=== PATIENT | female | born 1945 | race Caucasian/White ===

== ENCOUNTER 2017-10-21 08:09 | Day surgery (SDC) | payer MEDICARE ==
[2017-10-14 15:36] VITALS: BMI 31.8
[~2017-10-21 08:09] MED LIST: LACTATED RINGERS 1,000 ML IV SCH
[2017-10-21 09:32] VITALS: TEMP 97.6
[2017-10-21] MEDS ORDERED: LIDOCAINE 1% 20 ML VIAL (10MG/ML) FOR IV START INTRADERMA ONE (09:35)
--- NOTE | 2017-10-21 09:46 | P.GSHP ---
History of Present Illness H&P Date: 10/21/17 Chief Complaint: Gastritis This 9-year-old female who's had complaints of epigastric pain gastritis. She will stay for EGD. Past Medical History Past Medical History: CVA/TIA, GERD/Reflux, Hyperlipidemia, Skin Disorder, Thyroid Disorder Additional Past Medical History / Comment(s): TIA 2013, CHRONIC CONSTIPATION, PSORIASIS History of Any Multi-Drug Resistant Organisms: None Reported Past Surgical History: Appendectomy, Cholecystectomy, Hysterectomy, Joint Replacement, Orthopedic Surgery Additional Past Surgical History / Comment(s): RUPTURED OVARIAN CYST. RT SHOULDER SX. RT TKA. RT FOOT SX x 2-. COLONOSCOPY, EGD Past Anesthesia/Blood Transfusion Reactions: No Reported Reaction Past Psychological History: Depression Smoking Status: Never smoker Past Alcohol Use History: None Reported Past Drug Use History: None Reported - Past Family History Mother Family Medical History: Cancer Father Family Medical History: Cancer Sister(s) Family Medical History: Cancer Medications and Allergies Home Medications Medication Instructions Recorded Confirmed Type Apixaban [Eliquis] 2.5 mg PO HS 10/14/17 10/14/17 History DULoxetine HCL [Cymbalta] 120 mg PO HS 10/14/17 10/14/17 History Furosemide [Lasix] 20 mg PO DAILY 10/14/17 10/14/17 History Levothyroxine Sodium [Synthroid] 75 mcg PO DAILY 10/14/17 10/14/17 History Linaclotide [Linzess] 290 mcg PO HS 10/14/17 10/14/17 History Pantoprazole Sodium [Protonix] 40 mg PO HS 10/14/17 10/14/17 History Pravastatin Sodium [Pravachol] 80 mg PO HS 10/14/17 10/14/17 History Zolpidem Tartrate [Ambien] 10 mg PO HS 10/14/17 10/14/17 History Coregunknown Dose) 1 tab PO HS 10/21/17 10/21/17 History Allergies Allergy/AdvReac Type Severity Reaction Status Date / Time ciprofloxacin [From Cipro] Allergy Rash/Hives Verified 10/14/17 15:23 Sulfa (Sulfonamide Allergy Rash/Hives Verified 10/14/17 15:23 Antibiotics) Surgical - Exam Vital Signs Temp Pulse Resp BP Pulse Ox 97.6 F 100 18 175/75 97 10/21/17 09:30 10/21/17 09:30 10/21/17 09:30 10/21/17 09:30 10/21/17 09:30 - General well developed, no distress - Eyes PERRL - ENT normal pinna - Neck no masses - Respiratory normal expansion - Cardiovascular Rhythm: regular - Abdomen Abdomen: soft, non tender Assessment and Plan Assessment: Gastritis. We'll perform EGD.
[2017-10-21] MEDS ORDERED: PROPOFOL 10 MG/ML 20 ML VIAL IV ONE (09:48)
--- NOTE | 2017-10-21 10:00 | P.OP ---
Date of Procedure: 10/21/17 Preoperative Diagnosis: GERD Postoperative Diagnosis: GERD Procedure(s) Performed: EGD Anesthesia: MAC Surgeon: Kurt Valles Pathology: other (Antrum, esophagus) Condition: stable Disposition: PACU Description of Procedure: The patient's placed on the endoscopy table lateral position. She received IV sedation. The gastroscope placed oropharynx and passed in the esophagus into the stomach. Scope then placed through the pylorus. The first and second portion of the duodenum appeared normal. Scope was then brought back the antrum this appeared mildly inflamed a biopsies performed. The scope was retroflexed the patient was noted to have a sliding hiatal hernia. The GE junction was at 38 cm. The distal esophagus appeared mildly inflamed a biopsies performed. The proximal esophagus appeared normal. Scope was withdrawn for patient.
[2017-10-21 10:04] VITALS: RESP 16
[2017-10-21 10:15] VITALS: BP 156/84; PULSE 91
== END 2017-10-21 11:19 | disposition home or self-care (01) ==
LOC: ORWHC2ENDO 08:09
PROVIDERS: ATTEND Surgery
DX: K21.0 Gastro-esophageal reflux disease with esophagitis (principal); K29.50 Unspecified chronic gastritis without bleeding; K44.9 Diaphragmatic hernia without obstruction or gangrene; E78.5 Hyperlipidemia, unspecified; E07.9 Disorder of thyroid, unspecified; I48.91 Unspecified atrial fibrillation; I10 Essential (primary) hypertension; K59.09 Other constipation; L40.9 Psoriasis, unspecified; F32.9 Major depressive disorder, single episode, unspecified; Z88.2 Allergy status to sulfonamides; Z88.1 Allergy status to other antibiotic agents; Z79.01 Long term (current) use of anticoagulants; Z79.899 Other long term (current) drug therapy; Z86.73 Personal history of transient ischemic attack (TIA), and cerebral infarction without residual deficits; Z96.651 Presence of right artificial knee joint; Z90.49 Acquired absence of other specified parts of digestive tract; Z90.710 Acquired absence of both cervix and uterus; Z80.9 Family history of malignant neoplasm, unspecified
CPT/HCPCS: 43239; J2704; 88305; 88342

== ENCOUNTER → 2017-11-21 | Outpatient (CLI) | payer MEDICARE | END | disposition home or self-care (01) | LOC: LABPAT 14:47 | PROVIDERS: ATTEND Dermatology MOHS-Micrographic Surgery | DX: Z01.812 Encounter for preprocedural laboratory examination (principal); L40.0 Psoriasis vulgaris | CPT/HCPCS: 84132 ==

== ENCOUNTER 2017-12-01 11:46 | Day surgery (SDC) | payer MEDICARE ==
[2017-11-20 12:39] VITALS: BMI 32.9
[~2017-12-01 11:46] MED LIST changes: +DEXAMETHASONE SOD PHOSPHATE 10 MG/ML 1 ML VIAL IV ONE; +HEPARIN SODIUM,PORCINE 5,000 UNIT/ML 1 ML VIAL SQ ONE; +HYDROmorphone 0.5 MG/0.5 ML SYRINGE IVP PRN; -LACTATED RINGERS 1,000 ML IV SCH; +LIDOCAINE 1% 20 ML VIAL (10MG/ML) FOR IV START INTRADERMA PRN; +ONDANSETRON 4 MG/2 ML VIAL IVP ONE; +ceFAZolin IN SWFI 2 GM/20 ML SYRINGE IVP ONE
[2017-12-01] MEDS: LACTATED RINGERS 1,000 ML IV SCH (12:31)
[2017-12-01] MEDS ORDERED: MIDAZOLAM 2 MG/2 ML VIAL IV ONE ×2 (12:40)
--- NOTE | 2017-12-01 12:45 | P.GSHP ---
History of Present Illness H&P Date: 12/01/17 Chief Complaint: GERD Cyst 72-year-old female referred from Dr. Singh.The patient has had long- standing problems with reflux esophagitis. The patient underwent recent EGD is found have evidence of esophagitis. Patient has been well informed on the procedure of laparoscopic Mario fundoplication. The patient is aware the risk of the conversion to the open procedure, risk of injury to the stomach, liver and spleen. The patient is also a risk of recurrent GERD and dysphagia symptoms. The patient understands there is a postoperative diet of full liquids for 2 weeks after surgery. Past Medical History Past Medical History: CVA/TIA, GERD/Reflux, Hyperlipidemia, Osteoarthritis (OA) , Skin Disorder, Sleep Apnea/CPAP/BIPAP, Thyroid Disorder Additional Past Medical History / Comment(s): TIA 2013, CHRONIC CONSTIPATION, PSORIASIS, RAPID HEART RATE, USES A C PAP, PSORIATIC ARTHRITIS History of Any Multi-Drug Resistant Organisms: None Reported Past Surgical History: Appendectomy, Cholecystectomy, Hysterectomy, Joint Replacement, Orthopedic Surgery Additional Past Surgical History / Comment(s): RUPTURED OVARIAN CYST. RT SHOULDER SX. RT TKA. RT FOOT SX x 2-. COLONOSCOPY, EGD Past Anesthesia/Blood Transfusion Reactions: No Reported Reaction Smoking Status: Never smoker - Past Family History Mother Family Medical History: Cancer Father Family Medical History: Cancer Sister(s) Family Medical History: Cancer Additional Family Medical History / Comment(s): COLON CANCER, #2 SISTER PANCREATIC CANCER Medications and Allergies Home Medications Medication Instructions Recorded Confirmed Type DULoxetine HCL [Cymbalta] 120 mg PO HS 10/14/17 12/01/17 History Furosemide [Lasix] 20 mg PO DAILY PRN 10/14/17 12/01/17 History Levothyroxine Sodium [Synthroid] 75 mcg PO DAILY 10/14/17 12/01/17 History Linaclotide [Linzess] 290 mcg PO 1800 10/14/17 12/01/17 History Pantoprazole Sodium [Protonix] 40 mg PO HS 10/14/17 12/01/17 History Pravastatin Sodium [Pravachol] 80 mg PO HS 10/14/17 12/01/17 History Zolpidem Tartrate [Ambien] 10 mg PO HS 10/14/17 12/01/17 History Acetaminophen Tab [Tylenol Tab] 1,000 mg PO Q6HR PRN 11/20/17 12/01/17 History Carvedilol [Coreg] 12.5 mg PO BID 11/20/17 12/01/17 History Flecainide [Tambocor] 50 mg PO Q12HR 11/20/17 12/01/17 History busPIRone HCl [Buspar] 15 mg PO BID 11/20/17 12/01/17 History oxyCODONE-APAP 5-325MG [Percocet 1 tab PO Q6HR PRN 11/20/17 12/01/17 History 5-325 mg] Allergies Allergy/AdvReac Type Severity Reaction Status Date / Time ciprofloxacin [From Cipro] Allergy Rash/Hives Verified 12/01/17 12:19 estradiol Allergy Rash/Hives Verified 12/01/17 12:19 Sulfa (Sulfonamide Allergy Rash/Hives Verified 12/01/17 12:19 Antibiotics) Surgical - Exam Vital Signs Temp Pulse Resp BP Pulse Ox 97.6 F 79 16 156/77 96 12/01/17 12:15 12/01/17 12:15 12/01/17 12:15 12/01/17 12:15 12/01/17 12:15 - General well developed, no distress - Eyes PERRL - ENT normal pinna - Neck no masses - Respiratory normal expansion - Cardiovascular Rhythm: regular - Abdomen Abdomen: soft, non tender Results - Labs 11/21/17 14:57 Assessment and Plan Assessment: GERD. We will perform laparoscopic Mario fundal plication.
[2017-12-01] MEDS ORDERED: BUPIVACAINE-EPI 0.5%-1:200,000 10 ML VIAL SQ ONE (13:02)
[2017-12-01] MEDS ORDERED: ePHEDrine 50 MG/ML 1 ML AMP ONE (13:04)
[2017-12-01] MEDS ORDERED: SUCCINYLCHOLINE CHLORIDE 100 MG/5 ML SYR IV ONE (13:04)
[2017-12-01] MEDS ORDERED: MIDAZOLAM 2 MG/2 ML VIAL ONE (13:04)
[2017-12-01] MEDS ORDERED: fentaNYL (PF) 50 MCG/ML 2 ML AMP ONE (13:04)
[2017-12-01] MEDS ORDERED: ROCURONIUM BROMIDE 10 MG/ML 10 ML VIAL IV ONE (13:04)
[2017-12-01] MEDS ORDERED: GLYCOPYRROLATE 0.2 MG/ML 2 ML VIAL ONE (13:04)
[2017-12-01] MEDS ORDERED: NEOSTIGMINE 1 MG/ML 10 ML VIAL ONE (13:04)
[2017-12-01] MEDS ORDERED: LIDOCAINE 1% INJ 10MG/ML (20 ML MDV) ONE (13:04)
[2017-12-01] MEDS ORDERED: PROPOFOL 10 MG/ML 20 ML VIAL IV ONE (13:04)
[2017-12-01] MEDS ORDERED: HYDROmorphone (PF) 1 MG/ML ONE (13:04)
[2017-12-01] MEDS ORDERED: SODIUM CHLORIDE 0.9% 50 ML with ceFAZolin 2,000 MG IV ONE ×2 (13:11)
[2017-12-01] MEDS ORDERED: LACTATED RINGERS 1,000 ML IV ONE (13:48)
[2017-12-01] MEDS ORDERED: ONDANSETRON 4 MG/2 ML VIAL IVP PRN (13:52)
[2017-12-01] MEDS ORDERED: HYDROmorphone 2 MG/ML 1 ML SYRINGE IVP PRN (13:52)
--- NOTE | 2017-12-01 13:52 | P.OP ---
Date of Procedure: 12/01/17 Preoperative Diagnosis: GERD Postoperative Diagnosis: GERD Procedure(s) Performed: Laparoscopic Mario fundoplication Anesthesia: KUSH Surgeon: Kurt Valles Estimated Blood Loss (ml): 5 Pathology: none sent Condition: stable Disposition: PACU Description of Procedure: The patient was placed on the operating table in the supine position. The patient received general anesthesia. And was placed in dorsal lithotomy position. The patient was prepped and draped in the usual sterile fashion. The skin incision sites were anesthetized with 1% local Xylocaine. The skin was incised in the left periumbilical area and then using a blade less 5 mm trocar under direct visualization panel cavity was entered. After adequate insufflation the laparoscope was then placed into the peritoneal cavity. Next a 5 mm trochars placed in the right epigastric position. Another 5 millimeter trocar the right lateral position. Another 5 millimeter trocar in the left lateral position a 5 mm trocar is placed in the left epigastric position. And then the initial 5 mm trocar was exchanged for a 10 mm trocar. The left lateral lobe liver was retracted. The hernia was seen. The crural defect was then dissected using the Harmonic scissors device. A 360 crural dissection was performed the esophagus stomach was reduced back into the peritoneal Cavity. The crural defect was then closed using 2-0 Ethibond suture. Next the fundus of the stomach was mobilized using the Murphy scissors device. and then a 58-Azeri bougie dilator was placed oropharynx passed into the esophagus and stomach the fundal plication wrap was then performed by grasping the fundus posteriorly and bringing it around the esophagus and stomach fundoplication was then performed using 2-0 Ethibond suture. Care was taken that the fundal location rested over top of the intra-abdominal esophagus. There was no injury seen to the stomach or esophagus. The dilator was then withdrawn. The abdomen was irrigated there is no bleeding seen. The trochars were then withdrawn and then skin incision sites were closed using 3-0 Monocryl suture Steri-Strips are applied. Patient thought procedure well and sent to recovery room in stable condition.
[2017-12-01] MEDS ORDERED: ENALAPRILAT 1.25 MG/ML 1 ML VIAL IVP ONE (15:00)
[2017-12-01] MEDS ORDERED: FUROSEMIDE 20 MG TAB PO PRN (16:47)
[2017-12-01] MEDS ORDERED: ZOLPIDEM 5 MG TAB PO PRN (16:47)
[2017-12-01] MEDS ORDERED: oxyCODONE-APAP 5-325MG 1 EACH TAB PO PRN (16:47)
--- NOTE | 2017-12-01 17:26 | P.CONS ---
History of Present Illness - Reason for Consult Consult date: 12/01/17 Medical management - Chief Complaint Acid reflux - History of Present Illness 72-year-old female with history of severe intractable gastroesophageal reflux disease just underwent a Mario fundoplication procedure for treatment. She just came back from the OR and currently she is having pain in her upper abdomen but that is tolerable according to her. Her blood pressure was quite high when she was in the OR: 180-190 systolic. He was given some Vasotec IV. Her last blood pressure reading was 165/86. Patient denied having any symptoms of dizziness, headaches, blurry or double vision. No focal weakness or numbness. No chest pain or shortness of breath. Review of Systems 12 point review of system was performed, negative except for HPI Past Medical History Past Medical History: CVA/TIA, GERD/Reflux, Hyperlipidemia, Osteoarthritis (OA) , Skin Disorder, Sleep Apnea/CPAP/BIPAP, Thyroid Disorder Additional Past Medical History / Comment(s): TIA 2013, CHRONIC CONSTIPATION, PSORIASIS, paroxysmal atrial fibrillation, USES A C PAP, PSORIATIC ARTHRITIS History of Any Multi-Drug Resistant Organisms: None Reported Past Surgical History: Appendectomy, Cholecystectomy, Hysterectomy, Joint Replacement, Orthopedic Surgery Additional Past Surgical History / Comment(s): RUPTURED OVARIAN CYST. RT SHOULDER SX. RT TKA. RT FOOT SX x 2-. COLONOSCOPY, EGD Past Anesthesia/Blood Transfusion Reactions: No Reported Reaction Past Psychological History: Anxiety, Depression Smoking Status: Never smoker Past Alcohol Use History: Rare Past Drug Use History: None Reported - Past Family History Mother Family Medical History: Cancer Father Family Medical History: Cancer Sister(s) Family Medical History: Cancer Additional Family Medical History / Comment(s): COLON CANCER, #2 SISTER PANCREATIC CANCER Medications and Allergies Home Medications Medication Instructions Recorded Confirmed Type DULoxetine HCL [Cymbalta] 120 mg PO HS 10/14/17 12/01/17 History Furosemide [Lasix] 20 mg PO DAILY PRN 10/14/17 12/01/17 History Levothyroxine Sodium [Synthroid] 75 mcg PO DAILY 10/14/17 12/01/17 History Linaclotide [Linzess] 290 mcg PO 1800 10/14/17 12/01/17 History Pantoprazole Sodium [Protonix] 40 mg PO HS 10/14/17 12/01/17 History Pravastatin Sodium [Pravachol] 80 mg PO HS 10/14/17 12/01/17 History Zolpidem Tartrate [Ambien] 10 mg PO HS 10/14/17 12/01/17 History Acetaminophen Tab [Tylenol Tab] 1,000 mg PO Q6HR PRN 11/20/17 12/01/17 History Carvedilol [Coreg] 12.5 mg PO BID 11/20/17 12/01/17 History Flecainide [Tambocor] 50 mg PO Q12HR 11/20/17 12/01/17 History busPIRone HCl [Buspar] 15 mg PO BID 11/20/17 12/01/17 History oxyCODONE-APAP 5-325MG [Percocet 1 tab PO Q6HR PRN 11/20/17 12/01/17 History 5-325 mg] Apixaban [Eliquis] 5 mg PO BID 12/01/17 12/01/17 History Allergies Allergy/AdvReac Type Severity Reaction Status Date / Time ciprofloxacin [From Cipro] Allergy Rash/Hives Verified 12/01/17 12:19 estradiol Allergy Rash/Hives Verified 12/01/17 12:19 Sulfa (Sulfonamide Allergy Rash/Hives Verified 12/01/17 12:19 Antibiotics) Physical Exam Vitals: Vital Signs Temp Pulse Pulse Resp BP BP Pulse Ox 12/01/17 15:50 97.0 F L 76 20 164/78 94 L 12/01/17 15:30 72 18 168/81 100 12/01/17 15:16 68 18 199/86 100 12/01/17 14:46 73 16 185/81 100 12/01/17 14:30 71 18 185/80 100 12/01/17 14:15 70 18 178/79 100 12/01/17 14:04 96.8 F L 74 16 179/72 93 L 12/01/17 12:15 97.6 F 79 16 156/77 96 Intake and Output 12/01/17 12/01/17 12/01/17 06:59 14:59 22:59 Intake Total 1200 650 Output Total 5 Balance 1195 650 Intake: IV 1200 650 Output: Estimated Blood Loss 5 Other: Weight 84.368 kg Patient Weight 12/02/17 06:59 Weight 84.368 kg Constitutional: No acute distress, conversant, pleasant Eyes:Anicteric sclerae, moist conjunctiva, no lid-lag, PERRLA, ENMT: Oropharynx clear, no erythema, exudates Neck: Supple, FROM, no masses, or JVD, No carotid bruits, No thyromegaly Lungs: Clear to auscultation, Clear to percussion, Normal respiratory effort, no accessory muscle use Cardiovascular: Heart regular in rate and rhythm, No murmurs, gallops, or rubs, No peripheral edema Abdominal: Soft, surgical dressing over the upper abdomen, no guarding, rebound or rigidity, Normoactive bowel sounds, No hepatomegaly, No splenomegaly, No palpable mass Skin: Normal temperature, tone, texture, turgor, no induration, No subcutaneous nodules, No rash, lesions, No ulcers Extremities: No digital cyanosis, No clubbing, Pedal pulses intact and symmetrical, Radial pulses intact and symmetrical, No calf tenderness Psychiatric: Alert and oriented to person, place and time, appropriate affect, intact judgement Neuro: Muscles Strength 5/5 in all 4 extremities, Sensation to light touch grossly present throughout, Cranial nerves II-XII grossly intact, no focal sensory deficits Results CBC & Chem 7: 11/21/17 14:57 Assessment and Plan Plan: #1 POD #1 status post Mario fundoplication: Per surgery Pain control with opioids #2 Accelerated hypertension: Resume Coreg 12.5 mg by mouth twice a day Hold lasix as patient won't be eating much the next few days because of the surgery to avoid dehydration Vasotec I.V. when necessary #3 Diabetes type 2: Sliding scale insulin with blood sugar checks every before meals and at bedtime #4 History of paroxysmal atrial fibrillation/history of CVA: Resume flecainide and Coreg Resume anticoagulation once okay with surgery #5 History of hyperlipidemia/psoriasis/sleep apnea on CPAP/hypothyroidism: All stable Resume home medications #6 DVT prophylaxis: Start anticoagulation once okay with surgery
[2017-12-01] MEDS: CARVEDILOL 12.5 MG TAB PO SCH (17:55)
[2017-12-01] MEDS: D5-0.45% NACL WITH KCL 20MEQ/L 1,000 ML IV SCH ×2 (18:52→21:47)
[2017-12-01] MEDS ORDERED: DULoxetine HCL 60 MG CAPSULE.DR PO SCH (21:00)
[2017-12-01] MEDS ORDERED: PRAVASTATIN SODIUM 80 MG TAB PO SCH (21:00)
[2017-12-01] MEDS ORDERED: PANTOPRAZOLE 40 MG TABLET PO SCH (21:00)
[2017-12-01] MEDS: FLECAINIDE 50 MG TAB PO SCH (21:42)
[2017-12-01] MEDS: busPIRone HCl 10 MG TAB PO SCH (21:42)
[2017-12-01] MEDS: ACETAMINOPHEN TAB 500 MG TAB PO PRN (21:55)
[2017-12-01] MEDS: FAMOTIDINE 20 MG/2 ML VIAL IV SCH (22:28)
[2017-12-02] MEDS: D5-0.45% NACL WITH KCL 20MEQ/L 1,000 ML IV SCH (03:45)
[2017-12-02] MEDS: ACETAMINOPHEN TAB 500 MG TAB PO PRN (04:05)
[2017-12-02] MEDS: LACTATED RINGERS 1,000 ML IV SCH (05:31)
[2017-12-02] MEDS ORDERED: LEVOTHYROXINE 75 MCG TAB PO SCH (06:30)
[2017-12-02 07:43] VITALS: PULSE 87; RESP 16; TEMP 97.3
[2017-12-02] MEDS: CARVEDILOL 12.5 MG TAB PO SCH (08:10)
[2017-12-02] MEDS: FLECAINIDE 50 MG TAB PO SCH (08:10)
[2017-12-02] MEDS: busPIRone HCl 10 MG TAB PO SCH (08:10)
--- NOTE | 2017-12-02 08:36 | FL ---
EXAMINATION TYPE: FL esophagus cervic/pharynx DATE OF EXAM: 12/01/2017 HISTORY: Post Darius fundoplication COMPARISON: NONE TECHNIQUE: A double contrast esophagram is performed utilizing air and barium. FINDINGS: 15 seconds of fluoroscopy and 8 image submitted. There is tertiary contractions of esophagus with mild delay at the level the GE junction. There was s pillage of contrast into the stomach without complete obstruction. No extravasation. Small amount of free air noted likely postsurgical. IMPRESSION: 1. Mild to moderate delay at the level the GE junction.
[2017-12-02] MEDS: FAMOTIDINE 20 MG/2 ML VIAL IV SCH (08:41)
[2017-12-02] MEDS ORDERED: ENOXAPARIN 40 MG/0.4 ML SYRINGE SQ SCH (09:00)
--- NOTE | 2017-12-02 10:53 | P.DS ---
Providers Expected date of discharge: 12/02/17 Attending physician: Kurt Valles Consults: 12/01/17 13:52 Consult Physician Routine Consulting Provider: Issa Chilel Consult Reason/Comments: medical management Do you want consulting provider notified?: Yes Primary care physician: Luly Trevino MD Hospital Course: 72-year-old female with a long-standing history of reflux esophagitis. Underwent a recent EGD found evidence of esophagitis. Patient elected to undergo laparoscopic wilfrido fundoplication for symptomatic esophageal reflux disease. Postprocedure there were no complications. Patient understood that postoperative diet of full liquids would be for a 2 week duration after surgery. Patient was felt to be hemodynamically stable and appropriate to proceed with a discharge to home Impression discharge diagnosis Symptomatic esophageal reflux disease A recent EGD showing evidence of esophagitis Status post December 01 laparoscopic wilfrido Type 2 diabetes Paroxysmal atrial fibrillation History of a prior CVA Hyperlipidemia Sleep apnea on CPAP therapy The above impression and plan of care have been discussed and directed by signing physician. Catrachita Ortiz nurse practitioner acting as scribe for signing physician. Plan - Discharge Summary Discharge Rx Participant: No New Discharge Prescriptions: Continue Pravastatin Sodium [Pravachol] 80 mg PO HS Levothyroxine Sodium [Synthroid] 75 mcg PO DAILY DULoxetine HCL [Cymbalta] 120 mg PO HS Furosemide [Lasix] 20 mg PO DAILY PRN PRN Reason: FLUID RETENTION IN HANDS Zolpidem Tartrate [Ambien] 10 mg PO HS Pantoprazole Sodium [Protonix] 40 mg PO HS Linaclotide [Linzess] 290 mcg PO 1800 Flecainide [Tambocor] 50 mg PO Q12HR Carvedilol [Coreg] 12.5 mg PO BID oxyCODONE-APAP 5-325MG [Percocet 5-325 mg] 1 tab PO Q6HR PRN PRN Reason: Pain Acetaminophen Tab [Tylenol] 1,000 mg PO Q6HR PRN PRN Reason: Pain busPIRone HCl [Buspar] 15 mg PO BID Apixaban [Eliquis] 5 mg PO BID Discharge Medication List DULoxetine HCL [Cymbalta] 120 mg PO HS 10/14/17 [History] Furosemide [Lasix] 20 mg PO DAILY PRN 10/14/17 [History] Levothyroxine Sodium [Synthroid] 75 mcg PO DAILY 10/14/17 [History] Linaclotide [Linzess] 290 mcg PO 1800 10/14/17 [History] Pantoprazole Sodium [Protonix] 40 mg PO HS 10/14/17 [History] Pravastatin Sodium [Pravachol] 80 mg PO HS 10/14/17 [History] Zolpidem Tartrate [Ambien] 10 mg PO HS 10/14/17 [History] Acetaminophen Tab [Tylenol] 1,000 mg PO Q6HR PRN 11/20/17 [History] Carvedilol [Coreg] 12.5 mg PO BID 11/20/17 [History] Flecainide [Tambocor] 50 mg PO Q12HR 11/20/17 [History] busPIRone HCl [Buspar] 15 mg PO BID 11/20/17 [History] oxyCODONE-APAP 5-325MG [Percocet 5-325 mg] 1 tab PO Q6HR PRN 11/20/17 [History] Apixaban [Eliquis] 5 mg PO BID 12/01/17 [History] Follow up Appointment(s)/Referral(s): Luly Trevino MD [Primary Care Provider] - 1 Week Kurt Valles MD [STAFF PHYSICIAN] - 1 Week Patient Instructions/Handouts: *Surgery [facility] - ([facility]) Lap Wilfrido Fundiplication Post-Op Instructions Activity/Diet/Wound Care/Special Instructions: No tub bath for six weeks. Shower daily. No lifting over 4 pounds for the next 6 weeks. May use ice packs to surgical site. No driving while taking narcotic for pain. 2 week duration for liquid diet Discharge Disposition: HOME SELF-CARE
[2017-12-02 11:11] VITALS: BP 162/83
== END 2017-12-02 11:25 | disposition home or self-care (01) ==
LOC: OR 11:46 → 4MS4W 14:04 → OR 12-02 11:25
PROVIDERS: ATTEND Surgery
DX: K21.0 Gastro-esophageal reflux disease with esophagitis (principal); Z86.73 Personal history of transient ischemic attack (TIA), and cerebral infarction without residual deficits; E78.5 Hyperlipidemia, unspecified; E03.9 Hypothyroidism, unspecified; I10 Essential (primary) hypertension; I48.0 Paroxysmal atrial fibrillation; Z79.01 Long term (current) use of anticoagulants; M19.90 Unspecified osteoarthritis, unspecified site; G47.30 Sleep apnea, unspecified; Z99.89 Dependence on other enabling machines and devices; E11.9 Type 2 diabetes mellitus without complications; Z79.4 Long term (current) use of insulin; K59.09 Other constipation; L40.50 Arthropathic psoriasis, unspecified; Z79.899 Other long term (current) drug therapy; Z88.1 Allergy status to other antibiotic agents; Z88.2 Allergy status to sulfonamides; Z88.8 Allergy status to other drugs, medicaments and biological substances
CPT/HCPCS: 74210; 43280; J2250; J1170 ×2; J1644; J1100; J2710; Q9967; J2405; J2001; J1650; J3010; J0690; J0330; J2704; 84132

== ENCOUNTER 2018-01-16 09:23 | Inpatient (IN) | payer MEDICARE ==
[2018-01-16] MEDS ORDERED: IBUPROFEN 600 MG STARTER PACK 4 TAB BTL PO STA (10:44)
--- NOTE | 2018-01-16 10:44 | ED ---
General Adult HPI - General Chief complaint: Fever Stated complaint: COUGH, CHEST CONGESTION Time Seen by Provider: 01/16/18 10:17 Source: patient, RN notes reviewed Mode of arrival: ambulatory Limitations: no limitations - History of Present Illness Initial comments: Chief complaint and history of present illness this is a 72-year-old female who with flu-type symptoms. Mild headache dry sore throat dry cough muscle aches and pains. Frequent coughing causes anterior chest wall discomfort which is reproducible palpation. No nausea no vomiting no diarrhea no neuro deficits complained of. Patient presents with a fever of 100.4. - Related Data Home Medications Medication Instructions Recorded Confirmed DULoxetine HCL [Cymbalta] 120 mg PO HS 10/14/17 01/16/18 Furosemide [Lasix] 20 mg PO DAILY PRN 10/14/17 01/16/18 Linaclotide [Linzess] 290 mcg PO DAILY@1800 10/14/17 01/16/18 Pantoprazole Sodium [Protonix] 40 mg PO HS 10/14/17 01/16/18 Pravastatin Sodium [Pravachol] 80 mg PO HS 10/14/17 01/16/18 Acetaminophen Tab [Tylenol] 1,000 mg PO Q6HR PRN 11/20/17 01/16/18 Carvedilol [Coreg] 12.5 mg PO BID 11/20/17 01/16/18 Flecainide [Tambocor] 50 mg PO Q12HR 11/20/17 01/16/18 oxyCODONE-APAP 5-325MG [Percocet 1 tab PO Q6HR PRN 11/20/17 01/16/18 5-325 mg] Apixaban [Eliquis] 5 mg PO BID 12/01/17 01/16/18 Allergies Allergy/AdvReac Type Severity Reaction Status Date / Time ciprofloxacin [From Cipro] Allergy Rash/Hives Verified 01/16/18 10:09 estradiol Allergy Rash/Hives Verified 01/16/18 10:09 Sulfa (Sulfonamide Allergy Rash/Hives Verified 01/16/18 10:09 Antibiotics) Review of Systems ROS Statement: Those systems with pertinent positive or pertinent negative responses have been documented in the HPI. Review of systems. Patient has mild headache no visual acuity changes no stiff neck she does have a sore throat from coughing. Frequent coughing dry sounding. Muscle aches and pains to her chest wall from coughing. No nausea no vomiting no diarrhea. No new rashes. She does have history of psoriasis and psoriatic arthritis. All systems are reviewed Past medical problems significant for TIA, GERD, hyperlipidemia, psoriatic arthritis, psoriasis, sleep apnea, hypothyroidism. The patient's surgeries include appendectomy, cholecystectomy, hernia repair, total hysterectomy, right total knee replacement, history also ruptured ovarian cyst surgery on her right shoulder and 2 surgeries on her right foot. The patient's family history significant for mother had breast cancer father had melanoma. The sister had pancreatic cancer. The patient has ALLERGIES to Cipro, estradiol and sulfa drugs. Nonsmoker drink alcohol rarely socially. ROS Other: All systems not noted in ROS Statement are negative. Past Medical History Past Medical History: CVA/TIA, GERD/Reflux, Hyperlipidemia, Osteoarthritis (OA) , Skin Disorder, Sleep Apnea/CPAP/BIPAP, Thyroid Disorder Additional Past Medical History / Comment(s): TIA 2013, CHRONIC CONSTIPATION, PSORIASIS, paroxysmal atrial fibrillation, USES A C PAP, PSORIATIC ARTHRITIS History of Any Multi-Drug Resistant Organisms: None Reported Past Surgical History: Appendectomy, Cholecystectomy, Hernia Repair, Hysterectomy, Joint Replacement, Orthopedic Surgery Additional Past Surgical History / Comment(s): RUPTURED OVARIAN CYST. RT SHOULDER SX. RT TKA. RT FOOT SX x 2-. COLONOSCOPY, EGD Past Anesthesia/Blood Transfusion Reactions: No Reported Reaction Past Psychological History: Anxiety, Depression Smoking Status: Never smoker Past Alcohol Use History: Rare Past Drug Use History: None Reported - Past Family History Mother Family Medical History: Cancer Father Family Medical History: Cancer Sister(s) Family Medical History: Cancer Additional Family Medical History / Comment(s): COLON CANCER, #2 SISTER PANCREATIC CANCER General Exam - General Exam Comments Initial Comments: General: The patient is awake and alert, complaining of flu-type symptoms with a fever, muscle aches and pains mild headache sore throat dry cough. Vital signs temperature 100.4 pulse 100 respiratory rate 18 pulse ox 95% room air blood pressure 136/61 Eye: Pupils are equal, round and reactive to light, extra-ocular movements are intact ; there is normal conjunctiva bilaterally. No signs of icterus. History of cataract surgery. Ears, nose, mouth and throat: There are moist mucous membranes and no oral lesions. Neck: The neck is supple, no meningeal irritation, no meningismus. No exudate on tonsils her pharynx. Cardiovascular: There is a regular rate and rhythm. No murmur, rub or gallop is appreciated. Respiratory: Lungs are clear to auscultation, respirations are non-labored, breath sounds are equal. No wheezes, stridor, rales, or rhonchi. Gastrointestinal: Soft, non-distended, non-tender abdomen without masses or organomegaly noted. There is no rebound or guarding present. No CVA tenderness. Bowel sounds are unremarkable. Back: There is no tenderness to palpation in the midline. Musculoskeletal: Generalized muscle aches and pains. History of psoriatic arthritis. Neurological: No complaints of any neuro deficits. No dizziness , ambulating without difficulty. Skin: History of psoriasis. Limitations: no limitations Course Vital Signs 01/16/18 09:40 Temperature 100.4 F H Pulse Rate 109 H Respiratory 18 Rate Blood Pressure 136/61 O2 Sat by Pulse 95 Oximetry Medical Decision Making - Medical Decision Making Medical decision making; patient can emergency room with flu-type symptoms. Lab reports positive influenza A. The patient did get a flu shot this year. Chest x-ray was done and reviewed by radiologist his impression is patient is rotated and exam is expiratory. There are overlying cardiac leads. No evidence pneumothorax or pleural effusion. Cardiac mediastinal silhouette, pulmonary vascularity and coty within normal limits according to technique. Question some patchy retrocardiac density. Impression difficult to exclude left lower lobe pneumonia, correlate, follow-up suggested. As read by Dr. Banerjee No crepitus or rales appreciated on recheck. Patient received Tamiflu 75 mg by mouth while in emergency room. As well as ibuprofen for muscle aches and pains and fever. The patient will be given Rocephin 1 g, azithromycin 500. Blood cultures been drawn. I discussed the case with the patient at bedside as well as Dr. Mariee, on -call hospitalist for Dr. Singh. Patient be admitted to her service continued on Tamiflu and antibiotics. - Lab Data Lab Results 01/16/18 Range/Units 10:49 Influenza Type A RNA Detected H (Not Detectd) Influenza Type B (PCR) Not Detected (Not Detectd) Disposition Clinical Impression: Community acquired pneumonia, Influenza Disposition: ADMITTED IP TO THIS HOSP Condition: Fair Referrals: SouPapi bañuelos DO [Primary Care Provider] - 1-2 days
--- NOTE | 2018-01-16 11:06 | XR ---
EXAMINATION TYPE: XR chest 2V DATE OF EXAM: 01/16/2018 COMPARISON: NONE HISTORY: Fever and cough for 2 days TECHNIQUE: Frontal and lateral views of the chest are obtained. FINDINGS: There is no focal air space opacity, pleural effusion, or pneumothorax seen. The cardiac silhouette size is within normal limits. The osseous structures are intact. Mild to moderate multil evel degenerative changes of the thoracic spine are noted. IMPRESSION: No acute cardiopulmonary process.
[2018-01-16] MEDS ORDERED: OSELTAMIVIR 75 MG CAP PO STA (11:43)
[2018-01-16] MEDS ORDERED: SODIUM CHLORIDE 0.9% 500 ML IV ONE (11:56)
[2018-01-16] MEDS ORDERED: SODIUM CHLORIDE 0.9% 1,000 ML IV SCH (12:00)
[2018-01-16] MEDS ORDERED: AZITHROMYCIN 500 MG in SODIUM CHLORIDE 0.9% 250 ML IVPB STA (12:01)
[2018-01-16] MEDS ORDERED: NALOXONE 0.4 MG/ML 1 ML VIAL IV PRN (12:08)
[2018-01-16] MEDS ORDERED: ACETAMINOPHEN TAB 325 MG TAB PO PRN (12:08)
[2018-01-16] MEDS ORDERED: FUROSEMIDE 20 MG TAB PO PRN (12:12)
[2018-01-16] MEDS ORDERED: cefTRIAXone IN SWFI 1,000 MG/10 ML SYRINGE IVP ONE (12:15)
[2018-01-16 12:26] LABS: Basophils # (A) 0.1 k/uL (0-0.2); Basophils % (A) 1 %; Eosinophils # (A) 0.1 k/uL (0-0.7); Eosinophils % (A) 2 %; HCT 37.9 % (34.0-46.0); HGB 12.4 gm/dL (11.4-16.0); Lymphocytes # (A) 0.4 k/uL (1.0-4.8); Lymphocytes % (A) 7 %; MCH 27.9 pg (25.0-35.0); MCHC 32.6 g/dL (31.0-37.0); MCV 85.6 fL (80.0-100.0); Mean Platelet Volume 6.8; Monocytes # (A) 0.5 k/uL (0-1.0); Monocytes % (A) 9 %; Neutrophils # (A) 4.1 k/uL (1.3-7.7); Neutrophils % (A) 80 %; Platelet Count 225 k/uL (150-450); RBC 4.43 m/uL (3.80-5.40); RDW 14.9 % (11.5-15.5); WBC 5.2 k/uL (3.8-10.6)
[2018-01-16 12:39] LABS: ALT 26 U/L (9-52); AST 22 U/L (14-36); Albumin 3.9 g/dL (3.5-5.0); Alkaline Phosphatase 142 U/L (38-126); Anion Gap 12 mmol/L; Blood Urea Nitrogen 19 mg/dL (7-17); Calcium 9.5 mg/dL (8.4-10.2); Carbon Dioxide 21 mmol/L (22-30); Chloride 104 mmol/L (98-107); Glucose 88 mg/dL (74-99); Potassium 4.8 mmol/L (3.5-5.1); Sodium 137 mmol/L (137-145); Total Bilirubin 0.3 mg/dL (0.2-1.3); Total Protein 6.6 g/dL (6.3-8.2)
[2018-01-16 13:00] LABS: Appearance,Urine Clear (Clear); Bilirubin,Urine Negative (Negative); Blood,Urine Negative (Negative); Color,Urine Yellow; Glucose,Urine (UA) Negative (Negative); Ketones,Urine Negative (Negative); Leukocyte Esterase,Urine Trace (Negative); Mucus,Urine Rare /hpf; Nitrite,Urine Negative (Negative); PH, Urine 5.5 (5.0-8.0); Protein,Urine Negative (Negative); RBC,Urine 2 /hpf (0-5); Specific Gravity,Urine 1.014 (1.001-1.035); Squamous Epithelial Cell,Urine 2 /hpf (0-4); Urobilinogen,Urine <2.0 mg/dL (<2.0); WBC,Urine 5 /hpf (0-5)
[2018-01-16] MEDS: CARVEDILOL 12.5 MG TAB PO SCH (17:56)
[2018-01-16] MEDS: oxyCODONE-APAP 5-325MG 1 EACH TAB PO PRN (17:58)
--- NOTE | 2018-01-16 20:33 | HP ---
HISTORY AND PHYSICAL DATE OF SERVICE: 01/16/2018. CHIEF COMPLAINT: Fever and chest congestion. BRIEF HISTORY: Patient is 72-year-old female patient with a history of CVA/TIA, obstructive sleep apnea, hypothyroidism, presented to ED with a complaint of flu-like symptoms. The patient says started about a few days ago. Patient has some fever this morning was 100.4. She has had severe chest congestion with cough which was initially clear but has been getting greenish and yellowish. Patient was starting to have more lethargy and shortness of breath and diaphoresis. She chose to come to the ER. PAST MEDICAL HISTORY: CVA/TIA, gastroesophageal reflux disease. Hyperlipidemia, osteoarthritis, obstructive sleep apnea, hypothyroidism, history of paroxysmal atrial fibrillation. SURGICAL HISTORY: Appendectomy, cholecystectomy, hernia repair, hysterectomy, joint replacement, orthopedic surgery, history of colonoscopy, right shoulder surgery. She has no history of smoking or alcohol abuse. FAMILY HISTORY: Significant for history of colon cancer and a history of pancreatic cancer in family members. ALLERGIC: TO CIPRO, ESTRADIOL AND SULFA DRUGS. MEDICATIONS: Patient is on: 1. Cymbalta 120 mg p.o. q.h.s. 2. Lasix 20 mg p.o. daily. 3. Linzess 290 mcg daily. 4. Protonix 40 mg daily. 5. Pravachol 80 mg daily. 6. Tylenol 1000 mg q.6 hours p.r.n. 7. Coreg 12.5 mg p.o. b.i.d. 8. Tambocor 50 mg p.o. q.12 hours. 9. Oxycodone 1 p.o. q.4 hours p.r.n. 10.Eliquis 5 mg p.o. b.i.d. REVIEW OF SYSTEMS: The patient gives history of fever, chills, headaches as described above. HEENT no vision, hearing loss. Respiratory: Shortness of breath and wheezing. Cardiovascular: No chest pain or palpitations. GI/abdomen: No nausea, vomiting, diarrhea. Genitourinary: No hematuria or dysuria. Neurological examination: No gross motor or sensory deficits. No dizziness or lightheadedness. Skin without any rashes or pigmentation. The rest of 14 point review of system is unremarkable. PHYSICAL EXAMINATION: Vital signs: Temperature of 100, pulse 100, respiration 18, O2 saturation 95%, blood pressure 136/61. HEENT: Atraumatic, normocephalic. Pupils equal and reactive to light. Extraocular movements intact. Buccal mucosa is moist. NECK: Supple. No goiter or lymphadenopathy. JVD is negative. No carotid bruit heard. Diffuse bilateral wheezing and rhonchi. Heart is tachycardic regular rhythm. ABDOMEN: Soft, nontender, nondistended. Bowel sounds positive. EXTREMITIES: No edema, clubbing or cyanosis. Neurological examination: Cranial nerves 2-12 grossly intact. No gross motor or sensory deficit. LABS: Influenza A is positive. CBC white blood count 5.3, hemoglobin 12.4, hematocrit of 37.9. Chem profile sodium 137, potassium 4.8, chloride 103, bicarb 29, BUN 19, creatinine 1.05. The patient was positive for influenza A, chest x-ray shows difficult to exclude left lower lobe pneumonia. ASSESSMENT: 1. Left lower lobe pneumonia. 2. Influenza A. 3. Mild renal injury dehydration. 4. Tachycardia possibly secondary to flu and pneumonia. 5. History of hyperlipidemia. 6. Transient ischemic attack/cerebrovascular accident. 7. Deep vein thrombosis prophylaxis. PLAN: We will plan to admit the patient to telemetry. Start patient on IV Rocephin and Zithromax. The patient will be started on Tamiflu. Will resume home medications. Will monitor blood pressure and vital signs closely. Adjust medications if needed. Patient will be started back on all home medications. Will make adjustments if needed. MMODL / IJN: [id number] /
[2018-01-16] MEDS: DULoxetine HCL 60 MG CAPSULE.DR PO SCH (22:08)
[2018-01-16] MEDS: FAMOTIDINE 20 MG TAB PO SCH (22:08)
[2018-01-16] MEDS: PRAVASTATIN SODIUM 80 MG TAB PO SCH (22:08)
[2018-01-16] MEDS: PANTOPRAZOLE 40 MG TABLET PO SCH (22:08)
[2018-01-16] MEDS: FLECAINIDE 50 MG TAB PO SCH (22:08)
[2018-01-16] MEDS: APIXABAN 5 MG TAB PO SCH (22:08)
[2018-01-16] MEDS: SODIUM CHLORIDE 0.9% 1,000 ML IV SCH (22:10)
[2018-01-17] MEDS: SODIUM CHLORIDE 0.9% 1,000 ML IV SCH ×2 (06:53→15:02)
[2018-01-17] MEDS: ACETAMINOPHEN TAB 500 MG TAB PO PRN ×2 (06:55→17:32)
[2018-01-17] MEDS: CARVEDILOL 12.5 MG TAB PO SCH ×2 (07:36→17:32)
[2018-01-17] MEDS: APIXABAN 5 MG TAB PO SCH ×2 (07:36→21:02)
[2018-01-17] MEDS: FAMOTIDINE 20 MG TAB PO SCH (07:36)
[2018-01-17] MEDS: FLECAINIDE 50 MG TAB PO SCH ×2 (07:37→21:02)
[2018-01-17] MEDS ORDERED: cefTRIAXone IN SWFI 1,000 MG/10 ML SYRINGE IVP SCH (12:00)
[2018-01-17] MEDS ORDERED: ZOLPIDEM 5 MG TAB PO SCH (21:00)
[2018-01-17] MEDS: DULoxetine HCL 60 MG CAPSULE.DR PO SCH (21:02)
[2018-01-17] MEDS: PANTOPRAZOLE 40 MG TABLET PO SCH (21:02)
[2018-01-17] MEDS: PRAVASTATIN SODIUM 80 MG TAB PO SCH (21:02)
[2018-01-18] MEDS: oxyCODONE-APAP 5-325MG 1 EACH TAB PO PRN
[2018-01-18] MEDS: FLECAINIDE 50 MG TAB PO SCH (07:26)
[2018-01-18] MEDS: APIXABAN 5 MG TAB PO SCH (07:26)
[2018-01-18] MEDS: CARVEDILOL 12.5 MG TAB PO SCH (07:26)
[2018-01-18 07:57] VITALS: BP 155/82; PULSE 86; RESP 16; TEMP 97.1
[2018-01-18] MEDS ORDERED: CEFUROXIME 250 MG TAB PO SCH (08:00)
[2018-01-18] MEDS ORDERED: OSELTAMIVIR 75 MG CAP PO SCH (10:00)
--- NOTE | 2018-01-18 11:00 | PN ---
PROGRESS NOTE DATE OF SERVICE: January 17, 2018. PRESENTING COMPLAINT: Fever, congested. INTERVAL HISTORY: This is a patient admitted with with acute influenza A. The patient was seen by me yesterday on January 17, 2018. Breathing is better. Cough is better. Sputum production has gone down. Appetite is much improved. He has been up to the bathroom. REVIEW OF SYSTEMS: Done for constitutional, cardiovascular, GI, pulmonary, relevant findings as above. CURRENT MEDICATIONS: Reviewed that include IV ceftriaxone. PHYSICAL EXAMINATION: Temperature 98.7, pulse 97, respiratory 18, blood pressure 130/71, pulse ox 94% on room air. General appearance: Sitting up, more comfortable. Eyes pupils are equal, conjunctivae normal. HEENT external appearance of oral cavity normal. Neck JVD not raised. Mass not palpable. Respiratory effort normal. Lungs fair entry. Cardiovascular 1st and 2nd sounds normal. No edema. ABDOMEN: Soft, nontender. Liver and spleen not palpable. Psychiatry: Alert and oriented x3. Mood and affect normal. INVESTIGATIONS: The patient's labs from yesterday showed a white count of 5.2, potassium 4.8, BUN 19, creatinine 1.05. ASSESSMENT: 1. Left lower lobe pneumonia. Consider gram-negative organism, present on admission. 2. Acute influenza A possible pneumonitis with great significant improvement. 3. Obesity; BMI 30.1. 4. Hyperlipidemia. 5. Gastroesophageal reflux disease. 6. Primary osteoarthritis. 7. Psoriasis including psoriatic arthritis in the hands and feet. 8. Obstructive sleep apnea uses CPAP. PLAN: Continue current medication and treatment plan. We will switch over the patient to oral antibiotic in the morning. Clinically patient has greatly improved. We will just watch her overnight and complete the course of Tamiflu. Repeat BMP in the morning. Care was discussed in detail with the patient. Questions were answered. MMODL / IJN: [id number] /
[2018-01-18 11:03] LABS: Anion Gap 10 mmol/L; Blood Urea Nitrogen 10 mg/dL (7-17); Carbon Dioxide 22 mmol/L (22-30); Chloride 109 mmol/L (98-107); Glucose 106 mg/dL (74-99); Potassium 4.3 mmol/L (3.5-5.1); Sodium 141 mmol/L (137-145)
--- NOTE | 2018-01-18 22:30 | DS ---
DISCHARGE SUMMARY FINAL DIAGNOSES: 1. Left lower lobe pneumonia, consider gram-negative organism, present on admission. 2. Acute influenza A, possible pneumonitis, present on admission. 3. Obesity; BMI of 30.1. 4. Hyperlipidemia. 5. Gastroesophageal reflux disease. 6. Primary osteoarthritis. 7. Psoriasis including psoriatic arthritis in hands and feet. 8. Obstructive sleep apnea, uses CPAP. 9. Paroxysmal atrial fibrillation. The patient is chronically on Tamiflu. HOSPITAL COURSE: This patient presented with influenza A and a possible bacterial pneumonia. Given IV ceftriaxone and Tamiflu. Doing much better by the time of discharge. On exam, lungs are clear. Cardiovascular, 1st and 2nd sounds normal. Care was discussed with the patient. DISCHARGE MEDICATIONS: 1. Cymbalta chronic 120 mg at bedtime. 2. Lasix 20 mg p.o. daily p.r.n. 3. Linzess 290 mcg p.o. daily at 6 p.m. 4. Protonix 40 mg at bedtime. 5. Pravachol 80 mg at bedtime. 6. Tylenol 1000 mg p.o. every 6 hours p.r.n. 7. Coreg 12.5 p.o. b.i.d. 8. Flecainide 50 mg p.o. every 12. 9. Percocet 5 one tab every 6 hours p.r.n. 10.Eliquis 5 mg p.o. b.i.d. 11.Ceftin 500 mg p.o. b.i.d. 6 tablets. 12.Tamiflu 75 mg every 12, 10 capsules. FOLLOWUP: Follow up with Dr. Singh in 3 days. MMODL / RAULN: [id number] /
== END 2018-01-18 14:10 | disposition home or self-care (01) | DRG 179 ==
LOC: EC 09:23 → 5MS5E 12:08
PROVIDERS: ADMIT Hospitalist; ATTEND Hospitalist
DX: J15.6 Pneumonia due to other Gram-negative bacteria (principal); I48.0 Paroxysmal atrial fibrillation; E86.0 Dehydration; E03.9 Hypothyroidism, unspecified; E66.9 Obesity, unspecified; L40.50 Arthropathic psoriasis, unspecified; E78.5 Hyperlipidemia, unspecified; J10.08 Influenza due to other identified influenza virus with other specified pneumonia; J12.89 Other viral pneumonia; G47.33 Obstructive sleep apnea (adult) (pediatric); K21.9 Gastro-esophageal reflux disease without esophagitis; M19.91 Primary osteoarthritis, unspecified site; Z80.0 Family history of malignant neoplasm of digestive organs; Z86.73 Personal history of transient ischemic attack (TIA), and cerebral infarction without residual deficits; Z90.710 Acquired absence of both cervix and uterus; Z88.1 Allergy status to other antibiotic agents; Z88.2 Allergy status to sulfonamides; Z88.8 Allergy status to other drugs, medicaments and biological substances; Z79.891 Long term (current) use of opiate analgesic; Z79.899 Other long term (current) drug therapy
CPT/HCPCS: 36415; 71046; 80048; 80053; 81001; 85025; 87040; 87502; 96361; 96374; 99284

== ENCOUNTER 2018-07-30 06:49 | Day surgery (SDC) | payer MEDICARE ==
[2018-07-28 11:55] VITALS: BMI 30.1
[~2018-07-30 06:49] MED LIST changes: -DEXAMETHASONE SOD PHOSPHATE 10 MG/ML 1 ML VIAL IV ONE; -HEPARIN SODIUM,PORCINE 5,000 UNIT/ML 1 ML VIAL SQ ONE; -HYDROmorphone 0.5 MG/0.5 ML SYRINGE IVP PRN; +LACTATED RINGERS 1,000 ML IV SCH; -LIDOCAINE 1% 20 ML VIAL (10MG/ML) FOR IV START INTRADERMA PRN; -ONDANSETRON 4 MG/2 ML VIAL IVP ONE; -ceFAZolin IN SWFI 2 GM/20 ML SYRINGE IVP ONE
[2018-07-30 07:10] VITALS: TEMP 98.1
[2018-07-30] MEDS ORDERED: LACTATED RINGERS 1,000 ML IV ONE (07:16)
[2018-07-30] MEDS ORDERED: LIDOCAINE 1% INJ 10MG/ML (20 ML MDV) ONE (07:59)
[2018-07-30] MEDS ORDERED: PROPOFOL 10 MG/ML 20 ML VIAL IV ONE (07:59)
--- NOTE | 2018-07-30 08:41 | P.PCN ---
Date of Procedure: 07/30/18 Procedure(s) Performed: Procedure: Total colonoscopy. Preoperative diagnosis: Change in bowel habits and family history of colon cancer and history of polyps. Postoperative diagnosis: Less than ideal preparation, otherwise, exam to the cecum within normal limits. Preparation: HalfLytely prep. Sedation: Was provided by anesthesia. Brief clinical history: The patient is a 73-year-old female with history of chronic constipation, has been having issues with diarrhea, loose stools and incontinence since April of this year. This started after treatment with Augmentin for urinary tract infection. Her last colonoscopy was around 5 years ago when she was living in [place]. She has history of polyps and family history of colon cancer in her sister. I scheduled this evaluation to assess for inflammatory or infectious conditions and to survey because of her history and family history of neoplasia. Procedure: With the patient on her left lateral decubitus position and after informed consent and adequate sedation, the perianal area was inspected and it did not show any fissures or fistulas. There were no masses felt on digital rectal examination. The Olympus CFQ 160L video colonoscope was then inserted in the rectum in the usual fashion and advanced to the cecum. Unfortunately, the preparation was less than ideal with thick fecal secretions and fecal debris covering various areas. The underlying mucosa appeared healthy with no edema, erythema, friability, ulceration, exudation or spontaneous bleeding. I did not see any obvious diverticular disease or any obvious polyps or tumors. The patient tolerated the procedure well. Plan: The patient was reassured. Will continue symptomatic treatment and dietary management. It is unlikely, based on this evaluation today, that we are dealing with infections, inflammation or neoplasia. I will keep you updated on her progress. With her history I am recommending repeat exam in 5 years.
[2018-07-30 08:58] VITALS: BP 107/66; PULSE 71; RESP 18
== END 2018-07-30 09:45 | disposition home or self-care (01) ==
LOC: ORWHC2ENDO 06:49
DX: K59.00 Constipation, unspecified (principal); K52.89 Other specified noninfective gastroenteritis and colitis; Z86.010 Personal history of colon polyps; K21.9 Gastro-esophageal reflux disease without esophagitis; Z80.0 Family history of malignant neoplasm of digestive organs; I48.91 Unspecified atrial fibrillation; G47.33 Obstructive sleep apnea (adult) (pediatric); Z86.73 Personal history of transient ischemic attack (TIA), and cerebral infarction without residual deficits; E78.5 Hyperlipidemia, unspecified; E07.9 Disorder of thyroid, unspecified; Z79.01 Long term (current) use of anticoagulants; Z79.890 Hormone replacement therapy; Z79.899 Other long term (current) drug therapy; Z88.1 Allergy status to other antibiotic agents; Z88.2 Allergy status to sulfonamides; Z88.8 Allergy status to other drugs, medicaments and biological substances
CPT/HCPCS: 45378; J2001; J2704

== ENCOUNTER → 2018-11-03 | Outpatient (CLI) | payer MEDICARE ==
--- NOTE | 2018-11-06 07:35 | MM ---
Reason for exam: screening (asymptomatic). Last mammogram was performed 1 year ago. History: Patient is postmenopausal. Family history of breast cancer in mother at age 68, breast cancer in maternal aunt at age 60, and breast cancer in paternal grandmother at age 80. Excisional biopsy of the right breast, 1982. Physical Findings: A clinical breast exam by your physician is recommended on an annual basis and results should be correlated with mammographic findings. MG 3D Screening Mammo W/Cad Bilateral CC and MLO view(s) were taken. Prior study comparison: October 24, 2017, bilateral MG 3d screening mammo w/cad. July 16, 2016, mammogram, performed at [place]. Focal asymmetries. No significant changes when compared with prior studies. ASSESSMENT: Benign, BI-RAD 2 RECOMMENDATION: Routine screening mammogram of both breasts in 1 year.
== END | disposition home or self-care (01) ==
LOC: RADMAMWWP 13:23
PROVIDERS: ATTEND Family Medicine
DX: Z12.31 Encounter for screening mammogram for malignant neoplasm of breast (principal)
CPT/HCPCS: 77063; 77067

== ENCOUNTER → 2019-11-23 | Outpatient (CLI) | payer MEDICARE ==
--- NOTE | 2019-11-25 14:19 | MM ---
Reason for exam: screening (asymptomatic). Last mammogram was performed 1 year and 1 month ago. History: Patient is postmenopausal. Family history of breast cancer in mother at age 68, breast cancer in maternal aunt at age 60, and breast cancer in paternal grandmother at age 80. Excisional biopsy of the right breast, 1982. Physical Findings: A clinical breast exam by your physician is recommended on an annual basis and results should be correlated with mammographic findings. MG 3D Screening Mammo W/Cad Bilateral CC and MLO view(s) were taken. Prior study comparison: November 03, 2018, bilateral MG 3d screening mammo w/cad. October 24, 2017, bilateral MG 3d screening mammo w/cad. There are scattered fibroglandular densities. No significant changes when compared with prior studies. ASSESSMENT: Negative, BI-RAD 1 RECOMMENDATION: Routine screening mammogram of both breasts in 1 year. Manage on a clinical basis with regard to left breast pain.
== END | disposition home or self-care (01) ==
LOC: RADMAMWWP 10:07
PROVIDERS: ATTEND Family Medicine
DX: Z12.31 Encounter for screening mammogram for malignant neoplasm of breast (principal)
CPT/HCPCS: 77063; 77067

== ENCOUNTER 2019-11-24 10:02 | Emergency (ER) | payer MEDICARE ==
--- NOTE | 2019-11-24 10:21 | ED ---
Abdominal Pain HPI - General Chief Complaint: Abdominal Pain Stated Complaint: right flank pain Time Seen by Provider: 11/24/19 10:20 Source: patient, RN notes reviewed, old records reviewed Mode of arrival: ambulatory Limitations: no limitations - History of Present Illness Initial Comments: This is a 74-year-old female here for evaluation patient is safe for evaluation of abdominal pain. History of multiple abdominal surgeries with a ventricular with pain for about a month weight loss episodic appetite changes. Maybe some occasional decreased appetite with nausea. No diarrhea no fevers. MD Complaint: abdominal pain -: days(s) Location: RUQ, epigastric, R flank Radiation: RUQ Migration to: epigastric Severity: moderate Severity scale (1-10): 6 Quality: stabbing, aching Consistency: intermittent Improves With: nothing Worsens With: nothing Associated Symptoms: nausea - Related Data Home Medications Medication Instructions Recorded Confirmed DULoxetine HCL [Cymbalta] 120 mg PO DAILY 10/14/17 07/30/18 Carvedilol [Coreg] 12.5 mg PO BID 11/20/17 07/30/18 Apixaban [Eliquis] 5 mg PO BID 12/01/17 07/28/18 Cholecalciferol [Vitamin D3] 5,000 unit PO DAILY 07/28/18 07/30/18 Cyanocobalamin (Vitamin B-12) 500 mcg PO DAILY 07/28/18 07/30/18 [Vitamin B-12] Flecainide Acetate [Tambocor] 100 mg PO Q12HR 07/28/18 07/30/18 Levothyroxine Sodium [Synthroid] 100 mcg PO DAILY 07/28/18 07/30/18 Magnesium 120 mg PO DAILY 07/28/18 07/30/18 QUEtiapine [SEROquel] 100 mg PO HS 07/28/18 07/30/18 Secukinumab [Cosentyx Pen] 300 mg SQ Q30D 07/28/18 07/28/18 Vitamin B Complex 1 each PO DAILY 07/28/18 07/30/18 Allergies Allergy/AdvReac Type Severity Reaction Status Date / Time ciprofloxacin [From Cipro] Allergy Rash/Hives Verified 11/24/19 10:16 estradiol Allergy Rash/Hives Verified 11/24/19 10:16 Sulfa (Sulfonamide Allergy Rash/Hives Verified 11/24/19 10:16 Antibiotics) Review of Systems ROS Statement: Those systems with pertinent positive or pertinent negative responses have been documented in the HPI. ROS Other: All systems not noted in ROS Statement are negative. Past Medical History Past Medical History: Atrial Fibrillation, CVA/TIA, GERD/Reflux, Hyperlipidemia, Osteoarthritis (OA), Skin Disorder, Sleep Apnea/CPAP/BIPAP, Thyroid Disorder Additional Past Medical History / Comment(s): TIA (2014), Psoriatic Arthritis., hypothyroid, hx of GERD & hiatal hernia with surgery., chronic constipation, current diarrhea. History of Any Multi-Drug Resistant Organisms: None Reported Past Surgical History: Appendectomy, Cholecystectomy, Hysterectomy, Joint Replacement, Orthopedic Surgery Additional Past Surgical History / Comment(s): Lap Mario Fundoplication (02/2018), EGDs/colonoscopy, total R knee arthroplasty, R shoulder rotator cuff repair, R foot fractured and had 2 surgeries to repair, surgery for ruptured ovarian cyst. Past Anesthesia/Blood Transfusion Reactions: No Reported Reaction Past Psychological History: Anxiety, Depression Smoking Status: Never smoker Past Alcohol Use History: Occasional Past Drug Use History: None Reported - Past Family History Mother Family Medical History: Cancer Additional Family Medical History / Comment(s): MOTHER HAD BREAST CANCER. Father Family Medical History: Cancer Additional Family Medical History / Comment(s): FATHER HAD MELANOMA Sister(s) Family Medical History: Cancer Additional Family Medical History / Comment(s): PANCREATIC CANCER General Exam Limitations: no limitations General appearance: alert, in no apparent distress Head exam: Present: atraumatic, normocephalic, normal inspection Eye exam: Present: normal appearance, PERRL, EOMI. Absent: scleral icterus, conjunctival injection, periorbital swelling ENT exam: Present: normal exam, mucous membranes moist Neck exam: Present: normal inspection. Absent: tenderness, meningismus, lymphadenopathy Respiratory exam: Present: normal lung sounds bilaterally. Absent: respiratory distress, wheezes, rales, rhonchi, stridor Cardiovascular Exam: Present: regular rate, normal rhythm, normal heart sounds. Absent: systolic murmur, diastolic murmur, rubs, gallop, clicks GI/Abdominal exam: Present: soft, normal bowel sounds. Absent: distended, tenderness, guarding, rebound, rigid Extremities exam: Present: normal inspection, full ROM, normal capillary refill. Absent: tenderness, pedal edema, joint swelling, calf tenderness Back exam: Present: normal inspection Neurological exam: Present: alert, oriented X3, CN II-XII intact Psychiatric exam: Present: normal affect, normal mood Skin exam: Present: warm, dry, intact, normal color. Absent: rash Course Vital Signs 11/24/19 10:14 Temperature 97.9 F Pulse Rate 80 Respiratory 18 Rate Blood Pressure 112/72 O2 Sat by Pulse 95 Oximetry Medical Decision Making - Lab Data Result diagrams: 11/24/19 10:30 11/24/19 10:30 Lab Results 11/24/19 11/24/19 11/24/19 Range/Units 10:30 10:30 10:30 WBC 8.1 (3.8-10.6) k/uL RBC 4.48 (3.80-5.40) m/uL Hgb 13.4 (11.4-16.0) gm/dL Hct 40.2 (34.0-46.0) % MCV 89.8 (80.0-100.0) fL MCH 30.0 (25.0-35.0) pg MCHC 33.4 (31.0-37.0) g/dL RDW 14.6 (11.5-15.5) % Plt Count 275 (150-450) k/uL Neutrophils % 75 % Lymphocytes % 16 % Monocytes % 5 % Eosinophils % 2 % Basophils % 1 % Neutrophils # 6.1 (1.3-7.7) k/uL Lymphocytes # 1.3 (1.0-4.8) k/uL Monocytes # 0.4 (0-1.0) k/uL Eosinophils # 0.2 (0-0.7) k/uL Basophils # 0.1 (0-0.2) k/uL PT 9.7 (9.0-12.0) sec INR 0.9 (<1.2) APTT 24.2 (22.0-30.0) sec Sodium 139 (137-145) mmol/L Potassium 4.7 (3.5-5.1) mmol/L Chloride 106 (98-107) mmol/L Carbon Dioxide 22 (22-30) mmol/L Anion Gap 11 mmol/L BUN 15 (7-17) mg/dL Creatinine 0.90 (0.52-1.04) mg/dL Est GFR (CKD-EPI)AfAm 74 (>60 ml/min/1.73 sqM) Est GFR (CKD-EPI)NonAf 64 (>60 ml/min/1.73 sqM) Glucose 100 H (74-99) mg/dL Plasma Lactic Acid Rodrigo (0.7-2.0) mmol/L Calcium 9.6 (8.4-10.2) mg/dL Total Bilirubin 0.8 (0.2-1.3) mg/dL AST 26 (14-36) U/L ALT 16 (4-34) U/L Alkaline Phosphatase 140 H (38-126) U/L Creatine Kinase 32 (30-135) U/L Total Protein 7.0 (6.3-8.2) g/dL Albumin 4.0 (3.5-5.0) g/dL Amylase 61 (30-110) U/L Lipase 113 (23-300) U/L Urine Color Urine Appearance (Clear) Urine pH (5.0-8.0) Ur Specific [place] (1.001-1.035) Urine Protein (Negative) Urine Glucose (UA) (Negative) Urine Ketones (Negative) Urine Blood (Negative) Urine Nitrite (Negative) Urine Bilirubin (Negative) Urine Urobilinogen (<2.0) mg/dL Ur Leukocyte Esterase (Negative) Urine RBC (0-5) /hpf Urine WBC (0-5) /hpf Ur Squamous Epith Cells (0-4) /hpf Urine Bacteria (None) /hpf Hyaline Casts (0-2) /lpf Urine Mucus (None) /hpf 11/24/19 11/24/19 Range/Units 10:40 11:25 WBC (3.8-10.6) k/uL RBC (3.80-5.40) m/uL Hgb (11.4-16.0) gm/dL Hct (34.0-46.0) % MCV (80.0-100.0) fL MCH (25.0-35.0) pg MCHC (31.0-37.0) g/dL RDW (11.5-15.5) % Plt Count (150-450) k/uL Neutrophils % % Lymphocytes % % Monocytes % % Eosinophils % % Basophils % % Neutrophils # (1.3-7.7) k/uL Lymphocytes # (1.0-4.8) k/uL Monocytes # (0-1.0) k/uL Eosinophils # (0-0.7) k/uL Basophils # (0-0.2) k/uL PT (9.0-12.0) sec INR (<1.2) APTT (22.0-30.0) sec Sodium (137-145) mmol/L Potassium (3.5-5.1) mmol/L Chloride (98-107) mmol/L Carbon Dioxide (22-30) mmol/L Anion Gap mmol/L BUN (7-17) mg/dL Creatinine (0.52-1.04) mg/dL Est GFR (CKD-EPI)AfAm (>60 ml/min/1.73 sqM) Est GFR (CKD-EPI)NonAf (>60 ml/min/1.73 sqM) Glucose (74-99) mg/dL Plasma Lactic Acid Rodrigo 1.2 (0.7-2.0) mmol/L Calcium (8.4-10.2) mg/dL Total Bilirubin (0.2-1.3) mg/dL AST (14-36) U/L ALT (4-34) U/L Alkaline Phosphatase (38-126) U/L Creatine Kinase (30-135) U/L Total Protein (6.3-8.2) g/dL Albumin (3.5-5.0) g/dL Amylase (30-110) U/L Lipase (23-300) U/L Urine Color Yellow Urine Appearance Cloudy H (Clear) Urine pH 6.0 (5.0-8.0) Ur Specific [place] 1.014 (1.001-1.035) Urine Protein 1+ H (Negative) Urine Glucose (UA) Negative (Negative) Urine Ketones Negative (Negative) Urine Blood Negative (Negative) Urine Nitrite Negative (Negative) Urine Bilirubin Negative (Negative) Urine Urobilinogen <2.0 (<2.0) mg/dL Ur Leukocyte Esterase Large H (Negative) Urine RBC 4 (0-5) /hpf Urine WBC >182 H (0-5) /hpf Ur Squamous Epith Cells 4 (0-4) /hpf Urine Bacteria Occasional H (None) /hpf Hyaline Casts 3 H (0-2) /lpf Urine Mucus Rare H (None) /hpf Disposition Clinical Impression: Abdominal colic, Abdominal pain Disposition: HOME SELF-CARE Condition: Good Instructions (If sedation given, give patient instructions): Abdominal Pain (ED) Is patient prescribed a controlled substance at d/c from ED?: No Referrals: Choco Cruz MD [STAFF PHYSICIAN] - 1-2 days
[2019-11-24] MEDS ORDERED: MORPHINE SULFATE 4 MG/ML SYRINGE IV STA (10:22)
[2019-11-24] MEDS ORDERED: PANTOPRAZOLE 40 MG/10 ML VIAL IVP STA (10:22)
[2019-11-24] MEDS ORDERED: ONDANSETRON 4 MG/2 ML VIAL IVP STA (10:22)
[2019-11-24] MEDS ORDERED: SODIUM CHLORIDE 0.9% 1,000 ML IV STA (10:22)
[2019-11-24 11:25] LABS: Basophils # (A) 0.1 k/uL (0-0.2); Basophils % (A) 1 %; Calcium 9.6 mg/dL (8.4-10.2); Eosinophils # (A) 0.2 k/uL (0-0.7); Eosinophils % (A) 2 %; HCT 40.2 % (34.0-46.0); HGB 13.4 gm/dL (11.4-16.0); Lymphocytes # (A) 1.3 k/uL (1.0-4.8); Lymphocytes % (A) 16 %; MCHC 33.4 g/dL (31.0-37.0); MCV 89.8 fL (80.0-100.0); Mean Platelet Volume 7.1; Monocytes # (A) 0.4 k/uL (0-1.0); Monocytes % (A) 5 %; Neutrophils # (A) 6.1 k/uL (1.3-7.7); Neutrophils % (A) 75 %; Platelet Count 275 k/uL (150-450); RBC 4.48 m/uL (3.80-5.40); RDW 14.6 % (11.5-15.5); Total Bilirubin 0.8 mg/dL (0.2-1.3); WBC 8.1 k/uL (3.8-10.6)
[2019-11-24 11:31] LABS: INR 0.9 (<1.2); Partial Thromboplastin Time 24.2 sec (22.0-30.0); Prothrombin Time 9.7 sec (9.0-12.0)
[2019-11-24 11:34] LABS: Potassium 4.7 mmol/L (3.5-5.1)
[2019-11-24 11:38] LABS: Appearance,Urine Cloudy (Clear); Bacteria,Urine Occasional /hpf; Bilirubin,Urine Negative (Negative); Blood,Urine Negative (Negative); Color,Urine Yellow; Glucose,Urine (UA) Negative (Negative); Hyaline Casts,Urine 3 /lpf (0-2); Ketones,Urine Negative (Negative); Leukocyte Esterase,Urine Large (Negative); Mucus,Urine Rare /hpf; Nitrite,Urine Negative (Negative); Protein,Urine 1+ (Negative); RBC,Urine 4 /hpf (0-5); Specific Gravity,Urine 1.014 (1.001-1.035); Squamous Epithelial Cell,Urine 4 /hpf (0-4); Urobilinogen,Urine <2.0 mg/dL (<2.0); WBC,Urine >182 /hpf (0-5)
--- NOTE | 2019-11-24 13:25 | CT ---
EXAMINATION TYPE: CT abdomen pelvis w con DATE OF EXAM: 11/24/2019 HISTORY: RUQ pain to 3 weeks. History of appendectomy, hysterectomy, Mario fundoplication, and melvin cystectomy. CT DLP: 1503.8mGycm Automated Exposure Control for Dose Reduction was Utilized. CONTRAST: CT scan of the abdomen and pelvis is performed with IV Contrast, patient injected with 100 mL of Isov ue 300. COMPARISON: None. FINDINGS: LUNG BASES: No significant abnormality is appreciated. LIVER/GB: Hepatic parenchyma is diffusely hypoattenuated in comparison to that of the spleen, most co mmonly seen in hepatic steatosis. This finding limits evaluation for hepatic masses. Nonspecific 9 mm hepatic lesion is seen near the dome of diaphragm on image 15. This has average Hounsfield unit of 3 9.Additional more ill-defined hepatic lesion is seen in the subcapsular right hepatic lobe on image 2 8 measuring 7 mm. This is too small to accurately characterize. Gallbladder is surgically absent. PANCREAS: There is pancreatic parenchymal atrophy. SPLEEN: No significant abnormality is seen. ADRENALS: No significant abnormality is seen. KIDNEYS: Kidneys enhance and excrete symmetrically other than very punctate right cortical hypoattenu ated lesions, possible cysts. Haziness around the urinary bladder wall. This could relate to incomple te distention or cystitis. BOWEL: Postsurgical changes of a prior Mario fundoplication. Stomach is decompressed and therefore s uboptimally evaluated. There is mild narrowing of the ascending colon and cecum junction on axial luda ge 64 and coronal image 47. This could relate to colonic spasm or neoplasm and direct visualization w ith colonoscopy is recommended. No dilated large or small bowel. Mild degree colonic fecal stasis. UTERUS/ADNEXA: Uterus is surgically absent LYMPH NODES: No greater than 1cm abdominal or pelvic lymph nodes are appreciated. OSSEOUS STRUCTURES: Grade 1 anterolisthesis of L4 on L5. Mild degenerative changes of the spine. IMPRESSION: 1. Correlation with urinalysis is recommended to exclude cystitis as there is haziness surrounding th e urinary bladder wall diffusely. 2. Mild narrowing of the ascending colon/cecal junction. This could relate to colonic spasm or neopla sm. Direct visualization with colonoscopy is recommended. 3. There are 2 hepatic lesions that are subcentimeter and too small to accurately characterize on a b ackground of mild degree hepatic steatosis.
[2019-11-24 14:26] VITALS: BP 124/67; PULSE 76; RESP 16; TEMP 98.6
== END 2019-11-24 14:30 | disposition home or self-care (01) ==
LOC: EC 10:02
DX: R10.84 Generalized abdominal pain (principal); R11.0 Nausea; I48.91 Unspecified atrial fibrillation; E07.9 Disorder of thyroid, unspecified; E03.9 Hypothyroidism, unspecified; G47.30 Sleep apnea, unspecified; M19.90 Unspecified osteoarthritis, unspecified site; F41.9 Anxiety disorder, unspecified; F32.9 Major depressive disorder, single episode, unspecified; Z79.01 Long term (current) use of anticoagulants; Z79.02 Long term (current) use of antithrombotics/antiplatelets; Z79.890 Hormone replacement therapy; Z79.899 Other long term (current) drug therapy; Z88.1 Allergy status to other antibiotic agents; Z88.2 Allergy status to sulfonamides; Z88.8 Allergy status to other drugs, medicaments and biological substances; Z90.49 Acquired absence of other specified parts of digestive tract; Z90.710 Acquired absence of both cervix and uterus; Z99.89 Dependence on other enabling machines and devices; Z86.73 Personal history of transient ischemic attack (TIA), and cerebral infarction without residual deficits; Z96.651 Presence of right artificial knee joint
CPT/HCPCS: 36415; 80053; 82150; 82550; 83605; 83690; 85025; 85610; 85730; 81001; 87086; 74177; 99284; 96374; 96375 ×2; 96361; J2270; J2405; C9113; Q9967

== ENCOUNTER → 2019-11-26 | Outpatient (CLI) | payer MEDICARE ==
--- NOTE | 2019-11-26 12:12 | US ---
EXAMINATION TYPE: US abdomen complete DATE OF EXAM: 11/26/2019 COMPARISON: CT 11/24/2019 CLINICAL HISTORY: 74-year-old female R10.11 RT UPPER QUADRANT PAIN. TECHNIQUE: Multiple sonographic images of the abdomen are obtained. FINDINGS: EXAM MEASUREMENTS: Liver Length: 14.7 cm Gallbladder: Surgically absent CBD: 0.7 cm Spleen: 10.9 cm Right Kidney: 8.4 x 3.8 x 4.8 cm Left Kidney: 9.8 x 5.1 x 5.1 cm Levers Lace Machine Operator notes: Technically difficult due to midline bowel gas. Pancreas: Obscured by bowel gas Liver: small cyst near dome measures 0.8 x 1.0 x 1.0 cm. Slight increased echogenicity of the liver may be on a technical basis. Gallbladder: Surgically absent CBD: wnl, given postcholecystectomy status. Spleen: wnl Right Kidney: No hydronephrosis. Left Kidney: No hydronephrosis. Bilateral renal cortical thinning suggests underlying chronic medical renal disease. Upper IVC: wnl Abd Aorta: visualized portions wnl IMPRESSION: 1. Exam limitations due to midline bowel gas. 2. Slight increase echogenicity of the liver may be on a technical basis or could reflect mild fatty infiltration. 3. Mildly dilated bile duct at 7 mm, within acceptable limits given postcholecystectomy status. 4. Suspect chronic medical renal disease.
== END | disposition home or self-care (01) ==
LOC: RADUSWWP 10:05
PROVIDERS: ATTEND Family Medicine
DX: K83.8 Other specified diseases of biliary tract (principal)
CPT/HCPCS: 76700

== ENCOUNTER 2020-03-31 10:52 | Emergency (ER) | payer MEDICARE ==
[2020-03-31 10:59] VITALS: BP 107/68; PULSE 84; RESP 18; TEMP 97.8
[2020-03-31] MEDS ORDERED: KETOROLAC 60 MG/2 ML VIAL IM STA (12:00)
[2020-03-31] MEDS ORDERED: methylPREDNISolone SOD SUCCI 125 MG/2 ML VIAL IM ONE (12:00)
--- NOTE | 2020-03-31 12:11 | ED ---
General Adult HPI - General Chief complaint: Back Pain/Injury Stated complaint: L hip pain Time Seen by Provider: 03/31/20 10:55 Source: patient, RN notes reviewed, old records reviewed Mode of arrival: ambulatory Limitations: no limitations - History of Present Illness Initial comments: This is a 75-year-old female who presents emergency Department stating that she has chronic left hip and buttock pain. Patient states the last 5 days that pain is gotten considerably worse and it radiates down her leg. Patient states she's been diagnosed with psoriatic arthritis. Patient states she's on a immunologic and occasionally she'll need a burst of steroids. Patient states the pain is never been quite this bad. Patient denies any numbness or weakness. Patient states it just hurts to bend her leg. Patient denies any recent injury or trauma. - Related Data Home Medications Medication Instructions Recorded Confirmed DULoxetine HCL [Cymbalta] 120 mg PO DAILY 10/14/17 07/30/18 Carvedilol [Coreg] 12.5 mg PO BID 11/20/17 07/30/18 Apixaban [Eliquis] 5 mg PO BID 12/01/17 07/28/18 Cholecalciferol [Vitamin D3] 5,000 unit PO DAILY 07/28/18 07/30/18 Cyanocobalamin (Vitamin B-12) 500 mcg PO DAILY 07/28/18 07/30/18 [Vitamin B-12] Flecainide Acetate [Tambocor] 100 mg PO Q12HR 07/28/18 07/30/18 Levothyroxine Sodium [Synthroid] 100 mcg PO DAILY 07/28/18 07/30/18 Magnesium 120 mg PO DAILY 07/28/18 07/30/18 QUEtiapine [SEROquel] 100 mg PO HS 07/28/18 07/30/18 Secukinumab [Cosentyx Pen] 300 mg SQ Q30D 07/28/18 07/28/18 Vitamin B Complex 1 each PO DAILY 07/28/18 07/30/18 Allergies Allergy/AdvReac Type Severity Reaction Status Date / Time ciprofloxacin [From Cipro] Allergy Rash/Hives Verified 11/24/19 10:16 estradiol Allergy Rash/Hives Verified 11/24/19 10:16 Sulfa (Sulfonamide Allergy Rash/Hives Verified 11/24/19 10:16 Antibiotics) Review of Systems ROS Statement: Those systems with pertinent positive or pertinent negative responses have been documented in the HPI. ROS Other: All systems not noted in ROS Statement are negative. Past Medical History Past Medical History: Atrial Fibrillation, CVA/TIA, GERD/Reflux, Hyperlipidemia, Osteoarthritis (OA), Skin Disorder, Sleep Apnea/CPAP/BIPAP, Thyroid Disorder Additional Past Medical History / Comment(s): TIA (2014), Psoriatic Arthritis., hypothyroid, hx of GERD & hiatal hernia with surgery., chronic constipation, current diarrhea. History of Any Multi-Drug Resistant Organisms: None Reported Past Surgical History: Appendectomy, Cholecystectomy, Hysterectomy, Joint Replacement, Orthopedic Surgery Additional Past Surgical History / Comment(s): Lap Mario Fundoplication (2017), EGDs/colonoscopy, total R knee arthroplasty, R shoulder rotator cuff repair, R foot fractured and had 2 surgeries to repair, surgery for ruptured ovarian cyst. Past Anesthesia/Blood Transfusion Reactions: No Reported Reaction Past Psychological History: Anxiety, Depression Smoking Status: Never smoker Past Alcohol Use History: Occasional Past Drug Use History: None Reported - Past Family History Mother Family Medical History: Cancer Additional Family Medical History / Comment(s): MOTHER HAD BREAST CANCER. Father Family Medical History: Cancer Additional Family Medical History / Comment(s): FATHER HAD MELANOMA Sister(s) Family Medical History: Cancer Additional Family Medical History / Comment(s): PANCREATIC CANCER General Exam - General Exam Comments Initial Comments: GENERAL Patient is well-developed and well-nourished. Patient is in mild distress. EYES Patient's pupils are equal and round. Extraocular motion is intact SKIN Unremarkable NEURO The patient is alert and oriented 3. Patient full range of motion though it did hurt to flex at the hip. Patient had no numbness. PYSCH Patient has normal interpersonal interactions. MUSCULOSKELETAL Patient's straight leg test is negative bilaterally. Palpating the sacroiliac joint was very tender to the patient. Limitations: no limitations Course Vital Signs 03/31/20 10:54 Temperature 97.8 F Pulse Rate 84 Respiratory 18 Rate Blood Pressure 107/68 O2 Sat by Pulse 96 Oximetry Medical Decision Making - Medical Decision Making I ordered the patient medication and an x-ray and after that the patient next door to her was loud and obnoxious and she decided that she could not stand sitting eliciting too many longer she got up and walked out and walked out quite steadily. Disposition Clinical Impression: Buttock pain Disposition: Left Against Medical Advice Referrals: Papi Singh DO [Primary Care Provider] - 1-2 days Time of Disposition: 12:11
== END 2020-03-31 12:05 | disposition left against medical advice (07) ==
LOC: EC 10:52
DX: M79.18 Myalgia, other site (principal); I48.91 Unspecified atrial fibrillation; E03.9 Hypothyroidism, unspecified; G47.30 Sleep apnea, unspecified; M19.90 Unspecified osteoarthritis, unspecified site; F41.9 Anxiety disorder, unspecified; F32.9 Major depressive disorder, single episode, unspecified; Z79.01 Long term (current) use of anticoagulants; Z79.02 Long term (current) use of antithrombotics/antiplatelets; Z79.890 Hormone replacement therapy; Z79.899 Other long term (current) drug therapy; Z88.1 Allergy status to other antibiotic agents; Z88.2 Allergy status to sulfonamides; Z88.8 Allergy status to other drugs, medicaments and biological substances; Z86.73 Personal history of transient ischemic attack (TIA), and cerebral infarction without residual deficits; Z96.651 Presence of right artificial knee joint; Z99.89 Dependence on other enabling machines and devices; Z53.29 Procedure and treatment not carried out because of patient's decision for other reasons
CPT/HCPCS: 99283

== ENCOUNTER → 2020-07-19 | Outpatient (CLI) | payer MEDICARE ==
--- NOTE | 2020-07-19 20:34 | US ---
EXAMINATION TYPE: US venous doppler duplex LE LT DATE OF EXAM: 07/19/2020 9:47 AM COMPARISON: NONE CLINICAL HISTORY: I80.9 Phlebitis and thrombophlebitis of unspecifie. Lt calf pain x 1 week. Hx of Ba kers cyst. Pt on eliquis. SIDE PERFORMED: Left TECHNIQUE: The lower extremity deep venous system is examined utilizing real time linear array sonog linda with graded compression, doppler sonography and color-flow sonography. VESSELS IMAGED: External Iliac Vein (EIV) Common Femoral Vein Deep Femoral Vein Greater Saphenous Vein * Femoral Vein Popliteal Vein Small Saphenous Vein * Proximal Calf Veins (* superficial vessels) Left Leg: Negative for DVT IMPRESSION: 1. Left lower extremity ultrasound negative for deep venous thrombosis.
== END | disposition home or self-care (01) ==
LOC: RADUSWWP 09:04
PROVIDERS: ATTEND Orthopaedic Surgery Sports Medicine
DX: I82.402 Acute embolism and thrombosis of unspecified deep veins of left lower extremity (principal); M79.662 Pain in left lower leg

== ENCOUNTER → 2020-08-10 | Outpatient (CLI) | payer MEDICARE ==
[2020-08-10 11:49] LABS: Appearance,Urine Cloudy (Clear); Bacteria,Urine Many /hpf; Bilirubin,Urine Negative (Negative); Blood,Urine Negative (Negative); Color,Urine Yellow; Glucose,Urine (UA) Negative (Negative); Hyaline Casts,Urine 1 /lpf (0-2); Ketones,Urine Negative (Negative); Leukocyte Esterase,Urine Large (Negative); Mucus,Urine Rare /hpf; Nitrite,Urine Positive (Negative); PH, Urine 5.5 (5.0-8.0); Protein,Urine Negative (Negative); RBC,Urine 3 /hpf (0-5); Specific Gravity,Urine 1.015 (1.001-1.035); Squamous Epithelial Cell,Urine 1 /hpf (0-4); Urobilinogen,Urine <2.0 mg/dL (<2.0); WBC,Urine 120 /hpf (0-5)
[2020-08-10 12:29] LABS: Albumin 3.8 g/dL (3.5-5.0); Calcium 9.1 mg/dL (8.4-10.2); Potassium 4.3 mmol/L (3.5-5.1); Total Bilirubin 0.4 mg/dL (0.2-1.3); Total Protein 6.4 g/dL (6.3-8.2)
[2020-08-10 12:35] LABS: HCT 38.4 % (34.0-46.0); HGB 12.1 gm/dL (11.4-16.0); MCH 28.4 pg (25.0-35.0); MCHC 31.5 g/dL (31.0-37.0); Mean Platelet Volume 6.7; Platelet Count 299 k/uL (150-450); RBC 4.26 m/uL (3.80-5.40); RDW 15.4 % (11.5-15.5); WBC 11.7 k/uL (3.8-10.6)
[2020-08-10 12:40] LABS: INR 0.9 (<1.2); Partial Thromboplastin Time 22.4 sec (22.0-30.0); Prothrombin Time 9.4 sec (9.0-12.0)
== END | disposition home or self-care (01) ==
LOC: LABPAT 10:36
PROVIDERS: ATTEND Orthopaedic Surgery Sports Medicine
DX: Z01.818 Encounter for other preprocedural examination (principal); Z01.812 Encounter for preprocedural laboratory examination; Z51.81 Encounter for therapeutic drug level monitoring; Z79.01 Long term (current) use of anticoagulants
CPT/HCPCS: 80053; 81001; 85027; 85610; 85730; 87070; 93005

== ENCOUNTER 2020-08-24 09:41 | Inpatient (IN) | payer MEDICARE ==
[2020-08-22 16:10] VITALS: BMI 30.1
[~2020-08-24 09:41] MED LIST changes: +ACETAMINOPHEN TAB 325 MG TAB PO PRN; +ACETAMINOPHEN TAB 500 MG TAB PO ONE; +DEXAMETHASONE SOD PHOSPHATE 10 MG/ML 1 ML VIAL IV ONE; +GABAPENTIN 300 MG CAP PO ONE; +HYDROcodone/APAP 5-325MG 1 EACH TAB PO PRN; +HYDROmorphone 0.5 MG/0.5 ML SYRINGE IVP PRN; -LACTATED RINGERS 1,000 ML IV SCH; +MAGNESIUM HYDROXIDE 2,400 MG/10 ML CUP PO PRN; +MELOXICAM 7.5 MG TAB PO ONE; +MIDAZOLAM 2 MG/2 ML VIAL IV PRN; +NA PHOS,M-B/NA PHOS,DI-BA 133 ML ENEMA RECTAL PRN; +NALOXONE 0.4 MG/ML 1 ML VIAL IV PRN; +ONDANSETRON 4 MG/2 ML VIAL IVP ONE; +ONDANSETRON 4 MG/2 ML VIAL IVP PRN; +TEMAZEPAM 15 MG CAP PO PRN; +TRANEXAMIC ACID 1,000 MG in SODIUM CHLORIDE 0.9% 100 ML IVPB ONE; +bisacodyL 10 MG SUPP RECTAL PRN; +diazePAM 5 MG TAB PO PRN; +hydrOXYzine pamoate 25 MG CAP PO PRN; +traMADol 50 MG TAB PO PRN
[2020-08-24] MEDS: LACTATED RINGERS 1,000 ML IV SCH ×3 (10:43→21:28)
[2020-08-24] MEDS ORDERED: LIDOCAINE 1% (10MG/ML) FOR IV START INTRADERMA ONE (10:43)
[2020-08-24] MEDS ORDERED: SODIUM CHLORIDE 0.9% 100 ML BAG ONE (11:28)
[2020-08-24] MEDS ORDERED: MIDAZOLAM 2 MG/2 ML VIAL ONE (11:28)
[2020-08-24] MEDS ORDERED: fentaNYL (PF) 50 MCG/ML 2 ML AMP ONE (11:28)
[2020-08-24] MEDS ORDERED: PROPOFOL 10 MG/ML 20 ML VIAL IV ONE (11:28)
[2020-08-24] MEDS ORDERED: TRANEXAMIC ACID 1,000 MG/10 ML VIAL ONE (11:28)
[2020-08-24] MEDS: ROPIVACAINE 246.25 MG, EPINEPHrine 0.5 MG, KETOROLAC 30 MG, cloNIDine HCL/PF 80 MCG, WA... MISCELLANE ONE ×10 (12:00→12:35)
[2020-08-24] MEDS ORDERED: ceFAZolin 3,000 MG in SODIUM CHLORIDE 0.9% IRRIGATIO 3,000 ML IRRIGATION ONE (12:01)
[2020-08-24] MEDS ORDERED: ROPIVACAINE 0.2%-NS ON-Q PUMP 1,090 MG, EMPTY PAIN BALL 1 EACH MISCELLANE PRN (12:01)
--- NOTE | 2020-08-24 12:03 | P.ANPRN ---
Procedure Note - Anesthesia - Nerve Block Performed Left Adductor Canal Infusion Time Out Performed: Yes Date of Procedure: 08/24/20 Procedure Start Time: 10:59 Procedure Stop Time: 11:14 Location of Patient: PreOp Indication: Acute Post-Operative Pain, Requested by Surgeon Sedation Type: Sedate with meaningful contact maintained Preparation: Sterile Prep, Sterile Dressing Position: Supine Catheter: Indwelling Needle Types: Matchup Needle Gauge: 18 Ultrasound used to visualize needle placement: Yes Ultrasound used to observe medication spread: Yes Injectate: 0.5% Ropivacaine (see comment for volume) (20 ml + decadron 4 mg) Blood Aspirated: No Pain Paresthesia on Injection Noted: No Resistance on Injection: Normal Image Stored and Saved: Yes Events: Uneventful and Well Tolerated
--- NOTE | 2020-08-24 13:37 | XR ---
EXAMINATION TYPE: XR knee limited LT DATE OF EXAM: 08/24/2020 COMPARISON: None HISTORY: Postop left knee replacement TECHNIQUE: 2 view left knee FINDINGS: Tibial and femoral components of in place. No acute fractures or dislocations are evident. Soft tissue postsurgical changes are noted. IMPRESSION: 1. No acute fracture post left knee replacement.
[2020-08-24] MEDS ORDERED: NON FORMULARY DRUG (Linaclotide [Linzess] 145 MCG Capsule) PO PRN (19:54)
[2020-08-24] MEDS: SENNOSIDES-DOCUSATE SODIUM 1 EACH TAB PO SCH (21:29)
[2020-08-24] MEDS: HYDROcodone/APAP 10-325MG 1 EACH TAB PO PRN (21:30)
[2020-08-24] MEDS: FLECAINIDE 50 MG TAB PO SCH (21:30)
--- NOTE | 2020-08-24 22:11 | P.CONS ---
History of Present Illness - Reason for Consult Consult date: 08/24/20 Medical management Requesting physician: Malachi Jennings - Chief Complaint Left knee surgery - History of Present Illness Consultation: Very pleasant 75-year-old patient of Dr. Singh. 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 Because of severe arthritis now patient been using a wheelchair. Patient today underwent surgery on the left knee. Postprocedure pain is controlled. No nausea vomiting. Did tolerate his supper. Laying in bed. Review of systems: GEN.: None EYES: None HEENT: None NECK: None RESPIRATORY: None CARDIOVASCULAR: None GASTROINTESTINAL: None GENITOURINARY: None MUSCULOSKELETAL: Joint pains LYMPHATICS: None HEMATOLOGICAL: None PSYCHIATRY: None NEUROLOGICAL: Unable to walk because of arthritis Past medical history to include: Atrial fibrillation, GERD, hyperlipidemia, osteoarthritis, psoriatic assess, obstructive sleep apnea, hypothyroid, GERD, hiatal hernia with surgery, chronic constipation, varicose veins, 2 x 2's contracture in the right middle finger, Shields's cyst on the left knee lap Mario fundoplication in 2018, anxiety depression Social history: No history of smoking. Alcohol rarely. . Physical examination: VITAL SIGNS: 98.4, 86, 16, 136 with 73, 96% on room air GENERAL: BMI 30.1, propped up in bed, awake comfortable. EYES: Pupils equal. Conjunctiva normal. HEENT: External appearance of nose and ears normal, oral cavity grossly normal. NECK: JVD not raised; masses not palpable. HEART: First and second heart sounds are normal; no edema. LUNGS: Respiratory rate normal; clear to auscultation. ABDOMEN: Soft, nontender, liver spleen not palpable, no masses palpable. PSYCH: Alert and oriented x3; mood and affect normal. MUSKO schedule: Evidence of OA, dressing over the left knee NEUROLOGICAL: Cranial nerves grossly intact; no facial asymmetry, power and sensation grossly intact. LYMPHATICS: No lymph nodes palpable in the axilla and neck INVESTIGATIONS, reviewed in the clinical context: White count 11.7 hemoglobin 12.1 potassium 4.3 creatinine 0.95-from August 10 EKG tracing personally reviewed by me-normal sinus rhythm Assessment: -Left total knee arthroplasty -Paroxysmal atrial fibrillation currently in sinus rhythm -GERD -Hyperlipidemia -Primary osteoarthritis -Hypothyroid -Psoriatic arthritis -Chronic constipation -Varicose veins -2 x 2's contracture right middle finger -Obesity BMI 30.1 Plan: Home medications to be continued. Patient's eliquis to be resumed when okay with Dr. Jennings. My recommendation is resume this tomorrow morning. Care was discussed with the patient question also. Thank you Dr. Jennings Past Medical History Past Medical History: Atrial Fibrillation, CVA/TIA, GERD/Reflux, Hyperlipidemia, Osteoarthritis (OA), Skin Disorder, Sleep Apnea/CPAP/BIPAP, Thyroid Disorder Additional Past Medical History / Comment(s): TIA (2014), Psoriatic Arthritis., hypothyroid, hx of GERD & hiatal hernia with surgery. chronic constipation. Psoriasis. No tx for sleep apnea. Varicose veins. Duprytren's contracture Rt middle finger. Recent UTI, on po AB Rx for 10 days. 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 History of Any Multi-Drug Resistant Organisms: None Reported Past Surgical History: Appendectomy, Cholecystectomy, Hysterectomy, Joint Replacement, Orthopedic Surgery Additional Past Surgical History / Comment(s): Lap Mario Fundoplication (02/2018), EGDs/colonoscopy, Total R knee arthroplasty, R shoulder rotator cuff repair, ORIF R foot fx x2 surgeries, surgery for ruptured ovarian cyst. Past Anesthesia/Blood Transfusion Reactions: No Reported Reaction Additional Past Anesthesia/Blood Transfusion Reaction / Comm: Prefers not to have spinal, "doesn't want to hear the noises" during surgery. Past Psychological History: Anxiety, Depression Additional Psychological History / Comment(s): No current prob or tx. Smoking Status: Never smoker Past Alcohol Use History: Rare Past Drug Use History: None Reported - Past Family History Mother Family Medical History: Cancer Additional Family Medical History / Comment(s): MOTHER HAD BREAST CANCER. Father Family Medical History: Cancer Additional Family Medical History / Comment(s): FATHER HAD MELANOMA Sister(s) Family Medical History: Cancer Additional Family Medical History / Comment(s): PANCREATIC CANCER. Another sister had bowel cancer. Medications and Allergies Home Medications Medication Instructions Recorded Confirmed Type DULoxetine HCL [Cymbalta] 120 mg PO DAILY 10/14/17 08/24/20 History Carvedilol [Coreg] 12.5 mg PO BID 11/20/17 08/24/20 History Apixaban [Eliquis] 5 mg PO BID 12/01/17 08/24/20 History Flecainide Acetate [Tambocor] 100 mg PO Q12HR 07/28/18 08/24/20 History Levothyroxine Sodium [Synthroid] 100 mcg PO DAILY 07/28/18 08/24/20 History Magnesium 120 mg PO DAILY 07/28/18 08/24/20 History Amoxicillin 500 mg PO Q8H 08/22/20 08/22/20 History HYDROcodone/APAP 5-325MG [Claxton 1 tab PO Q6HR PRN 08/22/20 08/24/20 History 5-325] Linaclotide [Linzess] 145 mcg PO DAILY PRN 08/22/20 08/22/20 History Risankizumab-Rzaa [Skyrizi (2 300 mg SQ Q120D 08/22/20 08/24/20 History Syringes) Kit] Zolpidem [Ambien] 10 mg PO HS 08/24/20 08/24/20 History Allergies Allergy/AdvReac Type Severity Reaction Status Date / Time ciprofloxacin [From Cipro] Allergy Rash/Hives Verified 08/24/20 10:38 estradiol Allergy Rash/Hives Verified 08/24/20 10:38 Sulfa (Sulfonamide Allergy Rash/Hives Verified 08/24/20 10:38 Antibiotics) Physical Exam Vitals: Vital Signs Temp Pulse Pulse Pulse Pulse Resp BP 08/24/20 19:02 97.9 F 94 16 157/80 08/24/20 17:13 98.4 F 86 136/73 08/24/20 16:00 90 16 164/75 08/24/20 15:30 95 16 178/82 08/24/20 15:00 90 16 154/75 08/24/20 14:30 87 16 165/78 08/24/20 14:15 88 16 161/77 08/24/20 14:00 85 16 149/77 08/24/20 13:45 84 16 148/73 08/24/20 13:30 86 16 159/72 08/24/20 13:16 98.8 F 85 16 153/71 08/24/20 10:09 98.4 F 87 16 141/63 Pulse Ox 08/24/20 19:02 97 08/24/20 17:13 96 08/24/20 16:00 97 08/24/20 15:30 96 08/24/20 15:00 99 08/24/20 14:30 98 08/24/20 14:15 99 08/24/20 14:00 99 08/24/20 13:45 93 L 08/24/20 13:30 98 08/24/20 13:16 94 L 08/24/20 10:09 96 Intake and Output 08/24/20 08/24/20 08/24/20 06:59 14:59 22:59 Intake Total 901 100 Output Total 100 500 Balance 801 -400 Intake: IV 901 100 Output: Urine 500 Estimated Blood Loss 100 Other: Weight 77.11 kg 77.11 kg
[2020-08-24] MEDS: carvediloL 12.5 MG TAB PO SCH (22:24)
[2020-08-24] MEDS: ZOLPIDEM 10 MG TAB PO SCH (22:24)
[2020-08-25] MEDS: HYDROmorphone 0.5 MG/0.5 ML SYRINGE IVP PRN ×2 (01:39→23:07)
--- NOTE | 2020-08-25 05:22 | OP ---
OPERATIVE REPORT DATE OF PROCEDURE: 08/24/2020 SURGEON: Malachi Jennings M.D. ICE CREAM FREEZER: MALIK Dean. PREOPERATIVE DIAGNOSIS: Left knee osteoarthrosis. POSTOPERATIVE DIAGNOSIS: Left knee osteoarthrosis. OPERATION: Left total knee arthroplasty. ANESTHESIA: Spinal with sedation. ESTIMATED BLOOD LOSS: 100 mL. TOURNIQUET: Tourniquet time is 41 minute at 250 mmHg. COMPLICATIONS: None apparent. DRAINS: None. DISPOSITION: Postanesthesia care unit. INDICATIONS: [place] is a very pleasant 75-year-old female with longstanding history of left knee pain. Her symptoms and examination are consist with advanced left knee osteoarthrosis. She has been through significant nonoperative management up to this point. Further treatment options were discussed and she has decided to go for the left total knee arthroplasty. The risks of procedure were discussed with her in detail. These risks include, but are not limited to risk of infection, nerve damage, bleeding, pain, and a small risk of deep vein thrombosis which could lead to fatal pulmonary embolism. There is also risk of loosening of the implant which could require revision operation. The patient understands these risks. All of her questions were answered to her satisfaction. An appropriate informed consent was obtained. DESCRIPTION OF PROCEDURE: Patient identified in the preoperative holding area. Surgical site was marked by both the patient and myself. She was given 2 g of Ancef IV for prophylactic purposes. She was then transferred to the operative suite. She was placed supine on the operative table. Spinal anesthetic was then administered and dosed per the Anesthesia Department without apparent complication. Examination under anesthesia was then performed. The patient was 2-3 degrees shy of full extension. She had 100 degrees of flexion. The medial collateral ligament, lateral collateral ligament, posterior cruciate ligaments were stable. Tourniquet was then placed high on the left upper thigh well-padded in preparation for surgery. The patient's left lower extremity was then prepped and draped in usual sterile fashion. Standard surgical pause undertaken to ensure that we were operating on the correct site and that appropriate preop antibiotics were given. All staff in the room were in agreement and we proceeded. The outlines of patella were marked surgical pen. A planned 12 cm vertical incision centered over the patella was marked with a surgical pen. Leg was then exsanguinated with Esmarch dressing. The knee was then flexed and tourniquet inflated to 250 mmHg. The total tourniquet time for the procedure was 41 minute. Incision was then made with a 10 blade scalpel. Dissection was carried down sharply overlying fascia. Great care was taken to minimize the skin flaps. Knee was then exposed using a standard medial parapatellar approach. A small cuff of quadriceps tendon was then left for suturing. She was in quite a bit of varus preoperatively. A standard medial release was then made. Superficial medial collateral ligament dissected off the bone around to the posterior aspect of the proximal tibia. The medial meniscus was then excised as well. The lateral meniscus was also released anteriorly. The leg was then externally rotated. The patella was everted. The knee was flexed. The retractors were then placed to protect the collateral ligaments. I then proceeded to remove the infrapatellar fat pad. This was excised sharply tangentially with fibers of the patellar tendon. I then proceeded to remove peripheral osteophytes. This is done with a rongeur. I then proceed with the distal femoral resection. She did have near full extension. A planned 9 mm resection was then done. The femoral canal was then entered in midline of the femur approximately 10 mm anterior to the origin of the posterior cruciate ligament. The john was then advanced down the center of the femur and placed intramedullary. Based on the preoperative radiographs, the angle between the anatomic and mechanical axis of the femur was approximately 4-5 degrees. The valgus angle of this femoral cutting guide was then set at 4 degrees for the left knee. The distal femoral cutting guide was advanced over the intramedullary john. This was seated firmly against the femur. As mentioned, planned to take 9 mm off the distal femur. The cutting block was then secured onto the femur with pins. The jig was removed. The distal femoral cut was made through the slot of the block. The pins were then removed. The distal femoral cutting block was removed. The accuracy of the distal femoral cuts was checked with 2 flat bars. I then proceeded with femoral sizing. Posterior referencing sizing guide was held firmly against the resected distal surface of the femur. The posterior condyles were resting on the posterior plane of the guide. The sizing guide was then placed onto the anterior femur. The size was measured as a size 8. I then assessed for femoral rotation. Plan was 3 degrees of external rotation. Three degrees external rotation was placed onto the jig. These holes were then marked. I then confirmed the rotation by 3 separate methods but this was done using epicondylar axis as well as Whitesides line and posterior referencing. It was deemed that the external rotation was proper. I then went forward and placed the femoral cutting block. This was placed over the previously placed pin holes. The Balaji wing was then placed onto the anterior slots to ensure that we would not notch the anterior femur with the anterior femoral cut. I then proceed with the anterior femoral cut. This was flush with the anterior cortex of the femur. The posterior cuts were then made followed by the anterior chamfer cut, then the posterior chamfer cut. The cutting block was then removed. Throughout the resection, the collateral ligaments were protected with retractors. I then placed a trial size 8 femur. It was slightly wide mediolateral but the narrow fit very nicely and fit flush with the distal end of the femur. The drill holes were then made. I then proceeded with the tibial cut. I planned for cruciate retaining knee. The guide was placed in separate varus valgus and for slope. The height was set for approximate 2 mm resection from the medial tibial plateau which was the lower side. I was happy with the alignment and the amount of resection. The cutting block was then pinned to the proximal tibia. The alignment john was removed. The proximal tibia was resected with a reciprocating saw. Again this was done with retractors protecting the collateral ligaments as well as the posterior cruciate ligament. I then proceeded to evaluate the flexion and extension gaps. A 10 mm block was then placed. The flexion-extension gaps were equal. I then proceed with resection of the posterior osteophytes. She had very minimal posterior osteophytes. This is done using a curved osteotome. This resected the posterior osteophytes and posterior capsule stripping was done off the posterior aspect of the femur at this time. The osteophytes were then removed. I then proceed with resection of the patella. The thickness of the patella was measured using the caliper. The thickness was 22 mm. The thickness of the anticipated patellar dome was taken into account. Resection was then performed and confirmed to be equal in 4 quadrants using a caliper. Approximately 14 mm of bone remained after resection. A 29 x 8 standard patellar trial was then placed. The holes drilled. The trial was then placed. I then proceeded with sizing tibial plate. A size C tibial plate fit very nicely. I then placed the trial femur, the tibial tray and patellar button. A 10 mm trial tibial insert was also placed. The components fit very nicely. She had full extension and flexion. The extension and flexion gaps were equal and stable to both varus and valgus stress. The patella tracked appropriately. Tibial tray rotation was then marked with a Bovie. This was externally rotated properly. I then proceeded with the tibial preparation. First drilled the femoral holes, removed femoral component. The tibial tray was then set for proper external rotation as well as mediolateral placement onto the tibia. It was then pinned into place. I then proceed with punching the keel. I then decided to proceed with cementing of all of our components. The knee was thoroughly irrigated with sterile saline solution via pulse lavage. The lateral geniculate artery was identified and cauterized. All blood was removed from the bone of the tibia, femur and patella with pulse lavage. I then proceeded with cementing. Two packs of antibiotic bone cement was prepared on the back table by the surgical instruments inspector. I then proceed with cementing of the tibia first. The cement was impacted in the keel as well as deeply seated into the bone. A second coat of cement was then placed. The tibia was then impacted into place. Excess cement was removed with [place]'s and jokers. I then proceed with cementing of the femoral component. The femoral component was also cemented using standard technique. Excess cement was removed. A 10 mm trial insert was then placed into the knee. It was brought into full extension with a constant axial load placed until the cement had hardened. The patellar component was then cemented. This was held firmly with a compressive device until the cement had dried. When the cement had dried, the knee was taken out of extension. All excess cement was removed from around the prosthesis. I then trialed the knee with a 10 mm insert. Flexion and extension gaps were appropriate. The knee was stable. Came in full extension. I decided to go for the 10 mm medial congruent cruciate-retaining tibial insert. Polyethylene was then placed onto the tray and locked into place. The knee was then reduced. The knee again was further irrigated with sterile saline solution with antibiotic added. The tourniquet was then deflated. The total tourniquet time for the procedure was 41 minute at 250 mmHg. Final components were Annie Persona size 8 narrow cruciate-retaining femoral component, size C tibial tray, a 10 mm medial congruent cruciate-retaining polyethylene insert and a 29 x 8 mm patella. I then proceeded with closure. Again, the knee was thoroughly irrigated. The quadriceps tendon and the medial retinaculum were reapproximated with #2 Ethibond suture. The extensor mechanism was then closed with a running #2 Quill suture. Subcutaneous tissues were closed with 2-0 Vicryl interrupted suture. The skin was closed with a running 3-0 Quill suture. Dermabond was applied to the incision. Sterile compressive dressing was then applied. All sponge and needle counts were deemed correct prior to closure. The patient tolerated the procedure without apparent complication. She was transferred to the recovery room in stable condition. MMODL / IJN: [id number] /
[2020-08-25] MEDS: LACTATED RINGERS 1,000 ML IV SCH ×3 (05:48→17:33)
[2020-08-25] MEDS: HYDROcodone/APAP 10-325MG 1 EACH TAB PO PRN ×3 (06:22→17:32)
[2020-08-25] MEDS: LEVOTHYROXINE 100 MCG TAB PO SCH (06:22)
[2020-08-25 06:50] LABS: Basophils % (A) 0 %; Eosinophils % (A) 0 %; HCT 31.4 % (34.0-46.0); HGB 10.1 gm/dL (11.4-16.0); Lymphocytes # (A) 0.7 k/uL (1.0-4.8); Lymphocytes % (A) 7 %; MCH 28.8 pg (25.0-35.0); MCHC 32.3 g/dL (31.0-37.0); MCV 89.4 fL (80.0-100.0); Mean Platelet Volume 6.9; Monocytes # (A) 0.6 k/uL (0-1.0); Monocytes % (A) 6 %; Neutrophils # (A) 8.4 k/uL (1.3-7.7); Neutrophils % (A) 86 %; Platelet Count 222 k/uL (150-450); RBC 3.51 m/uL (3.80-5.40); WBC 9.8 k/uL (3.8-10.6)
--- NOTE | 2020-08-25 07:41 | P.PN ---
Progress Note - Text Progress Note Date: 08/25/20 Patient with significant pain. States pain 09/02. Receiving multimodal analgesia. Increasing rate of OnQ. Pt is ambulating to the bathroom. POD#1 s/p L TKA. - continue multimodal analgesia
[2020-08-25] MEDS: FLECAINIDE 50 MG TAB PO SCH ×2 (09:15→21:03)
[2020-08-25] MEDS: carvediloL 12.5 MG TAB PO SCH ×2 (09:15→17:32)
[2020-08-25] MEDS: DULoxetine HCL 60 MG CAPSULE.DR PO SCH (09:16)
[2020-08-25] MEDS: MAGNESIUM OXIDE 400 MG TAB PO SCH (09:16)
[2020-08-25] MEDS: MULTIVITAMINS, THERA 1 EACH TAB PO SCH (09:16)
--- NOTE | 2020-08-25 10:01 | P.PN ---
Subjective Progress Note Date: 08/25/20 Principal diagnosis: Left TKA Patient is seen at bedside this morning. She is postop day #1 from left total knee arthroplasty. She has pain at the surgical site as expected but denies any new complaints. He denies numbness, tingling or calf pain. Review of systems is negative for fever, chills, chest pain, shortness of breath or other Objective - Vital Signs Vital signs: Vital Signs Temp 99.3 F 08/25/20 07:00 Pulse 84 08/25/20 07:00 Resp 16 08/25/20 00:40 BP 170/78 08/25/20 07:00 Pulse Ox 95 08/25/20 07:00 Intake & Output 08/24/20 08/25/20 08/25/20 18:59 06:59 18:59 Intake Total 1001 1200 Output Total 100 500 Balance 901 700 Weight 77.11 kg Intake: IV 1001 Intake, IV Titration 900 Amount Lactated Ringers 1,000 ml 800 @ 100 mls/hr IV .Q10H ALEX Rx#:[id number] ceFAZolin 2 gm In Sodium 100 Chloride 0.9% 50 ml @ 100 mls/hr IVPB Q8H ALEX Rx#: [id number] Oral 300 Output: Urine 500 Estimated Blood Loss 100 Other: # Voids 1 - Exam Inspection reveals a benign surgical wound. There is no active bleeding or drainage. Neurovascular status is intact throughout the lower extremity with motor and sensation fully intact. Calf is soft and nontender. 2+ dorsalis pedis pulse and less than 2 second cap refill is present. - Constitutional General appearance: Present: no acute distress - Labs CBC & Chem 7: 08/25/20 06:06 Labs: Abnormal Lab Results - Last 24 Hours (Table) 08/25/20 Range/Units 06:06 RBC 3.51 L (3.80-5.40) m/uL Hgb 10.1 L (11.4-16.0) gm/dL Hct 31.4 L (34.0-46.0) % Neutrophils # 8.4 H (1.3-7.7) k/uL Lymphocytes # 0.7 L (1.0-4.8) k/uL Assessment and Plan (1) History of arthroplasty of left knee Narrative/Plan: She will continue with routine postop orthopedic protocol including pain management, wound care, PT, DVT prophylaxis and medical management. Expect that he will transfer to home tomorrow Current Visit: Yes Status: Acute Code(s): Z96.652 - PRESENCE OF LEFT ARTIFICIAL KNEE JOINT SNOMED Code(s): 684169096 Time with Patient: Less than 30
[2020-08-25] MEDS: SENNOSIDES-DOCUSATE SODIUM 1 EACH TAB PO SCH (21:03)
[2020-08-25] MEDS: ZOLPIDEM 10 MG TAB PO SCH (21:03)
--- NOTE | 2020-08-25 21:20 | P.PN ---
Progress Note - Text Progress Note Date: 08/25/20 - Chief Complaint Left knee surgery - History of Present Illness Consultation: Very pleasant 75-year-old patient of Dr. Singh. 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 Because of severe arthritis now patient been using a wheelchair. Patient today underwent left total knee arthroplasty. Today-laying in bed. Feeling better. Some pain present. Did tolerate her breakfast. Did work with therapy. Breathing is stable. Review of systems: Was done for constitutional, cardiovascular, GI, pulmonary. relevant finding as above Active Medications Acetaminophen (Acetaminophen Tab 325 Mg Tab) 650 mg PO Q4HR PRN PRN Reason: Pain Scale 1 to 5 Hydrocodone Bitart/Acetaminophen (Hydrocodone/Apap 5-325mg 1 Each Tab) 1 each PO Q6HR PRN PRN Reason: Pain Scale 1 to 5 Hydrocodone Bitart/Acetaminophen (Hydrocodone/Apap 10-325mg 1 Each Tab) 1 each PO Q6H PRN PRN Reason: Pain Scale 6 to 10 Last Admin: 08/25/20 17:32 Dose: 1 each Documented by: Bisacodyl (Bisacodyl 10 Mg Supp) 10 mg RECTAL DAILY PRN PRN Reason: Constipation Carvedilol (Carvedilol 12.5 Mg Tab) 12.5 mg PO AC-BID [facility] Last Admin: 08/25/20 17:32 Dose: 12.5 mg Documented by: Ropivacaine 1,090 mg/ Bandage/ (Support Products 1 each) 0 mg MISCELLANE Q2H PRN PRN Reason: Breakthrough Pain Last Admin: 08/24/20 13:46 Dose: 1,090 mg Documented by: Diazepam (Diazepam 5 Mg Tab) 2.5 mg PO Q8HR PRN PRN Reason: Mild Spasms Duloxetine HCl (Duloxetine Hcl 60 Mg Capsule.) 120 mg PO DAILY [facility] Last Admin: 08/25/20 09:16 Dose: 120 mg Documented by: Flecainide Acetate (Flecainide 50 Mg Tab) 100 mg PO Q12HR [facility] Last Admin: 08/25/20 21:03 Dose: 100 mg Documented by: Hydromorphone HCl (Hydromorphone 0.5 Mg/0.5 Ml Syringe) 0.125 mg IVP Q3HR PRN PRN Reason: Pain Scale 1 to 3 Hydromorphone HCl (Hydromorphone 0.5 Mg/0.5 Ml Syringe) 0.25 mg IVP Q3HR PRN PRN Reason: Pain Scale 4 to 6 Hydromorphone HCl (Hydromorphone 0.5 Mg/0.5 Ml Syringe) 0.5 mg IVP Q3HR PRN PRN Reason: Pain Scale 7 to 10 Last Admin: 08/25/20 01:39 Dose: 0.5 mg Documented by: Hydroxyzine Pamoate (Hydroxyzine Pamoate 25 Mg Cap) 25 mg PO Q4HR PRN PRN Reason: Nausea, Anxiety, Pain Control Lactated Ringer's (Lactated Ringers) 1,000 mls @ 20 mls/hr IV .Q24H [facility] Last Admin: 08/25/20 05:49 Dose: Not Given Documented by: Lactated Ringer's (Lactated Ringers) 1,000 mls @ 100 mls/hr IV .Q10H [facility] Last Admin: 08/25/20 17:33 Dose: Not Given Documented by: Levothyroxine Sodium (Levothyroxine 100 Mcg Tab) 100 mcg PO 0630 [facility] Last Admin: 08/25/20 06:22 Dose: 100 mcg Documented by: Magnesium Hydroxide (Magnesium Hydroxide 2,400 Mg/10 Ml Cup) 2,400 mg PO DAILY PRN PRN Reason: Constipation Magnesium Oxide (Magnesium Oxide 400 Mg Tab) 200 mg PO DAILY [facility] Last Admin: 08/25/20 09:16 Dose: 200 mg Documented by: Multivitamins (Multivitamins, Thera 1 Each Tab) 1 each PO DAILY@1200 [facility] Last Admin: 08/25/20 09:16 Dose: 1 each Documented by: Naloxone HCl (Naloxone 0.4 Mg/Ml 1 Ml Vial) 0.2 mg IV Q2M PRN PRN Reason: Opioid Reversal Non-Formulary Medication (Linaclotide [Linzess]) 145 mcg PO DAILY PRN PRN Reason: Constipation Ondansetron HCl (Ondansetron 4 Mg/2 Ml Vial) 4 mg IVP Q8HR PRN PRN Reason: Nausea And Vomiting Senna/Docusate Sodium (Sennosides-Docusate Sodium 1 Each Tab) 2 each PO [facility] Last Admin: 08/25/20 21:03 Dose: 2 each Documented by: Sodium Biphosphate/Sodium Phosphate (Na Phos,M-B/Na Phos,Di-Ba 133 Ml Enema) 133 ml RECTAL DAILY PRN PRN Reason: Constipation Tramadol HCl (Tramadol 50 Mg Tab) 50 mg PO Q6HR PRN PRN Reason: Pain Scale 1 to 5 Zolpidem Tartrate (Zolpidem 10 Mg Tab) 10 mg PO [facility] Last Admin: 08/25/20 21:03 Dose: 10 mg Documented by: Physical examination: VITAL SIGNS: 99.3, 84, 16, 170/78, 95% on room air GENERAL: Laying in bed, awake comfortable. EYES: Pupils equal. Conjunctiva normal. NECK: JVD not raised; masses not palpable. HEART: First and second heart sounds are normal; no edema. LUNGS: Respiratory rate normal; clear to auscultation. ABDOMEN: Soft, nontender, liver spleen not palpable, no masses palpable. PSYCH: Alert and oriented x3; mood and affect normal. MUSKO schedule: Evidence of OA, dressing over the left knee INVESTIGATIONS, reviewed in the clinical context: Hemoglobin 10.1 Previous testing White count 11.7 hemoglobin 12.1 potassium 4.3 creatinine 0.95-from August 10 EKG tracing personally reviewed by me-normal sinus rhythm Assessment: -Left total knee arthroplasty -Paroxysmal atrial fibrillation currently in sinus rhythm -GERD -Hyperlipidemia -Primary osteoarthritis -Hypothyroid -Psoriatic arthritis -Chronic constipation -Varicose veins -Dupuytrens contracture right middle finger -Obesity BMI 30.1 -Acute postprocedure blood doesn't do be a as expected from surgery Plan: Care was discussed with the patient. Questions answered. Continue current medication treatment plan. Progressing satisfactorily. Thank you Dr. Jennings
[2020-08-26] MEDS: HYDROcodone/APAP 10-325MG 1 EACH TAB PO PRN (00:44)
[2020-08-26] MEDS: HYDROmorphone 0.5 MG/0.5 ML SYRINGE IVP PRN ×3 (02:07→13:09)
[2020-08-26] MEDS: LACTATED RINGERS 1,000 ML IV SCH ×4 (04:23→21:02)
[2020-08-26] MEDS: LEVOTHYROXINE 100 MCG TAB PO SCH (05:58)
[2020-08-26] MEDS ORDERED: HYDROmorphone 1 MG/ML 1 ML SYRINGE IVP PRN (06:23)
[2020-08-26] MEDS: FLECAINIDE 50 MG TAB PO SCH ×2 (07:20→21:01)
[2020-08-26] MEDS: MAGNESIUM OXIDE 400 MG TAB PO SCH (07:20)
[2020-08-26] MEDS: DULoxetine HCL 60 MG CAPSULE.DR PO SCH (07:20)
[2020-08-26] MEDS: carvediloL 12.5 MG TAB PO SCH ×2 (07:20→17:15)
[2020-08-26] MEDS: oxyCODONE-APAP 5-325MG 1 EACH TAB PO PRN ×3 (10:20→21:05)
[2020-08-26] MEDS: APIXABAN 5 MG TAB PO SCH ×2 (10:20→21:01)
--- NOTE | 2020-08-26 11:05 | P.PN ---
Subjective Progress Note Date: 08/26/20 This patient is a 75-year-old female who is status-post left total knee arthroplasty on 08/24/[address] Jennings. Today is postoperative day #2. The patient is examined bedside this morning. She has been up with physical therapy this morning, and is ambulating with a walker with minimal assistance. Patient states her pain was very [id number] overnight. She states she is receiving Dilaudid q3, which is controlling her pain at the moment. She states she is feeling well otherwise. She denies chest pain, shortness breath, nausea, vomiting, fevers, chills. She denies numbness or tingling of the left lower extremity. Vital signs stable. Objective - Vital Signs Vital signs: Vital Signs Temp 98.7 F 08/26/20 07:13 Pulse 100 08/26/20 07:13 Resp 16 08/26/20 07:13 BP 182/84 08/26/20 07:13 Pulse Ox 94 L 08/26/20 07:13 Intake & Output 08/25/20 08/26/20 08/26/20 18:59 06:59 18:59 Intake Total 300 Balance 300 Intake: Oral 300 Other: Voiding Method Bedside Commode # Voids 3 4 - Exam on examination, the patient is sitting on the edge of the bed in no apparent distress. She is alert and oriented 3. On inspection of the left knee, there is a clean, dry, intact dressing in place of the anterior knee. There is no bleeding or drainage through the dressing. The left lower extremity is warm and well-perfused with brisk capillary refill distally. Dorsalis pedis pulse +2. Motor and sensory function are intact of the left lower extremity. Calves are soft and nontender to palpation bilaterally. - Labs CBC & Chem 7: 08/25/20 06:06 Assessment and Plan Assessment: Status-post left total knee arthroplasty on 08/24/2020. Postoperative day #2. Plan: - Weight-bearing as tolerated on the operative leg. Walker for ambulation. - Continue physical therapy for gait and balance training. - Resume eliquis for DVT prophylaxis. - Increase pain medication to Percocet 5/325 mg every 6 hours PRN. Decrease use of IV Dilaudid as tolerated. - Medical management per internal medicine team. - Anticipate discharge home tomorrow, pending medical clearance.
[2020-08-26] MEDS: MULTIVITAMINS, THERA 1 EACH TAB PO SCH (13:09)
--- NOTE | 2020-08-26 19:19 | P.PN ---
Progress Note - Text Progress Note Date: 08/26/20 - Chief Complaint Left knee surgery - History of Present Illness Consultation: Very pleasant 75-year-old patient of Dr. Singh. 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 Because of severe arthritis now patient been using a wheelchair. Patient today underwent left total knee arthroplasty. Today-eating okay. Some pain in the left knee still present. No nausea vomiting. Tired Review of systems: Was done for constitutional, cardiovascular, GI, pulmonary. relevant finding as above Active Medications Acetaminophen (Acetaminophen Tab 325 Mg Tab) 650 mg PO Q4HR PRN PRN Reason: Pain Scale 1 to 5 Apixaban (Apixaban 5 Mg Tab) 5 mg PO BID [facility] Last Admin: 08/26/20 10:20 Dose: 5 mg Documented by: Bisacodyl (Bisacodyl 10 Mg Supp) 10 mg RECTAL DAILY PRN PRN Reason: Constipation Carvedilol (Carvedilol 12.5 Mg Tab) 12.5 mg PO AC-BID [facility] Last Admin: 08/26/20 17:15 Dose: 12.5 mg Documented by: Ropivacaine 1,090 mg/ Bandage/ (Support Products 1 each) 0 mg MISCELLANE Q2H PRN PRN Reason: Breakthrough Pain Last Admin: 08/24/20 13:46 Dose: 1,090 mg Documented by: Diazepam (Diazepam 5 Mg Tab) 2.5 mg PO Q8HR PRN PRN Reason: Mild Spasms Duloxetine HCl (Duloxetine Hcl 60 Mg Capsule.) 120 mg PO DAILY [facility] Last Admin: 08/26/20 07:20 Dose: 120 mg Documented by: Flecainide Acetate (Flecainide 50 Mg Tab) 100 mg PO Q12HR [facility] Last Admin: 08/26/20 07:20 Dose: 100 mg Documented by: Hydromorphone HCl (Hydromorphone 0.5 Mg/0.5 Ml Syringe) 0.125 mg IVP Q3HR PRN PRN Reason: Pain Scale 1 to 3 Hydromorphone HCl (Hydromorphone 0.5 Mg/0.5 Ml Syringe) 0.25 mg IVP Q3HR PRN PRN Reason: Pain Scale 4 to 6 Hydromorphone HCl (Hydromorphone 0.5 Mg/0.5 Ml Syringe) 0.5 mg IVP Q3HR PRN PRN Reason: Pain Scale 7 to 10 Last Admin: 08/26/20 13:09 Dose: 0.5 mg Documented by: Hydromorphone HCl (Hydromorphone 1 Mg/Ml 1 Ml Syringe) 1 mg IVP Q3HR PRN PRN Reason: Pain Last Admin: 08/26/20 07:19 Dose: 1 mg Documented by: Hydroxyzine Pamoate (Hydroxyzine Pamoate 25 Mg Cap) 25 mg PO Q4HR PRN PRN Reason: Nausea, Anxiety, Pain Control Lactated Ringer's (Lactated Ringers) 1,000 mls @ 20 mls/hr IV .Q24H [facility] Last Admin: 08/26/20 05:52 Dose: Not Given Documented by: Lactated Ringer's (Lactated Ringers) 1,000 mls @ 100 mls/hr IV .Q10H [facility] Last Admin: 08/26/20 12:13 Dose: Not Given Documented by: Levothyroxine Sodium (Levothyroxine 100 Mcg Tab) 100 mcg PO 0630 [facility] Last Admin: 08/26/20 05:58 Dose: 100 mcg Documented by: Magnesium Hydroxide (Magnesium Hydroxide 2,400 Mg/10 Ml Cup) 2,400 mg PO DAILY PRN PRN Reason: Constipation Magnesium Oxide (Magnesium Oxide 400 Mg Tab) 200 mg PO DAILY [facility] Last Admin: 08/26/20 07:20 Dose: 200 mg Documented by: Multivitamins (Multivitamins, Thera 1 Each Tab) 1 each PO DAILY@1200 [facility] Last Admin: 08/26/20 13:09 Dose: 1 each Documented by: Naloxone HCl (Naloxone 0.4 Mg/Ml 1 Ml Vial) 0.2 mg IV Q2M PRN PRN Reason: Opioid Reversal Non-Formulary Medication (Linaclotide [Linzess]) 145 mcg PO DAILY PRN PRN Reason: Constipation Ondansetron HCl (Ondansetron 4 Mg/2 Ml Vial) 4 mg IVP Q8HR PRN PRN Reason: Nausea And Vomiting Oxycodone/Acetaminophen (Oxycodone-Apap 5-325mg 1 Each Tab) 1 each PO Q6HR PRN PRN Reason: Pain Last Admin: 08/26/20 15:41 Dose: 1 each Documented by: Senna/Docusate Sodium (Sennosides-Docusate Sodium 1 Each Tab) 2 each PO HS [facility] Last Admin: 08/25/20 21:03 Dose: 2 each Documented by: Sodium Biphosphate/Sodium Phosphate (Na Phos,M-B/Na Phos,Di-Ba 133 Ml Enema) 133 ml RECTAL DAILY PRN PRN Reason: Constipation Tramadol HCl (Tramadol 50 Mg Tab) 50 mg PO Q6HR PRN PRN Reason: Pain Scale 1 to 5 Zolpidem Tartrate (Zolpidem 10 Mg Tab) 10 mg PO HS [facility] Last Admin: 08/25/20 21:03 Dose: 10 mg Documented by: Physical examination: VITAL SIGNS: 98.3, 92, 18, 131/75, 94% on room air GENERAL: Laying in bed, awake EYES: Pupils equal. Conjunctiva normal. NECK: JVD not raised; masses not palpable. HEART: First and second heart sounds are normal; no edema. LUNGS: Respiratory rate normal; clear to auscultation. ABDOMEN: Soft, nontender, liver spleen not palpable, no masses palpable. PSYCH: Alert and oriented x3; mood and affect normal. MUSKO schedule: Evidence of OA, dressing over the left knee INVESTIGATIONS, reviewed in the clinical context: Hemoglobin 10.1 Previous testing White count 11.7 hemoglobin 12.1 potassium 4.3 creatinine 0.95-from August 10 EKG tracing personally reviewed by me-normal sinus rhythm Assessment: -Left total knee arthroplasty -Paroxysmal atrial fibrillation currently in sinus rhythm -GERD -Hyperlipidemia -Primary osteoarthritis -Hypothyroid -Psoriatic arthritis -Chronic constipation -Varicose veins -Dupuytrens contracture right middle finger -Obesity BMI 30.1 -Acute postprocedure blood doesn't do be a as expected from surgery Plan: Discussed with the patient. Continue current medication treatment plan. Thank you Dr. Jennings
[2020-08-26] MEDS: ZOLPIDEM 10 MG TAB PO SCH (21:01)
[2020-08-26] MEDS: SENNOSIDES-DOCUSATE SODIUM 1 EACH TAB PO SCH (21:01)
[2020-08-27] MEDS: HYDROmorphone 0.5 MG/0.5 ML SYRINGE IVP PRN ×2 (01:09→07:22)
[2020-08-27] MEDS: oxyCODONE-APAP 5-325MG 1 EACH TAB PO PRN ×2 (04:10→11:00)
[2020-08-27] MEDS: LACTATED RINGERS 1,000 ML IV SCH ×2 (04:59→06:52)
[2020-08-27] MEDS: LEVOTHYROXINE 100 MCG TAB PO SCH (05:57)
[2020-08-27 06:40] LABS: Basophils % (A) 0 %; Eosinophils # (A) 0.1 k/uL (0-0.7); Eosinophils % (A) 1 %; HCT 30.8 % (34.0-46.0); Lymphocytes % (A) 12 %; MCH 29.1 pg (25.0-35.0); MCHC 32.6 g/dL (31.0-37.0); MCV 89.3 fL (80.0-100.0); Monocytes # (A) 0.5 k/uL (0-1.0); Monocytes % (A) 7 %; Neutrophils # (A) 6.1 k/uL (1.3-7.7); Neutrophils % (A) 77 %; Platelet Count 230 k/uL (150-450); RBC 3.45 m/uL (3.80-5.40); RDW 14.9 % (11.5-15.5); WBC 7.8 k/uL (3.8-10.6)
[2020-08-27 07:19] VITALS: BP 153/83; PULSE 102; RESP 16; TEMP 98.6
[2020-08-27] MEDS: MAGNESIUM OXIDE 400 MG TAB PO SCH (07:22)
[2020-08-27] MEDS: FLECAINIDE 50 MG TAB PO SCH (07:22)
[2020-08-27] MEDS: DULoxetine HCL 60 MG CAPSULE.DR PO SCH (07:22)
[2020-08-27] MEDS: carvediloL 12.5 MG TAB PO SCH (07:22)
[2020-08-27] MEDS: APIXABAN 5 MG TAB PO SCH (07:22)
--- NOTE | 2020-08-27 10:47 | P.DS ---
Providers Date of admission: 08/26/20 10:12 Expected date of discharge: 08/27/20 Attending physician: Malachi Jennings Consults: 08/24/20 09:12 Consult Physician Routine Consulting Provider: Emil Perez Consult Reason/Comments: post op medical management Do you want consulting provider notified?: Yes Primary care physician: P[facility] Course: This is a 75-year-old female who was last seen with complaint of continued left knee pain. The patient has a known history of degenerative arthritis of the left knee and presents to discuss surgical options. After discussion and consideration the patient elects to proceed with total left knee arthroplasty. The patient is seen preoperatively by Dr. Singh and Dr. Dubois and cleared for surgery. The patient is admitted to [facility] for total left knee arthroplasty. The procedures performed without complication or sequelae. She is doing well postoperatively. Vital signs are stable at discharge. Labs are stable at discharge. The patient is seen and examined bedside this morning. She states her pain is much better controlled on the Percocet 5/325 mg. She states she's doing well this morning and has no complaints. She states she is experiencing low back pain, although this is chronic. She denies numbness or tingling of the bilateral lower extremities. She is voiding freely. She denies bowel or bladder incontinence. She has had a bowel movement postoperatively. She is tolerating her diet well. She denies chest pain, shortness breath, nausea, vomiting, fevers, chills. She would like to return home today. She is ambulating with a walker with minimal assistance. Vital signs stable. On examination, the patient is lying in bed in no apparent distress. She is alert and oriented 3. On inspection of the left lower extremity, there is a clean, dry, intact dressing in place of the anterior knee. There is mild swelling and ecchymosis of the knee. The left lower extremity is warm and well- perfused with brisk capillary refill distally. Dorsalis pedis pulse +2. Patient has good strength and range of motion of the left ankle. Motor and sensory function are intact of the left lower extremity. Calves are soft and nontender to palpation bilaterally. The patient is discharged to home on postop day #3, pending medical clearance. Please see orders and refer to the med rec for accurate list of medications. Patient Condition at Discharge: Fair Plan - Discharge Summary Discharge Rx Participant: No New Discharge Prescriptions: New oxyCODONE HCL/ACETAMINOPHEN [Percocet 5-325 mg] 1 tab PO Q6HR PRN 7 Days #28 tab PRN Reason: Pain No Action DULoxetine HCL [Cymbalta] 120 mg PO DAILY Carvedilol [Coreg] 12.5 mg PO BID Apixaban [Eliquis] 5 mg PO BID Levothyroxine Sodium [Synthroid] 100 mcg PO DAILY Flecainide Acetate [Tambocor] 100 mg PO Q12HR Magnesium 120 mg PO DAILY Amoxicillin 500 mg PO Q8H HYDROcodone/APAP 5-325MG [[place] 5-325] 1 tab PO Q6HR PRN PRN Reason: Pain Linaclotide [Linzess] 145 mcg PO DAILY PRN PRN Reason: Constipation Risankizumab-Rzaa [Skyrizi (2 Syringes) Kit] 300 mg SQ Q120D Zolpidem [Ambien] 10 mg PO HS Discharge Medication List DULoxetine HCL [Cymbalta] 120 mg PO DAILY 10/14/17 [History] Carvedilol [Coreg] 12.5 mg PO BID 11/20/17 [History] Apixaban [Eliquis] 5 mg PO BID 12/01/17 [History] Flecainide Acetate [Tambocor] 100 mg PO Q12HR 07/28/18 [History] Levothyroxine Sodium [Synthroid] 100 mcg PO DAILY 07/28/18 [History] Magnesium 120 mg PO DAILY 07/28/18 [History] Amoxicillin 500 mg PO Q8H 08/22/20 [History] HYDROcodone/APAP 5-325MG [[place] 5-325] 1 tab PO Q6HR PRN 08/22/20 [History] Linaclotide [Linzess] 145 mcg PO DAILY PRN 08/22/20 [History] Risankizumab-Rzaa [Skyrizi (2 Syringes) Kit] 300 mg SQ Q120D 08/22/20 [History] Zolpidem [Ambien] 10 mg PO HS 08/24/20 [History] oxyCODONE HCL/ACETAMINOPHEN [Percocet 5-325 mg] 1 tab PO Q6HR PRN 7 Days #28 tab 08/27/20 [Rx] Follow up Appointment(s)/Referral(s): Papi Singh DO [Primary Care Provider] - 1 Week (Office will call you with your appointment date and time.) [facility] [NON-STAFF] - As Needed (walker) [facility], [NON-STAFF] - As Needed Malachi Jennings MD [STAFF PHYSICIAN] - 09/04/20 10:20 am Ambulatory/Diagnostic Orders: [facility] [DME.AMB1] Location: None Selected Activity/Diet/Wound Care/Special Instructions: Keep wound clean and dry Take meds as directed, resume Eliquis for DVT prophylaxis Follow-up with Dr. Jennings in office Weight bear as tolerated May shower in 3 days if no bleeding Discharge Disposition: HOME WITH HOME HEALTH SERVICES
--- NOTE | 2020-08-27 17:40 | P.PN ---
Progress Note - Text Progress Note Date: 08/27/20 - Chief Complaint Left knee surgery Consultation: Very pleasant 75-year-old patient of Dr. Singh. 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 Because of severe arthritis now patient been using a wheelchair. underwent left total knee arthroplasty. Today-feeling well. Walked in the hallway with a walker. Pain much better control. No nausea vomiting. Eating well. Review of systems: Was done for constitutional, cardiovascular, GI, pulmonary. relevant finding as above Current medications reviewed in today's electronic records Physical examination: VITAL SIGNS: 98.6, 100, 16, 1 53 x 83, 96% room air GENERAL: Sitting at the age of the bed, comfortable EYES: Pupils equal. Conjunctiva normal. NECK: JVD not raised; masses not palpable. HEART: First and second heart sounds are normal; no edema. LUNGS: Respiratory rate normal; clear to auscultation. ABDOMEN: Soft, nontender, liver spleen not palpable, no masses palpable. PSYCH: Alert and oriented x3; mood and affect normal. MUSKO schedule: Evidence of OA, dressing over the left knee INVESTIGATIONS, reviewed in the clinical context: Hemoglobin 10 Previous testing White count 11.7 hemoglobin 12.1 potassium 4.3 creatinine 0.95-from August 10 EKG tracing personally reviewed by me-normal sinus rhythm Assessment: -Left total knee arthroplasty -Paroxysmal atrial fibrillation currently in sinus rhythm -GERD -Hyperlipidemia -Primary osteoarthritis -Hypothyroid -Psoriatic arthritis -Chronic constipation -Varicose veins -Dupuytrens contracture right middle finger -Obesity BMI 30.1 -Acute postprocedure blood doesn't do be a as expected from surgery Plan: Doing well. Follow-up with family doctor upon discharge. Discussed with patient Thank you Dr. Jennings
== END 2020-08-27 11:51 | disposition home health service (06) | DRG 470 ==
LOC: OR 09:41 → 4SSUR 16:10 → OR 08-26 10:12 → OBSVTOIN 08-27 08:30
PROVIDERS: ADMIT Orthopaedic Surgery Sports Medicine; ATTEND Orthopaedic Surgery Sports Medicine
PROC: 0SRD0J9 Replacement of Left Knee Joint with Synthetic Substitute, Cemented, Open Approach (ICD-10-PCS; principal; 2020-08-24 11:40)
DX: M17.12 Unilateral primary osteoarthritis, left knee (principal); L40.50 Arthropathic psoriasis, unspecified; M41.56 Other secondary scoliosis, lumbar region; I48.0 Paroxysmal atrial fibrillation; M71.22 Synovial cyst of popliteal space [Baker], left knee; I08.0 Rheumatic disorders of both mitral and aortic valves; K21.9 Gastro-esophageal reflux disease without esophagitis; E78.5 Hyperlipidemia, unspecified; G47.33 Obstructive sleep apnea (adult) (pediatric); E03.9 Hypothyroidism, unspecified; I12.9 Hypertensive chronic kidney disease with stage 1 through stage 4 chronic kidney disease, or unspecified chronic kidney disease; N18.9 Chronic kidney disease, unspecified; K59.09 Other constipation; I83.90 Asymptomatic varicose veins of unspecified lower extremity; M72.0 Palmar fascial fibromatosis [Dupuytren]; F32.9 Major depressive disorder, single episode, unspecified; F41.9 Anxiety disorder, unspecified; L40.9 Psoriasis, unspecified; M48.061 Spinal stenosis, lumbar region without neurogenic claudication; M51.37 Other intervertebral disc degeneration, lumbosacral region; M54.16 Radiculopathy, lumbar region; G89.29 Other chronic pain; H91.90 Unspecified hearing loss, unspecified ear; E66.9 Obesity, unspecified; Z68.30 Body mass index [BMI] 30.0-30.9, adult; Z79.01 Long term (current) use of anticoagulants; Z79.890 Hormone replacement therapy; Z79.899 Other long term (current) drug therapy; Z86.73 Personal history of transient ischemic attack (TIA), and cerebral infarction without residual deficits; Z87.39 Personal history of other diseases of the musculoskeletal system and connective tissue; Z87.19 Personal history of other diseases of the digestive system; Z87.42 Personal history of other diseases of the female genital tract; Z87.440 Personal history of urinary (tract) infections; Z87.11 Personal history of peptic ulcer disease; Z90.49 Acquired absence of other specified parts of digestive tract; Z90.710 Acquired absence of both cervix and uterus; Z96.651 Presence of right artificial knee joint; Z98.890 Other specified postprocedural states; Z88.1 Allergy status to other antibiotic agents; Z88.2 Allergy status to sulfonamides; Z88.8 Allergy status to other drugs, medicaments and biological substances; Z80.3 Family history of malignant neoplasm of breast; Z80.8 Family history of malignant neoplasm of other organs or systems; Z80.0 Family history of malignant neoplasm of digestive organs; Z82.49 Family history of ischemic heart disease and other diseases of the circulatory system; Z81.8 Family history of other mental and behavioral disorders
CPT/HCPCS: 64448; 76942; 85025; 88300

== ENCOUNTER 2020-09-26 04:06 | Emergency (ER) | payer MEDICARE ==
[2020-09-26 05:04] LABS: Albumin 3.5 g/dL (3.5-5.0); C Reactive Protein 22.4 mg/L (<10.0); Calcium 9.5 mg/dL (8.4-10.2); Magnesium 1.7 mg/dL (1.6-2.3); Total Bilirubin 0.3 mg/dL (0.2-1.3); Total Protein 6.3 g/dL (6.3-8.2)
[2020-09-26 05:05] LABS: Basophils % (A) 0 %; Eosinophils # (A) 0.2 k/uL (0-0.7); Eosinophils % (A) 3 %; HGB 11.1 gm/dL (11.4-16.0); Hypochromasia Slight; Lymphocytes # (A) 1.7 k/uL (1.0-4.8); Lymphocytes % (A) 20 %; MCH 28.4 pg (25.0-35.0); MCHC 31.6 g/dL (31.0-37.0); MCV 89.7 fL (80.0-100.0); Mean Platelet Volume 6.8; Monocytes # (A) 0.6 k/uL (0-1.0); Monocytes % (A) 7 %; Neutrophils # (A) 5.7 k/uL (1.3-7.7); Neutrophils % (A) 68 %; Platelet Count 305 k/uL (150-450); WBC 8.3 k/uL (3.8-10.6)
--- NOTE | 2020-09-26 05:16 | ED ---
Extremity Problem HPI - General Chief complaint: Extremity Problem,Nontraumatic Stated complaint: lt knee pain Time Seen by Provider: 09/26/20 04:15 Source: patient, family Mode of arrival: wheelchair Limitations: no limitations - History of Present Illness Initial comments: Geneva Is a pleasant 75-year-old female who underwent a left total knee replaceme nt with Dr. Jennings on August 24, patient has been healing well she's been following with physical therapy she's regained her full range of motion and has been ambulatory with a cane. Patient reports that over the past 2-3 days she's been feeling like there is a pulling sensation in the back of her knee. She reports feeling like she is having charley horses in her calf and her knee. She does have a history of bakers cyst which caused similar discomfort. She's not noted any swelling she is on eliquis. She called her Orthopedist yesterday but did not receive a call back. The discomfort was keeping her from sleeping today which prompted her to come to the ER for evaluation. - Related Data Home Medications Medication Instructions Recorded Confirmed DULoxetine HCL [Cymbalta] 120 mg PO DAILY 10/14/17 08/24/20 Carvedilol [Coreg] 12.5 mg PO BID 11/20/17 08/24/20 Apixaban [Eliquis] 5 mg PO BID 12/01/17 08/24/20 Flecainide Acetate [Tambocor] 100 mg PO Q12HR 07/28/18 08/24/20 Levothyroxine Sodium [Synthroid] 100 mcg PO DAILY 07/28/18 08/24/20 Magnesium 120 mg PO DAILY 07/28/18 08/24/20 Amoxicillin 500 mg PO Q8H 08/22/20 08/22/20 HYDROcodone/APAP 5-325MG [[place] 1 tab PO Q6HR PRN 08/22/20 08/24/20 5-325] Linaclotide [Linzess] 145 mcg PO DAILY PRN 08/22/20 08/22/20 Risankizumab-Rzaa [Skyrizi (2 300 mg SQ Q120D 08/22/20 08/24/20 Syringes) Kit] Zolpidem [Ambien] 10 mg PO HS 08/24/20 08/24/20 Previous Rx's Medication Instructions Recorded oxyCODONE HCL/ACETAMINOPHEN 1 tab PO Q6HR PRN 7 Days #28 tab 08/27/20 [Percocet 5-325 mg] Allergies Allergy/AdvReac Type Severity Reaction Status Date / Time ciprofloxacin [From Cipro] Allergy Rash/Hives Verified 09/26/20 04:11 estradiol Allergy Rash/Hives Verified 09/26/20 04:11 Sulfa (Sulfonamide Allergy Rash/Hives Verified 09/26/20 04:11 Antibiotics) Review of Systems ROS Statement: Those systems with pertinent positive or pertinent negative responses have been documented in the HPI. ROS Other: All systems not noted in ROS Statement are negative. Past Medical History Past Medical History: Atrial Fibrillation, CVA/TIA, GERD/Reflux, Hyperlipidemia, Osteoarthritis (OA), Skin Disorder, Sleep Apnea/CPAP/BIPAP, Thyroid Disorder Additional Past Medical History / Comment(s): TIA (2014), Psoriatic Arthritis., hypothyroid, hx of GERD & hiatal hernia with surgery. chronic constipation. Psoriasis. No tx for sleep apnea. Varicose veins. Duprytren's contracture Rt middle finger. Recent UTI, on po AB Rx for 10 days. 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 History of Any Multi-Drug Resistant Organisms: None Reported Past Surgical History: Appendectomy, Cholecystectomy, Hysterectomy, Joint Replacement, Orthopedic Surgery Additional Past Surgical History / Comment(s): Lap Mario Fundoplication (02/2018), EGDs/colonoscopy, Total R knee arthroplasty, R shoulder rotator cuff repair, ORIF R foot fx x2 surgeries, surgery for ruptured ovarian cyst. Past Anesthesia/Blood Transfusion Reactions: No Reported Reaction Additional Past Anesthesia/Blood Transfusion Reaction / Comment(s): Prefers not to have spinal, "doesn't want to hear the noises" during surgery. Past Psychological History: Anxiety, Depression Smoking Status: Never smoker Past Alcohol Use History: None Reported Past Drug Use History: None Reported - Past Family History Mother Family Medical History: Cancer Additional Family Medical History / Comment(s): MOTHER HAD BREAST CANCER. Father Family Medical History: Cancer Additional Family Medical History / Comment(s): FATHER HAD MELANOMA Sister(s) Family Medical History: Cancer Additional Family Medical History / Comment(s): PANCREATIC CANCER. Another sister had bowel cancer. General Exam - General Exam Comments Initial Comments: Physical Exam GENERAL: Patient is well-developed and well-nourished. Patient is nontoxic and well-hydrated and is in no distress. HENT: Normocephalic, Atraumatic. EYES: PERRL, EOMI PULMONARY: Unlabored respirations. CARDIOVASCULAR: RRR Warm and well perfused extremities no lower extremity edema ABDOMEN: Non-distended SKIN: well-healing surgical incision over the left anterior knee : Deferred NEUROLOGIC: Alert and oriented Normal speech MUSCULOSKELETAL: Full range of motion of the left knee is noted with minimal pain, PSYCHIATRIC: No SI/HI Limitations: no limitations Course Vital Signs 09/26/20 09/26/20 04:09 07:46 Temperature 97.9 F Pulse Rate 92 89 Respiratory 18 16 Rate Blood Pressure 146/84 170/82 O2 Sat by Pulse 98 98 Oximetry Medical Decision Making - Medical Decision Making Patient was seen and evaluated, history obtained from patient Labs obtained, mild elevation of CRP, likely reactive to recent surgery US with cyst in the popliteal fossa Results discussed with patient who will follow up with Ortho - Lab Data Result diagrams: 09/26/20 04:38 09/26/20 04:38 Lab Results 09/26/20 09/26/20 Range/Units 04:38 04:38 WBC 8.3 (3.8-10.6) k/uL RBC 3.90 (3.80-5.40) m/uL Hgb 11.1 L (11.4-16.0) gm/dL Hct 35.0 (34.0-46.0) % MCV 89.7 (80.0-100.0) fL MCH 28.4 (25.0-35.0) pg MCHC 31.6 (31.0-37.0) g/dL RDW 16.0 H (11.5-15.5) % Plt Count 305 (150-450) k/uL Neutrophils % 68 % Lymphocytes % 20 % Monocytes % 7 % Eosinophils % 3 % Basophils % 0 % Neutrophils # 5.7 (1.3-7.7) k/uL Lymphocytes # 1.7 (1.0-4.8) k/uL Monocytes # 0.6 (0-1.0) k/uL Eosinophils # 0.2 (0-0.7) k/uL Basophils # 0.0 (0-0.2) k/uL Hypochromasia Slight Sodium 133 L (137-145) mmol/L Potassium 4.0 (3.5-5.1) mmol/L Chloride 102 (98-107) mmol/L Carbon Dioxide 23 (22-30) mmol/L Anion Gap 8 mmol/L BUN 15 (7-17) mg/dL Creatinine 0.95 (0.52-1.04) mg/dL Est GFR (CKD-EPI)AfAm 69 (>60 ml/min/1.73 sqM) Est GFR (CKD-EPI)NonAf 60 (>60 ml/min/1.73 sqM) Glucose 124 H (74-99) mg/dL Calcium 9.5 (8.4-10.2) mg/dL Magnesium 1.7 (1.6-2.3) mg/dL Total Bilirubin 0.3 (0.2-1.3) mg/dL AST 20 (14-36) U/L ALT 14 (4-34) U/L Alkaline Phosphatase 130 H (38-126) U/L C-Reactive Protein 22.4 H (<10.0) mg/L Total Protein 6.3 (6.3-8.2) g/dL Albumin 3.5 (3.5-5.0) g/dL Disposition Clinical Impression: Post-operative pain, History of arthroplasty of left knee, Shields's cyst of knee Disposition: HOME SELF-CARE Condition: Stable Additional Instructions: Follow up in Dr Balderas's office today for re-evaluation Is patient prescribed a controlled substance at d/c from ED?: No Referrals: Papi Singh DO [Primary Care Provider] - 1-2 days
[2020-09-26] MEDS ORDERED: KETOROLAC 15 MG/ML 1 ML VIAL IVP STA (05:26)
[2020-09-26] MEDS ORDERED: ORPHENADRINE 30 MG/ML 2 ML VIAL IM STA (05:29)
[2020-09-26] MEDS ORDERED: MORPHINE SULFATE 4 MG/ML SYRINGE IVP STA (06:40)
--- NOTE | 2020-09-26 07:50 | US ---
EXAMINATION TYPE: US venous doppler duplex LE LT DATE OF EXAM: 09/26/2020 7:21 AM COMPARISON: Left lower extremity venous ultrasound July 19, 2020 CLINICAL HISTORY: swelling and muscle spasm 1mo post op total knee. SIDE PERFORMED: TECHNIQUE: The lower extremity deep venous system is examined utilizing real time linear array sonog linda with graded compression, doppler sonography and color-flow sonography. VESSELS IMAGED: Common Femoral Vein Deep Femoral Vein Greater Saphenous Vein * Femoral Vein Popliteal Vein Small Saphenous Vein * Proximal Calf Veins (* superficial vessels) Left Leg: Negative for DVT. Complex fluid area seen medial to left popliteal fossa = 4.9 x 2.5 x 1.0 cm. Findings consistent with small to moderate sized popliteal cyst. Grayscale, color doppler, spectral doppler imaging performed of the deep veins of the left lower extr emity. There is normal flow, compressibility, vascular waveforms. IMPRESSION: No ultrasound evidence for acute DVT in the left lower extremity.
[2020-09-26] MEDS ORDERED: carvediloL 12.5 MG TAB PO STA (08:19)
[2020-09-26 08:29] VITALS: BP 155/80; PULSE 94; RESP 18; TEMP 97.8
== END 2020-09-26 08:35 | disposition home or self-care (01) ==
LOC: EC 04:06
DX: G89.18 Other acute postprocedural pain (principal); M71.22 Synovial cyst of popliteal space [Baker], left knee; M79.662 Pain in left lower leg; R79.82 Elevated C-reactive protein (CRP); M19.90 Unspecified osteoarthritis, unspecified site; I48.91 Unspecified atrial fibrillation; K21.9 Gastro-esophageal reflux disease without esophagitis; G47.30 Sleep apnea, unspecified; E03.9 Hypothyroidism, unspecified; F41.9 Anxiety disorder, unspecified; F32.9 Major depressive disorder, single episode, unspecified; Z79.899 Other long term (current) drug therapy; Z79.890 Hormone replacement therapy; Z79.01 Long term (current) use of anticoagulants; Z88.1 Allergy status to other antibiotic agents; Z88.2 Allergy status to sulfonamides; Z88.8 Allergy status to other drugs, medicaments and biological substances; Z86.73 Personal history of transient ischemic attack (TIA), and cerebral infarction without residual deficits; Z96.643 Presence of artificial hip joint, bilateral; Z99.89 Dependence on other enabling machines and devices
CPT/HCPCS: 99284 ×2; 96374 ×2; 96375 ×2; 96372 ×2; 36415; 80053; 83735; 85025; 86140; 93971; J2270; J2360; J1885

== ENCOUNTER → 2020-11-27 | Outpatient (CLI) | payer MEDICARE ==
--- NOTE | 2020-11-29 14:40 | MM ---
Reason for exam: screening (asymptomatic). Last mammogram was performed 1 year ago. History: Patient is postmenopausal. Family history of breast cancer in mother at age 68, breast cancer in maternal aunt at age 60, and breast cancer in paternal grandmother at age 80. Excisional biopsy of the right breast, 1982. Physical Findings: A clinical breast exam by your physician is recommended on an annual basis and results should be correlated with mammographic findings. MG 3D Screening Mammo W/Cad Bilateral CC and MLO view(s) were taken. Prior study comparison: November 23, 2019, bilateral MG 3d screening mammo w/cad. November 03, 2018, bilateral MG 3d screening mammo w/cad. There are scattered fibroglandular densities. No significant changes when compared with prior studies. ASSESSMENT: Benign, BI-RAD 2 RECOMMENDATION: Routine screening mammogram of both breasts in 1 year.
== END | disposition home or self-care (01) ==
LOC: RADMAMWWP 09:43
PROVIDERS: ATTEND Family Medicine
DX: Z12.31 Encounter for screening mammogram for malignant neoplasm of breast (principal)
CPT/HCPCS: 77063; 77067

== ENCOUNTER → 2021-02-09 | Outpatient (CLI) | payer MEDICARE ==
--- NOTE | 2021-02-11 12:32 | CT ---
EXAMINATION TYPE: CT urogram wo/w con DATE OF EXAM: 02/09/2021 HISTORY: Hematuria. Rt renal colic. COMPARISON: CT abdomen and pelvis 11/24/2019 CT DLP: 3828 mGycm. Automated Exposure Control for Dose Reduction was Utilized. TECHNIQUE: CT urogram is performed following intravenous administration of 80 mL Isovue 300. Three-D reconstructed images performed separately computer by the technologist are presented. FINDINGS: Limited CT sections are obtained from the lung bases which are clear. Small hiatal hernia is present. CT ABDOMEN: Liver and spleen without contrast. Normal bowel masses cyst or hydronephrosis. The pancre as appears normal. Gallbladder is decompressed. Adrenal glands are normal. The abdominal aorta and in ferior vena cava are within normal limits. The study is performed without oral contrast. Fecal debri s is through the colon. Small bowel loops appear unremarkable. Following contrast administration small cysts identified within the liver. CTU kidneys: Study is performed without and with intravenous contrast. Attention is paid to the kidn eys. No renal stones are identified on precontrast imaging. No masses cysts or hydronephrosis are jonatan ntified. Ureters follow a normal caliber course and contour to the urinary bladder. No hydroureter is evident. Portion the urinary bladder visualizes unremarkable pre and postcontrast. IMPRESSION: 1. Normal CT urogram. No definite etiology for the patient's hematuria is identified.
== END ==
LOC: RADCTMAIN 15:30
PROVIDERS: ATTEND Urology
DX: R31.0 Gross hematuria (principal); N23 Unspecified renal colic
CPT/HCPCS: 82565; 84520; 74178; 36415; 74400; Q9967

== ENCOUNTER 2021-03-20 10:44 | Day surgery (SDC) | payer MEDICARE ==
[2021-03-16 12:50] VITALS: BMI 30.1
[~2021-03-20 10:44] MED LIST changes: -ACETAMINOPHEN TAB 325 MG TAB PO PRN; -ACETAMINOPHEN TAB 500 MG TAB PO ONE; -DEXAMETHASONE SOD PHOSPHATE 10 MG/ML 1 ML VIAL IV ONE; -GABAPENTIN 300 MG CAP PO ONE; -HYDROcodone/APAP 5-325MG 1 EACH TAB PO PRN; -HYDROmorphone 0.5 MG/0.5 ML SYRINGE IVP PRN; +LACTATED RINGERS 1,000 ML IV SCH; +LIDOCAINE 1% (10MG/ML) FOR IV START INTRADERMA PRN; -MAGNESIUM HYDROXIDE 2,400 MG/10 ML CUP PO PRN; -MELOXICAM 7.5 MG TAB PO ONE; -MIDAZOLAM 2 MG/2 ML VIAL IV PRN; -NA PHOS,M-B/NA PHOS,DI-BA 133 ML ENEMA RECTAL PRN; -NALOXONE 0.4 MG/ML 1 ML VIAL IV PRN; -ONDANSETRON 4 MG/2 ML VIAL IVP ONE; -ONDANSETRON 4 MG/2 ML VIAL IVP PRN; -TEMAZEPAM 15 MG CAP PO PRN; -TRANEXAMIC ACID 1,000 MG in SODIUM CHLORIDE 0.9% 100 ML IVPB ONE; -bisacodyL 10 MG SUPP RECTAL PRN; -diazePAM 5 MG TAB PO PRN; -hydrOXYzine pamoate 25 MG CAP PO PRN; -traMADol 50 MG TAB PO PRN
[2021-03-20 11:07] VITALS: RESP 16; TEMP 98.6
[2021-03-20] MEDS ORDERED: PROPOFOL 10 MG/ML 20 ML VIAL IV ONE (12:10)
[2021-03-20] MEDS ORDERED: SODIUM CHLORIDE 0.9% 500 ML 500 ML IV ONE (12:45)
--- NOTE | 2021-03-20 12:56 | P.PCN ---
Date of Procedure: 03/20/21 Description of Procedure: BRIEF HISTORY: Patient is a 76-year-old female presenting for outpatient colonoscopy for evaluation and change in bowel habits, she also has a personal family history of colon cancer and a personal history of colon polyps. Last colonoscopy was 3 years ago with a suboptimal prep at that time. Previously the patient had been having some loose stools but reports that this is resolved at this time. PROCEDURE PERFORMED: Colonoscopy. PREOPERATIVE DIAGNOSIS: Change in bowel habits, personal history of colon polyps, family history of colon cancer, last colonoscopy in 2018. ESTIMATED BLOOD LOSS: Minimal. IV sedation per Anesthesia. PROCEDURE: After informed consent was obtained, the patient, was brought into the endoscopy unit. IV sedation was administered by Anesthesia under continuous monitoring. Digital rectal examination was normal. Initially the Olympus CF-190 flexible video colonoscope was then inserted in the rectum, gradually advanced into the cecum without any difficulty. Careful examination was performed as the scope was gradually being withdrawn. Ileocecal valve and the appendiceal orifice were visualized and appeared normal. Prep was excellent. Mucosa of the cecum, ascending colon, transverse colon, descending colon, sigmoid colon, and rectum appeared normal. A few scattered diverticula noted in the left colon and low- grade internal hemorrhoids in the rectum. Retroflexion was performed in the rectum and no lesions were seen. The patient tolerated the procedure well. IMPRESSION: Normal-appearing colon from rectum to cecum. Mild sigmoid diverticulosis. Internal hemorrhoids. RECOMMENDATIONS: Findings of this examination were discussed with the patient and her family. Okay to resume diet. Okay to resume medications. Recommend repeat colonoscopy in 5 years for family history of colon cancer.
[2021-03-20 13:10] VITALS: BP 133/63; PULSE 73
== END 2021-03-20 13:24 | disposition home or self-care (01) ==
LOC: ORWHC2ENDO 10:44
PROVIDERS: ATTEND Internal Medicine
DX: R19.4 Change in bowel habit (principal); K57.30 Diverticulosis of large intestine without perforation or abscess without bleeding; K64.8 Other hemorrhoids; Z80.0 Family history of malignant neoplasm of digestive organs; Z86.010 Personal history of colon polyps; I48.91 Unspecified atrial fibrillation; E78.5 Hyperlipidemia, unspecified; L40.50 Arthropathic psoriasis, unspecified; K21.9 Gastro-esophageal reflux disease without esophagitis; Z86.73 Personal history of transient ischemic attack (TIA), and cerebral infarction without residual deficits; Z79.899 Other long term (current) drug therapy; Z79.01 Long term (current) use of anticoagulants; Z88.1 Allergy status to other antibiotic agents; Z88.2 Allergy status to sulfonamides; Z88.8 Allergy status to other drugs, medicaments and biological substances
CPT/HCPCS: 45378; J2704

== ENCOUNTER → 2021-12-27 | Outpatient (CLI) | payer MEDICARE ==
--- NOTE | 2021-12-28 09:16 | MM ---
Reason for exam: screening (asymptomatic). Last mammogram was performed 1 year and 1 month ago. History: Patient is postmenopausal. Family history of breast cancer in mother at age 68, breast cancer in maternal aunt at age 60, and breast cancer in paternal grandmother at age 80. Excisional biopsy of the right breast, 1982. Physical Findings: A clinical breast exam by your physician is recommended on an annual basis and results should be correlated with mammographic findings. MG 3D Screening Mammo W/Cad Bilateral CC and MLO view(s) were taken. Prior study comparison: November 27, 2020, bilateral MG 3d screening mammo w/cad. November 23, 2019, bilateral MG 3d screening mammo w/cad. The breast tissue is heterogeneously dense. This may lower the sensitivity of mammography. Focal asymmetry upper outer right breast zone A. This finding is changed when compared with previous exams. ASSESSMENT: Incomplete: need additional imaging evaluation, BI-RAD 0 RECOMMENDATION: Special view mammogram of the right breast. If lesion persists on supplemental views, image directed ultrasound is recommended. [facility] will attempt to contact patient to return for supplemental views and ultrasound if indicated.
== END | disposition home or self-care (01) ==
LOC: RADMAMWWP 12:53
PROVIDERS: ATTEND Family Medicine
DX: Z12.31 Encounter for screening mammogram for malignant neoplasm of breast (principal); Z78.0 Asymptomatic menopausal state; Z80.3 Family history of malignant neoplasm of breast
CPT/HCPCS: 77063; 77067

== ENCOUNTER → 2021-12-31 | Outpatient (CLI) | payer MEDICARE ==
--- NOTE | 2021-12-31 10:40 | MM ---
Reason for exam: additional evaluation requested from abnormal screening. Last mammogram was performed less than 1 month ago. History: Patient is postmenopausal. Family history of breast cancer in mother at age 68, breast cancer in maternal aunt at age 60, and breast cancer in paternal grandmother at age 80. Excisional biopsy of the right breast, 1982. Physical Findings: Nurse did not find any significant physical abnormalities on exam. MG 3D Work Up W/Cad RT Spot compression CC, spot compression MLO, and ML view(s) were taken of the right breast. Prior study comparison: December 27, 2021, bilateral MG 3d screening mammo w/cad. November 27, 2020, bilateral MG 3d screening mammo w/cad. There are scattered fibroglandular densities. Anterior upper outer quadrant asymmetric density disperses on additional views. No significant new findings when compared with previous films. These results were verbally communicated with the patient and result sheet given to the patient on 12/31/21. ASSESSMENT: Incomplete: need additional imaging evaluation, BI-RAD 0 RECOMMENDATION: Ultrasound of the right breast. (zone A and B for clear nipple discharge)
--- NOTE | 2021-12-31 10:45 | USB ---
Reason for exam: additional evaluation requested from abnormal screening. History: Patient is postmenopausal. Family history of breast cancer in mother at age 68, breast cancer in maternal aunt at age 60, and breast cancer in paternal grandmother at age 80. Excisional biopsy of the right breast, 1982. US Breast Workup Limited RT Right limited breast ultrasound including focal area of concern, retroareolar and axilla demonstrates no cystic or solid lesion seen. Right breast scanned zone A and B. No duct ectasia. These results were verbally communicated with the patient and result sheet given to the patient on 12/31/21. ASSESSMENT: Benign, BI-RAD 2 RECOMMENDATION: Surgical consultation of the right breast. (To assess reported spontaneous clear nipple discharge) Patient requested to speak to Dr. German regarding surgical consultation. Return to routine screening mammogram schedule for both breasts.
== END | disposition home or self-care (01) ==
LOC: RADMAMWWP 08:12
PROVIDERS: ATTEND Family Medicine
DX: R92.8 Other abnormal and inconclusive findings on diagnostic imaging of breast (principal); Z78.0 Asymptomatic menopausal state; Z80.3 Family history of malignant neoplasm of breast
CPT/HCPCS: 77065; 76642; G0279; 77061

== ENCOUNTER → 2022-10-29 | Outpatient (CLI) | payer MEDICARE ==
--- NOTE | 2022-10-29 14:19 | US ---
EXAMINATION TYPE: US axilla LT DATE OF EXAM: 10/29/2022 COMPARISON: NONE CLINICAL HISTORY: [id number] PAIN IN UPPER LEFT ARM. Pt states pain in left axilla TECHNIQUE: Multiple grayscale and color Doppler images of the left axilla in the patient's region of pain was obtained. FINDINGS: No abnormality could be appreciated to account for pt's pain in left axilla. Normal appearing lymph node visualized No solid or cystic suspicious mass identified. IMPRESSION: No ultrasound evidence for abnormality that could account for patient's pain.
--- NOTE | 2022-10-29 14:21 | BD ---
EXAMINATION TYPE: Axial Bone Density DATE OF EXAM: 10/29/2022 COMPARISON: NONE CLINICAL HISTORY: 77 years year old Female. ICD-10 CODE: [id number] STRESS FRACTURE LEFT FOOT Height: 5'2 Weight: 186 FRAX RISK QUESTIONS: History of Fracture in Adulthood: Y Secondary Osteoporosis: RISK FACTORS HISTORY OF: Diet low in dairy products/other sources of calcium: y Postmenopausal woman: y MEDICATIONS: Thyroid Medications: Which medication: Synthroid How Lonyears Additional Medications: depression, blood pressure, Additional History: EXAM MEASUREMENTS: Bone mineral densitometry was performed using the [employer]. Bone mineral density as measured about the Lumbar spine is: ----- L1-L4(G/cm2): 1.214 T Score Values are as follows: ----- L1: -0.5 ----- L2: -0.1 ----- L3: 0.7 ----- L4: 0.69 ----- L1-L4: 0.3 Bone mineral density about the R hip (g/cm2): 0.849 Bone mineral density about the L hip (g/cm2): 0.780 T Score values are as follows: -----R Neck: -1.4 -----L Neck: -1.9 -----R Total: -0.8 -----L Total: -1.1 FRAX%s: The graph provided illustrates a 18.1% chance for a major osteoporotic fx and a 4.0% chance f or the hips probability for fx in 10 years time. IMPRESSION: Osteopenia (T Score between -2.5 and -1). There is slightly increased risk of fracture and the patient may be considered for treatment. Re-Screen 2-5 years. NOTE: T-SCORE=SD OF THE YOUNG ADULT MEAN.
== END | disposition home or self-care (01) ==
LOC: RADUSWWP 13:13
PROVIDERS: ATTEND Family Medicine
DX: M85.89 Other specified disorders of bone density and structure, multiple sites (principal); M84.375A Stress fracture, left foot, initial encounter for fracture; M79.622 Pain in left upper arm
CPT/HCPCS: 77080

== ENCOUNTER 2023-02-26 12:17 | Day surgery (SDC) | payer MEDICARE ==
[2023-02-24 14:49] VITALS: BMI 32.4
[2023-02-26] MEDS ORDERED: LACTATED RINGERS 1,000 ML IV SCH (12:31)
[2023-02-26] MEDS ORDERED: LIDOCAINE 1% (10MG/ML) FOR IV START INTRADERMA PRN (12:31)
[2023-02-26 12:55] VITALS: TEMP 97.8
[2023-02-26] MEDS ORDERED: PROPOFOL 10 MG/ML 20 ML VIAL IV ONE (13:18)
--- NOTE | 2023-02-26 13:25 | P.PCN ---
Date of Procedure: 02/26/23 Procedure(s) Performed: BRIEF HISTORY: Patient is a 78-year-old, pleasant, white female scheduled for an upper endoscopy as a part of evaluationof GERD, chronic persistent nausea for the last 1 month duration. PROCEDURE PERFORMED: Esophagogastroduodenoscopy with biopsy. PREOPERATIVE DIAGNOSIS: GERD/nausea vomiting duration. IV sedation per anesthesia. PROCEDURE: After informed consent was obtained, the patient was brought into the endoscopy unit. IV sedation was administered by Anesthesia under continuous monitoring. Initially the Olympus GIF-140 video endoscope was inserted into the mouth. Esophagus intubated without any difficulty. It was gradually advanced into the stomach and duodenum and carefully examined. The bulb and the second part of the duodenum appeared normal. The scope at this time was withdrawn to the stomach, adequately insufflated with air, and upon careful examination, mucosa of the antrum, and mild mottling of the mucosa consistent with gastritis and biopsies were done from this area. Mucosa of the body, cardia and the fundus appeared normal. The scope was then withdrawn into the esophagus. Small hiatal hernia noted. The GE junction was located at 36 cm from the incisors. There were 2 superficial erosions at the GE junction consistent with LA grade B reflux esophagitis. Rest of esophagus appeared normal and the patient tolerated the procedure well. IMPRESSION: 1. Mild antral gastritis. 2. Linear erosions in the distal esophagus consistent with LA grade B reflux esophagitis and small hiatal hernia. RECOMMENDATIONS: The findings of this examination were discussed with the patient as well as her family. Follow with biopsy results. She was advised to increase omeprazole to 20 mg twice daily for 8 weeks and follow antireflux measures..
[2023-02-26 13:33] VITALS: RESP 16
[2023-02-26 13:49] VITALS: BP 133/85; PULSE 69
== END 2023-02-26 14:28 | disposition home or self-care (01) ==
LOC: ORWHC2ENDO 12:17
PROVIDERS: ATTEND Internal Medicine Gastroenterology
DX: K29.50 Unspecified chronic gastritis without bleeding (principal); K21.00 Gastro-esophageal reflux disease with esophagitis, without bleeding; K44.9 Diaphragmatic hernia without obstruction or gangrene; I10 Essential (primary) hypertension; E78.5 Hyperlipidemia, unspecified; I48.91 Unspecified atrial fibrillation; M10.9 Gout, unspecified; M19.90 Unspecified osteoarthritis, unspecified site; Z79.01 Long term (current) use of anticoagulants; Z79.899 Other long term (current) drug therapy
CPT/HCPCS: 88305; 43239; J2704

== ENCOUNTER → 2023-10-10 | Outpatient (CLI) | payer MEDICARE ==
--- NOTE | 2023-10-10 15:28 | US ---
EXAMINATION TYPE: US kidneys/renal and bladder DATE OF EXAM: 10/10/2023 COMPARISON: 06/15/2023 CLINICAL INDICATION: Female, 78 years old with history of N18.31 CHRONIC KIDNEY DISEASE, STAGE 3A; ab normal labs EXAM MEASUREMENTS: Right Kidney: 8.9x4.8x4.8 cm Left Kidney: 8.9x4.5x4.2 cm Right Kidney: small upper pole cystic area: 0.8x0.9x0.8cm cortical thinning. Cortical medullary diff erentiation maintained. Left Kidney: No hydronephrosis or masses seen , cortical thinning. Cortical medullary differentiatio n maintained. Bladder: wnl Bilateral Jets seen: Yes There is no evidence for hydronephrosis at this point in time. No nephrolithiasis is seen. The urin paulette bladder is anechoic. Bilateral ureteral jets are seen. bilateral kidneys appear heterogenous, exam slightly limited by bowel and body habitus IMPRESSION: 1. No evidence for obstructive uropathy. 2. Medical renal disease with cortical thinning, cortical medullary differentiation is maintained..
== END | disposition home or self-care (01) ==
LOC: RADUSWWP 14:45
PROVIDERS: ATTEND Internal Medicine
DX: N18.31 Chronic kidney disease, stage 3a (principal); R79.9 Abnormal finding of blood chemistry, unspecified
CPT/HCPCS: 76770

== ENCOUNTER → 2024-01-02 | Outpatient (CLI) | payer MEDICARE ==
--- NOTE | 2024-01-05 08:15 | MM ---
Reason for Exam: Screening (asymptomatic). Last screening mammogram was performed 12 month(s) ago. Patient History: Menarche at age 14. First Full-Term at age 26. Left ovary removed at age 39. Right ovary removed at age 39. Hysterectomy at age 39. Postmenopausal. 1982, Excisional Biopsy on the Right side. Paternal grandmother had breast cancer, age 80. Maternal aunt had breast cancer, age 60. Mother had breast cancer, age 68. Risk Values: Maria Teresa 5 year model risk: 4.0%. NCI Lifetime model risk: 8.0%. Prior Study Comparison: 12/27/2021 Bilateral Screening Mammogram, [facility]. 12/31/2021 Right Diagnostic Mammogram, [facility]. 12/31/2022 Bilateral MG 3D screening mammo w/cad, [facility]. Tissue Density: There are scattered fibroglandular densities. Findings: Analyzed By CAD. There is no suspicious group of microcalcifications or new suspicious mass. Overall Assessment: Negative, BI-RAD 1 Management: Screening Mammogram of both breasts in [address] [facility] will attempt to contact patient to return for supplemental views and ultrasound if indicated. Patient should continue monthly self-breast exams. A clinical breast exam by your physician is recommended on an annual basis. This exam should not preclude additional follow-up of suspicious palpable abnormalities. Note on Maria Teresa scores and lifetime risk: 1. A Maria Teresa score greater than 3% is considered moderate risk. If this is the case, consider specialist referral to assess eligibility for a risk reducing agent. 2. If overall lifetime risk for the development of breast cancer is 20% or higher, the patient may qualify for future screening with alternating mammogram and breast MRI. Electronically signed and approved by: Beka Loyd DO
== END | disposition home or self-care (01) ==
LOC: RADMAMWWP 13:00
PROVIDERS: ATTEND Internal Medicine
DX: Z12.31 Encounter for screening mammogram for malignant neoplasm of breast (principal); Z78.0 Asymptomatic menopausal state; Z80.3 Family history of malignant neoplasm of breast
CPT/HCPCS: 77063; 77067

== ENCOUNTER 2024-01-10 22:31 | Emergency (ER) | payer MEDICARE ==
[2024-01-10 22:58] VITALS: TEMP 98.2
[2024-01-10] MEDS: SODIUM CHLORIDE 0.9% 1,000 ML IV STA (23:48)
[2024-01-10] MEDS: ACETAMINOPHEN TAB 500 MG TAB PO STA (23:49)
[2024-01-10] MEDS: ONDANSETRON 4 MG/2 ML VIAL IVP STA (23:49)
[2024-01-10 23:52] LABS: Basophils % (A) 1 %; Eosinophils # (A) 0.3 k/uL (0-0.7); Eosinophils % (A) 3 %; HGB 13.6 gm/dL (11.4-16.0); Lymphocytes # (A) 2.5 k/uL (1.0-4.8); Lymphocytes % (A) 24 %; MCH 28.4 pg (25.0-35.0); MCHC 33.3 g/dL (31.0-37.0); MCV 85.4 fL (80.0-100.0); Mean Platelet Volume 7.8; Monocytes # (A) 0.8 k/uL (0-1.0); Monocytes % (A) 8 %; Neutrophils # (A) 6.3 k/uL (1.3-7.7); Neutrophils % (A) 61 %; Platelet Count 215 k/uL (150-450); RDW 14.7 % (11.5-15.5); WBC 10.3 k/uL (3.8-10.6)
[2024-01-10 23:53] LABS: Basophils # (A) 0.1 k/uL (0-0.2)
[2024-01-11 00:06] LABS: ALT 19 U/L (4-34); AST 31 U/L (14-36); African American GFR (CKD) 57 (>60 ml/min/1.73 sqM); Albumin 4.2 g/dL (3.5-5.0); Alkaline Phosphatase 121 U/L (38-126); Amylase 73 U/L (30-110); Anion Gap 8 mmol/L; Blood Urea Nitrogen 27 mg/dL (7-17); Calcium 9.3 mg/dL (8.4-10.2); Carbon Dioxide 23 mmol/L (22-30); Chloride 99 mmol/L (98-107); Glucose 101 mg/dL (74-99); Lipase 149 U/L (23-300); Non-African American GFR(CKD) 50 (>60 ml/min/1.73 sqM); Sodium 130 mmol/L (137-145); Total Bilirubin 0.6 mg/dL (0.2-1.3); Total Protein 7.1 g/dL (6.3-8.2)
[2024-01-11 00:11] LABS: Potassium 5.7 mmol/L (3.5-5.1)
[2024-01-11 00:14] LABS: Appearance,Urine Cloudy (Clear); Bacteria,Urine Many /hpf; Bilirubin,Urine Negative (Negative); Blood,Urine Trace (Negative); Color,Urine Yellow; Glucose,Urine (UA) Trace (Negative); Ketones,Urine Negative (Negative); Leukocyte Esterase,Urine Large (Negative); Nitrite,Urine Negative (Negative); Protein,Urine Negative (Negative); RBC,Urine 6 /hpf (0-5); Urobilinogen,Urine <2.0 mg/dL (<2.0); WBC,Urine >182 /hpf (0-5)
[2024-01-11] MEDS: MORPHINE SULFATE 2 MG/ML SYRINGE IVP ONE (00:47)
--- NOTE | 2024-01-11 01:00 | CT ---
EXAM: CT Abdomen and Pelvis Without Intravenous Contrast CLINICAL HISTORY: ITS.REASON CT Reason: RLQ pain hx appy r/o stone TECHNIQUE: Axial computed tomography images of the abdomen and pelvis without intravenous contrast. CTDI is 13.6 mGy and DLP is 774 mGy-cm. This CT exam was performed using one or more of the following dose reduction techniques: automated exposure control, adjustment of the mA and/or kV according to patient size, and/or use of iterative reconstruction technique. COMPARISON: No relevant prior studies available. FINDINGS: Lung bases: Unremarkable. No mass. No consolidation. Mediastinum: Small hiatal hernia. ABDOMEN: Liver: Unremarkable. Gallbladder and bile ducts: Unremarkable. No calcified stones. No ductal dilation. Pancreas: Unremarkable. No ductal dilation. Spleen: Unremarkable. No splenomegaly. Adrenals: Unremarkable. No mass. Kidneys and ureters: Unremarkable. No hydronephrosis or nephrolithiasis. Stomach and bowel: Diverticulosis, without acute diverticulitis. No bowel obstruction. No free air. PELVIS: Appendix: No findings to suggest acute appendicitis. Bladder: Unremarkable. No stones. Reproductive: Unremarkable as visualized. ABDOMEN and PELVIS: Intraperitoneal space: See above. Bones/joints: Degenerative changes of the spine. No acute fracture. No dislocation. Soft tissues: Unremarkable. Vasculature: Atherosclerotic changes of the aorta. No abdominal aortic aneurysm. Lymph nodes: Unremarkable. No enlarged lymph nodes. IMPRESSION: 1. No hydronephrosis or nephrolithiasis. 2. Small hiatal hernia. 3. Diverticulosis, without acute diverticulitis. No bowel obstruction. No free air.
--- NOTE | 2024-01-11 01:17 | ED ---
Abdominal Pain HPI - General Chief Complaint: Abdominal Pain Stated Complaint: abd pain Time Seen by Provider: 01/10/24 22:44 Source: patient Mode of arrival: ambulatory Limitations: no limitations - History of Present Illness Initial Comments: 78-year-old female with a past medical history significant for recurrent UTIs presenting to the ED with a chief complaint of right lower quadrant pain. Patient states today started to experience some pain in the right lower quadrant. Additionally notes over the past few days has had some urinary frequency however denies dysuria or hematuria. No changes in bowel or bladder habits. Denies flank pain. No chest pain or shortness of breath. No fever or chills. No other complaints at this time. - Related Data Home Medications Medication Instructions Recorded Confirmed DULoxetine HCL [Cymbalta] 60 mg PO BID 10/14/17 02/24/23 Apixaban [Eliquis] 5 mg PO BID 12/01/17 02/24/23 Flecainide Acetate [Tambocor] 100 mg PO Q12HR 07/28/18 02/24/23 Gabapentin 600 mg PO HS 02/24/23 02/24/23 Levothyroxine Sodium [Synthroid] 88 mcg PO DAILY 02/24/23 02/24/23 Losartan [Cozaar] 25 mg PO HS 02/24/23 02/24/23 Rosuvastatin Calcium 40 mg PO HS 02/24/23 02/24/23 Previous Rx's Medication Instructions Recorded Amoxic-Pot Clav 875-125Mg 1 tab PO Q12HR #20 tab 06/15/23 [Augmentin 875-125] Ondansetron Odt [Zofran Odt] 4 mg PO Q8HR PRN #10 tab 06/15/23 Cephalexin [Keflex] 500 mg PO Q6HR 7 Days #28 cap 01/11/24 Allergies Allergy/AdvReac Type Severity Reaction Status Date / Time estradiol Allergy Rash/Hives Verified 01/10/24 22:37 Sulfa (Sulfonamide Allergy Rash/Hives Verified 01/10/24 22:37 Antibiotics) Review of Systems ROS Statement: Those systems with pertinent positive or pertinent negative responses have been documented in the HPI. ROS Other: All systems not noted in ROS Statement are negative. Past Medical History Past Medical History: Atrial Fibrillation, CVA/TIA, GERD/Reflux, Hyperlipidemia, Osteoarthritis (OA), Skin Disorder, Thyroid Disorder Additional Past Medical History / Comment(s): TIA (2014), Psoriatic Arthritis., gout., hypothyroid, past hx of GERD with hiatal hernia repair,. Psoriasis., Varicose veins., Shields's cyst on Lt knee, chronic constipation, Gas., chronic UTI- currently has UTI and taking Macrobid (Dr. Veal), hx of blood in urine. History of Any Multi-Drug Resistant Organisms: None Reported Past Surgical History: Appendectomy, Cholecystectomy, Hernia Repair, Hysterectomy, Joint Replacement, Orthopedic Surgery Additional Past Surgical History / Comment(s): Lap Mario Fundoplication (02/2018), EGDs/colonoscopy, Total R knee arthroplasty, R shoulder rotator cuff repair, ORIF R foot fx x2 surgeries, surgery for ruptured ovarian cyst., TotaL Left Knee. Past Anesthesia/Blood Transfusion Reactions: No Reported Reaction Additional Past Anesthesia/Blood Transfusion Reaction / Comment(s): . Past Psychological History: Depression Smoking Status: Never smoker Past Alcohol Use History: None Reported Past Drug Use History: None Reported - Past Family History Mother Family Medical History: Cancer Additional Family Medical History / Comment(s): MOTHER HAD BREAST CANCER. Father Family Medical History: Cancer Additional Family Medical History / Comment(s): FATHER HAD MELANOMA Sister(s) Family Medical History: Cancer Additional Family Medical History / Comment(s): ONE SISTER HAD PANCREATIC CANCER. Another sister had bowel cancer. General Exam Limitations: no limitations General appearance: alert, in no apparent distress Eye exam: Present: normal appearance Neck exam: Present: normal inspection Respiratory exam: Present: normal lung sounds bilaterally Cardiovascular Exam: Present: regular rate GI/Abdominal exam: Present: soft (Some tenderness to palpation in the suprapubic/right lower quadrant. No rebound guarding or rigidity. No tenderness to percussion of CVA bilaterally.) Neurological exam: Present: alert, oriented X3 Skin exam: Present: warm, dry Course Vital Signs 01/10/24 22:34 Temperature 98.2 F Pulse Rate 69 Respiratory 18 Rate Blood Pressure 143/79 O2 Sat by Pulse 99 Oximetry Medical Decision Making - Medical Decision Making Was pt. sent in by a medical professional or institution (, PA, HRIS SPECIALIST, urgent c are, hospital, or skilled nursing...) When possible be specific @ -No Did you speak to anyone other than the patient for history (EMS, parent, family, police, friend...)? What history was obtained from this source @ -No Did you review nursing and triage notes (agree or disagree)? Why? @ -I reviewed and agree with nursing and triage notes Were old charts reviewed (outside hosp., previous admission, EMS record, old EKG, old radiological studies, urgent care reports/EKG's, skilled nursing records)? Report findings @ -No old charts were reviewed Differential Diagnosis (chest pain, altered mental status, abdominal pain women, abdominal pain men, vaginal bleeding, weakness, fever, dyspnea, syncope, headache, dizziness, GI bleed, back pain, seizure, CVA, palpatations, mental health, musculoskeletal)? @ -Differential Abdominal Pain Women: Appendicitis, Cholecystitis, diverticulosis, ischemic bowel, pancreatitis, hepatitis, UTI, gastroenteritis, AAA, incarcerated hernia, bowel obstruction, constipation, inflammatory bowel, hepatitis, peptic ulcer disease, splenic infarction, perforated viscus, vulvitis, ovarian torsion, PID, kidney stone, placenta abruption, this is not meant to be an all-inclusive list EKG interpreted by me (3pts min.). @ -None X-rays interpreted by me (1pt min.). @ -None done CT interpreted by me (1pt min.). @ -CT scan interpreted me showing no evidence of acute finding. U/S interpreted by me (1pt. min.). @ -None done What testing was considered but not performed or refused? (CT, X-rays, U/S, labs)? Why? @ -None What meds were considered but not given or refused? Why? @ -None Did you discuss the management of the patient with other professionals (professionals i.e. , PA, HRIS SPECIALIST, lab, RT, psych nurse, social work msw, instructional resource teacher, teacher, air intelligence officer, telephonic nurse case manager)? Give summary @ -No Was smoking cessation discussed for >3mins.? @ -No Was critical care preformed (if so, how long)? @ -No Were there social determinants of health that impacted care today? How? (Homelessness, low income, unemployed, alcoholism, drug addiction, transportation, low edu. Level, literacy, decrease access to med. care, halfway, rehab)? @ -No Was there de-escalation of care discussed even if they declined (Discuss DNR or withdrawal of care, Hospice)? DNR status @ -No What co-morbidities impacted this encounter? (DM, HTN, Smoking, COPD, CAD, Cancer, CVA, ARF, Chemo, Hep., AIDS, mental health diagnosis, sleep apnea, mo rbid obesity)? @ -Recurrent UTIs Was patient admitted / discharged? Hospital course, mention meds given and route, prescriptions, significant lab abnormalities, going to OR and other pertinent info. @ -Discharge 78-year-old female presents to the ED with onset of right lower abdominal pain today and notes some urinary frequency over the past few days as well. On exam there is no CVA tenderness to percussion bilaterally. Patient denies any flank pain as well. Denied fever or chills. At this time vital signs stable and afebrile. Laboratory studies reviewed and are largely unremarkable. UA however does show evidence of infection large leukocyte Estrace, greater than 182 white blood cells, moderate white blood cell clumps, and many bacteria. Potassium did seem elevated at 5.7 however this was hemolyzed. Patient provided a dose of ceftriaxone here in the ED and discharged home with starter packs of Tylenol 3 and Keflex. Provided prescription for Keflex as well. Urine culture was sent. Discussed return precautions with patient and family who verbalized agreement. Undiagnosed new problem with uncertain prognosis? @ -No Drug Therapy requiring intensive monitoring for toxicity (Heparin, Nitro, Insulin, Cardizem)? @ -No Were any procedures done? @ -No Diagnosis/symptom? @ -Urinary tract infection Acute, or Chronic, or Acute on Chronic? @ -Acute Uncomplicated (without systemic symptoms) or Complicated (systemic symptoms)? @ -Uncomplicated Side effects of treatment? @ -No Exacerbation, Progression, or Severe Exacerbation? @ -No Poses a threat to life or bodily function? How? (Chest pain, [place], [place], pneumonia, PE, COPD, DKA, ARF, appy, cholecystitis, CVA, Diverticulitis, Homicidal, Suicidal, threat to staff... and all critical care pts) @ -No - Lab Data Result diagrams: 01/10/24 23:27 01/10/24 23:27 Lab Results 01/10/24 01/10/24 01/10/24 Range/Units 23:27 23:27 23:27 WBC 10.3 (3.8-10.6) k/uL RBC 4.80 (3.80-5.40) m/uL Hgb 13.6 (11.4-16.0) gm/dL Hct 41.0 (34.0-46.0) % MCV 85.4 (80.0-100.0) fL MCH 28.4 (25.0-35.0) pg MCHC 33.3 (31.0-37.0) g/dL RDW 14.7 (11.5-15.5) % Plt Count 215 (150-450) k/uL MPV 7.8 Neutrophils % 61 % Lymphocytes % 24 % Monocytes % 8 % Eosinophils % 3 % Basophils % 1 % Neutrophils # 6.3 (1.3-7.7) k/uL Lymphocytes # 2.5 (1.0-4.8) k/uL Monocytes # 0.8 (0-1.0) k/uL Eosinophils # 0.3 (0-0.7) k/uL Basophils # 0.1 (0-0.2) k/uL Sodium 130 L (137-145) mmol/L Potassium 5.7 H (3.5-5.1) mmol/L Chloride 99 (98-107) mmol/L Carbon Dioxide 23 (22-30) mmol/L Anion Gap 8 mmol/L BUN 27 H (7-17) mg/dL Creatinine 1.09 H (0.52-1.04) mg/dL Est GFR (CKD-EPI)AfAm 57 (>60 ml/min/1.73 sqM) Est GFR (CKD-EPI)NonAf 50 (>60 ml/min/1.73 sqM) Glucose 101 H (74-99) mg/dL Calcium 9.3 (8.4-10.2) mg/dL Total Bilirubin 0.6 (0.2-1.3) mg/dL AST 31 (14-36) U/L ALT 19 (4-34) U/L Alkaline Phosphatase 121 (38-126) U/L Total Protein 7.1 (6.3-8.2) g/dL Albumin 4.2 (3.5-5.0) g/dL Amylase 73 (30-110) U/L Lipase 149 (23-300) U/L Urine Color Yellow Urine Appearance Cloudy H (Clear) Urine pH 6.0 (5.0-8.0) Ur Specific [place] 1.010 (1.001-1.035) Urine Protein Negative (Negative) Urine Glucose (UA) Trace H (Negative) Urine Ketones Negative (Negative) Urine Blood Trace H (Negative) Urine Nitrite Negative (Negative) Urine Bilirubin Negative (Negative) Urine Urobilinogen <2.0 (<2.0) mg/dL Ur Leukocyte Esterase Large H (Negative) Urine RBC 6 H (0-5) /hpf Urine WBC >182 H (0-5) /hpf Urine WBC Clumps Moderate H (None) /hpf Urine Bacteria Many H (None) /hpf Disposition Clinical Impression: UTI (urinary tract infection) Disposition: HOME SELF-CARE Condition: Good Instructions (If sedation given, give patient instructions): Urinary Tract Infection in Women (ED) Additional Instructions: Please return to the Emergency Department if symptoms worsen or any other concerns. Please follow-up with your PCP. Prescriptions: Cephalexin [Keflex] 500 mg PO Q6HR 7 Days #28 cap Is patient prescribed a controlled substance at d/c from ED?: No Referrals: Brook Fiore MD [Primary Care Provider] - 1-2 days Time of Disposition: 01:00
[2024-01-11] MEDS: cefTRIAXone IN SWFI 1,000 MG/10 ML SYRINGE IVP STA (01:22)
[2024-01-11] MEDS: ACET/COD 300 MG/30 MG STARTER PACK 6 TAB BTL PO STA (01:22)
[2024-01-11] MEDS: CEPHALEXIN 500MG STARTER PACK 4 CAP BTL PO STA (01:22)
[2024-01-11 01:56] VITALS: BP 146/72; PULSE 70; RESP 16
== END 2024-01-11 01:41 | disposition home or self-care (01) ==
LOC: EC 22:31
DX: N39.0 Urinary tract infection, site not specified (principal); K44.9 Diaphragmatic hernia without obstruction or gangrene; K57.90 Diverticulosis of intestine, part unspecified, without perforation or abscess without bleeding; I48.91 Unspecified atrial fibrillation; E78.5 Hyperlipidemia, unspecified; E07.9 Disorder of thyroid, unspecified; F32.A Depression, unspecified; Z79.01 Long term (current) use of anticoagulants; Z79.890 Hormone replacement therapy; Z79.899 Other long term (current) drug therapy; Z88.2 Allergy status to sulfonamides; Z88.8 Allergy status to other drugs, medicaments and biological substances; Z86.73 Personal history of transient ischemic attack (TIA), and cerebral infarction without residual deficits
CPT/HCPCS: 36415; 80053; 82150; 83690; 85025; 99284; 96374; 96361; 96375 ×2; J2405; 74176; 81001; 87086

== ENCOUNTER → 2024-02-12 | Outpatient (CLI) | payer MEDICARE ==
--- NOTE | 2024-02-12 17:49 | XR ---
PROCEDURE: XR lumbar spine 2 or 3V - 3V DATE AND TIME: 02/12/2024 5:02 PM CLINICAL INDICATION: PH; M47.816 Lumbar spondylosis TECHNIQUE: Department protocol COMPARISON: None FINDINGS / IMPRESSION: There is no fracture. No focal skeletal lesion. There are markedly advanced degenerative facet changes at all lumbar levels, with relatively mild deg enerative disc changes at all levels. Lateral view shows 3 mm retrolisthesis of L4 with respect to L3 , and 6 mm retrolisthesis of L5 with respect to L4. Moderate degenerative joint changes seen bilaterally at the sacroiliac joints.
--- NOTE | 2024-02-12 17:58 | XR ---
PROCEDURE: XR sacroiliac joint comp BILAT - 3V DATE AND TIME: 02/12/2024 5:02 PM CLINICAL INDICATION: PHH; M47.816 Lumbar spondylosis TECHNIQUE: Department protocol COMPARISON: None FINDINGS / IMPRESSION: No fracture or malalignment. No focal skeletal lesion. There are bilateral moderate-marked osteoarthrosis changes at the sacroiliac joints.
== END | disposition home or self-care (01) ==
LOC: RADXRMAIN 16:16
PROVIDERS: ATTEND Internal Medicine
DX: M47.816 Spondylosis without myelopathy or radiculopathy, lumbar region (principal); M51.36 Other intervertebral disc degeneration, lumbar region; M43.16 Spondylolisthesis, lumbar region; M46.1 Sacroiliitis, not elsewhere classified
CPT/HCPCS: 72100; 72202

== ENCOUNTER → 2024-03-02 | Outpatient (CLI) | payer MEDICARE ==
--- NOTE | 2024-03-02 18:52 | US ---
EXAMINATION TYPE: US abdomen complete DATE OF EXAM: 03/02/2024 COMPARISON: CT 01/11/2024 CLINICAL INDICATION: Female, 79 years old with history of R10.31 RIGHT LOWER QUADRANT PAIN; RLQ pain x 2 months. Hx cholecystectomy, appendectomy. TECHNIQUE: Multiple sonographic images of the abdomen are obtained. FINDINGS: EXAM MEASUREMENTS: Liver Length: 15.0 cm Gallbladder Wall: Surgically absent CBD: 0.82 cm Spleen: 10.0 cm Right Kidney: 9.3 x 4.8 x 5.0 cm Left Kidney: 9.6 x 4.7 x 4.6 cm [employer] NOTES: Limited due to gas. Pancreas: Obscured Liver: Appears coarse with increased echogenicity. Gallbladder: Surgically absent Evidence for sonographic Jennings's sign: No CBD: Appears wnl post-cholecystectomy Spleen: Vessel little appear prominent/calcified Right Kidney: Anechoic area seen upper pole: 1.2 x 1.5 x 0.9 cm. Left Kidney: No hydronephrosis or masses seen Upper IVC: Appears wnl Abd Aorta: Limited, proximal segment appears ectatic. Iliacs were obscured. IMPRESSION: 1. No evidence for acute process. 2. Hepatic steatosis. 3. Right simple appearing renal cysts.
--- NOTE | 2024-03-02 19:08 | US ---
EXAMINATION TYPE: US pelvic limited DATE OF EXAM: 03/02/2024 COMPARISON: CT 01/11/2024 CLINICAL INDICATION: Female, 79 years old with history of R10.31 Right lower quadrant pain; Complete hysterectomy 15 years ago. RLQ pain x 2 months. No bleeding. . TECHNIQUE: Transabdominal (TA). Transabdominal sonographic images of the pelvis were acquired. Date of LMP: Unknown per patient EXAM MEASUREMENTS: Uterus: Surgically absent Endometrial Stripe: Surgically absent Right Ovary: Surgically absent Left Ovary: Surgically absent 1. Uterus: Surgically absent 2. Endometrium: Surgically absent 3. Right Ovary: Surgically absent 4. Left Ovary: Surgically absent 5. Bilateral Adnexa: Appears wnl 6. Posterior cul-de-sac: Appears wnl IMPRESSION: No evidence for acute process. No dilated ducts, fluid collections or masses.
== END | disposition home or self-care (01) ==
LOC: RADUSWWP 06:53
PROVIDERS: ATTEND Internal Medicine Gastroenterology
DX: K76.0 Fatty (change of) liver, not elsewhere classified (principal); N28.1 Cyst of kidney, acquired; Z90.49 Acquired absence of other specified parts of digestive tract
CPT/HCPCS: 76700; 76857

== ENCOUNTER → 2024-03-04 | Outpatient (CLI) | payer MEDICARE ==
--- NOTE | 2024-03-05 06:01 | MR ---
EXAMINATION TYPE: MR lumbar spine wo con DATE OF EXAM: 03/04/2024 COMPARISON: NONE HISTORY: Pain in rt groin area, spondylosis without myelopathy TECHNIQUE: Multiplanar, multisequence imaging of the lumbar spine is performed without IV contrast. FINDINGS: Sagittal images of the lumbar spine show vertebral body height to appear satisfactory. Ther e is grade 1 anterolisthesis of L3 on L4 and L4 on L5. Multilevel disc desiccation. Mild disc space n arrowing at L3-L4 level. The conus medullaris is normal in position and signal ending at T12-L1 level . The bone marrow signal intensity is within normal limits. Axial images at T12-L1 through L2-L3 levels show mild facet arthropathy bilaterally. Spinal canal is preserved. Axial images at L3-L4 level shows moderate facet arthropathy and ligamentum flavum hypertrophy effaci ng the bilateral posterolateral thecal sac. There is spondylolisthesis seen. There is mild left-sided anterior inferior neural foraminal narrowing. Axial images at L4-L5 level show spondylolisthesis with moderate to advanced facet arthropathy ligame nt flavum hypertrophy slightly effacing the right posterolateral thecal sac. There is mild broad-base d posterior disc protrusion. Bilateral neural foramina are patent. Axial images at L5-S1 level show mild to moderate facet arthropathy bilaterally. Increased epidural f at is noted. Bilateral neural foramen are patent. Paraspinal muscle bulk is maintained. Cortical thinning in both kidneys is seen. IMPRESSION: Multilevel spondylolisthesis and degenerative change in the lumbar spine as detailed irene khoury
== END | disposition home or self-care (01) ==
LOC: RADMRIMAIN 14:11
PROVIDERS: ATTEND Internal Medicine
DX: M47.816 Spondylosis without myelopathy or radiculopathy, lumbar region (principal); M43.16 Spondylolisthesis, lumbar region; M99.73 Connective tissue and disc stenosis of intervertebral foramina of lumbar region
CPT/HCPCS: 72148

== ENCOUNTER → 2024-03-23 | Outpatient (CLI) | payer MEDICARE ==
--- NOTE | 2024-03-23 09:53 | MR ---
EXAMINATION TYPE: MR abdomen wo/w con DATE OF EXAM: 03/23/2024 8:20 AM CLINICAL INDICATION:Female, 79 years old with history of R10.31 RLQ pain; PHH, RLQ pain. COMPARISON: CT scan abdomen from 01/11/2024 TECHNIQUE: Multiplanar multi-sequence imaging was performed without contrast. Post contrast imaging was performed. Post IV contrast subtraction images were also submitted for review. IV Contrast: 8.5 cc Gadavist FINDINGS: LOWER CHEST: No gross irregularity. ABDOMEN Liver: No evidence for cirrhosis. Signal dropout on chemical shift out of phase imaging. Subcentimete r scattered high T2 signal probable simple cyst. Gallbladder and Bile ducts: No evidence for ductal dilation, or biliary stricture or evidence of chol edocholithiasis. The gallbladder is surgically absent Pancreas: No ductal dilation. No evidence for solid mass. Spleen: Normal for size. Adrenal glands: Unremarkable. Kidneys: No evidence for obstructive uropathy. No suspicious renal masses. Subcentimeter high T2 sign al renal cortical cyst. Stomach and Bowel: No evidence for bowel wall thickening or evidence for obstruction. Large amount st ool seen throughout the colon. Small hiatal hernia is present. Retroperitoneum/Peritoneum: No evidence of pneumoperitoneum or free fluid. Vasculature: No aortic aneurysm. Slitlike appearance of the inferior vena cava. Musculoskeletal: The osseous structures appear intact. Lymph Nodes: No gross evidence for lymphadenopathy. Abdominal wall: Unremarkable. IMPRESSION: 1. No evidence for acute abdominal process. The pelvis is not the [id number]. 2. Large stool burden throughout the colon. 3. Hepatic steatosis 4. Bilateral simple renal and hepatic cysts. 5. Small hiatal hernia. 6. Slitlike appearance of the inferior vena cava secondary to patient's volume status.
== END | disposition home or self-care (01) ==
LOC: RADMRIMAIN 06:50
PROVIDERS: ATTEND Internal Medicine Gastroenterology
DX: N28.1 Cyst of kidney, acquired (principal); K76.0 Fatty (change of) liver, not elsewhere classified; K76.89 Other specified diseases of liver; K44.9 Diaphragmatic hernia without obstruction or gangrene
CPT/HCPCS: 74183; A9585

== ENCOUNTER → 2024-03-26 | Outpatient (CLI) | payer MEDICARE ==
--- NOTE | 2024-03-27 09:28 | MR ---
EXAMINATION TYPE: MR pelvis wo/w con DATE OF EXAM: 03/26/2024 8:30 AM CLINICAL INDICATION:Female, 79 years old with history of R10.31 RIGHT LOWER QUADRANT PAIN; PHH, RLQ p ain. Hx of hysterectomy COMPARISON: 03/23/2024 TECHNIQUE: Triplane multisequence imaging was performed of the pelvis. IV Contrast: 8.5 cc Gadobutrol FINDINGS: Reproductive: Vagina: Unremarkable. Uterus: The uterus is surgically absent. Ovaries: The ovaries are not definitively visualized may be surgically absent Bladder: Unremarkable. Bowel: Unremarkable as visualized. Peritoneum: No free fluid in the abdomen, no abnormal postcontrast enhancement Lymph nodes: No evidence of adenopathy. Vasculature: Unremarkable. Musculoskeletal: Bone marrow signal is within normal signal intensity. Abdominal wall/soft tissues: Unremarkable. IMPRESSION No evidence for organizing fluid collection or mass. No obvious acute process visualized.
== END | disposition home or self-care (01) ==
LOC: RADMRIMAIN 06:49
PROVIDERS: ATTEND Internal Medicine Gastroenterology
DX: R10.31 Right lower quadrant pain (principal)
CPT/HCPCS: 72197; A9585

== ENCOUNTER 2024-04-23 09:29 | Day surgery (SDC) | payer MEDICARE ==
[2024-04-23] MEDS: LACTATED RINGERS 1,000 ML IV SCH (10:01)
[2024-04-23] MEDS ORDERED: PROPOFOL 10 MG/ML 20 ML VIAL IV ONE (10:08)
--- NOTE | 2024-04-23 10:33 | P.PCN ---
Date of Procedure: 04/23/24 Procedure(s) Performed: Brief history: Patient is a pleasant scheduled for an elective upper endoscopy as well as colonoscopy as a part of evaluation of GERD and intermittent nausea/abdominal pain and change in bowel habits for the last several months duration. Procedure performed: Esophagogastroduodenoscopy with biopsy Colonoscopy Preoperative diagnosis: Abdominal pain/intermittent nausea vomiting Change in bowel habits Anesthesia: MAC Procedure: After informed consent was obtained from the patient was brought into the endoscopy unit and IV sedation was administered by anesthesia under continuous monitoring. Initially upper endoscopy was done. The Olympus GF 160 video endoscope was inserted inserted into the mouth and esophagus intubated without any difficulty and was gradually advanced into the stomach and duodenum and carefully examined. The bulb and second part of the duodenum appeared normal. The scope was then withdrawn into the stomach adequately insufflated with air and upon careful examination the antrum had patchy areas of erythema consistent with gastritis and biopsies were done from this area. Mucosa of the body, cardia and fundus appeared normal. The scope was then withdrawn into the esophagus. Small hiatal hernia noted. The GE junction was located at 35 cm to the incisors. It appeared regular 2 superficial erosions consistent with LA grade B reflux esophagitis. Rest of the esophagus appeared normal. Patient tolerated the procedure well. At this time the patient continued to remain sedation. Initial digital rectal examination was normal. Olympus CF 160 video colonoscope was then inserted into the rectum and gradually advanced to the cecum without any difficulty. Careful examination was performed as the scope was gradually being withdrawn. The prep was excellent. The cecum, ascending colon, transverse colon, descending colon, sigmoid colon and rectum appeared normal. Scattered sigmoid diverticulosis retroflexion was performed in the rectum and no lesions were noted. Patient tolerated the procedure well. Impression: 1. Upper endoscopy revealed LA grade B reflux esophagitis, small hiatal hernia and mild antral gastritis 2. Colonoscopy revealed scattered sigmoid diverticulosis but no evidence of colorectal neoplasia Recommendations: Findings of this examination were discussed with the patient as well as her family. She was advised to follow-up with the biopsy results. Continue with high-fiber diet and fiber supplements on a regular basis. Follow-up in the office in 3 to 4 weeks.
[2024-04-23 10:34] VITALS: RESP 18; TEMP 97.7
[2024-04-23 11:30] VITALS: BP 121/77; PULSE 71
== END 2024-04-23 11:42 | disposition home or self-care (01) ==
LOC: ORWHC2ENDO 09:29
PROVIDERS: ATTEND Internal Medicine Gastroenterology
DX: K21.00 Gastro-esophageal reflux disease with esophagitis, without bleeding (principal); K57.30 Diverticulosis of large intestine without perforation or abscess without bleeding; K44.9 Diaphragmatic hernia without obstruction or gangrene
CPT/HCPCS: 88305; 45378; 43239; J2704

== ENCOUNTER → 2024-07-08 | Outpatient (CLI) | payer MEDICARE ==
--- NOTE | 2024-08-03 12:26 | NM ---
EXAMINATION TYPE: NM parathyroid DATE OF EXAM: 07/08/2024 COMPARISON: Thyroid ultrasound 01/30/2023 CLINICAL INDICATION: Female, 79 years old with history of HYPERCALCEMIA, HX OF THYROID DISEASE; TECHNIQUE: Following administration of 24.10 mCi Tc99m Sestamibi. Anterior projection images of the neck and juaquin st were obtained 5 minutes and 3 hours post injection FINDINGS: Thyroid tracer washout: Delayed images demonstrate near-complete tracer washout from the thyroid. Parathyroid uptake: None. The 3-hour delayed images do not demonstrate any focal abnormal persistent uptake in the region of the parathyroid glands to suggest parathyroid adenoma. Normal uptake: There is physiological tracer uptake in the myocardium, liver, salivary glands, and th yroid gland. IMPRESSION: Normal parathyroid imaging study. No evidence for mediastinal uptake to suggest mediastinal parathyro id adenoma
== END | disposition home or self-care (01) ==
LOC: RADNMMAIN 08:39
PROVIDERS: ATTEND Internal Medicine
DX: E21.0 Primary hyperparathyroidism (principal); E07.9 Disorder of thyroid, unspecified
CPT/HCPCS: 78070; A9500

== ENCOUNTER → 2024-07-20 | Outpatient (CLI) | payer MEDICARE ==
--- NOTE | 2024-07-20 11:01 | CT ---
EXAMINATION TYPE: CT urogram wo/w con DATE OF EXAM: 07/20/2024 COMPARISON: None HISTORY: gross hematuria CT DLP: 3596 mGycm Automated exposure control for dose reduction was used. CONTRAST: Performed with IV Contrast, patient injected with 80 mL of Isovue 300. FINDINGS: Bibasilar ectasis. There is cortical lobulation. No renal calculi. No hydronephrosis. There is indeterminate mid and upp er pole exophytic 7 mm right renal lesion too small to characterize but statistically most likely lyric ign Bosniak classification 1 cyst. No sizable suspicious appearing renal masses. The renal pelvis and ureters are demonstrated to fill with contrast and no evidence of filling defect . Bladder distends normally with no significant wall thickening, calculus or filling defect. Small hiatal hernia. Mild coronary artery calcification and borderline cardiomegaly with pericardial lipomatosis. Gallbladder not seen. Spleen normal. Pancreas demonstrates atrophic changes. Bowel gas pattern nonspecific with no obstruction. Moderate retained stool burden correlate for const ipation. Aorta of normal caliber. Tiny nodule right adrenal gland too small to characterize but statistically most likely related to benign adenoma. Multilevel hypertrophic and degenerative changes spine. Grade 1 anterolisthesis L3-4 and L4-5 appears to be degenerative secondary to facet arthropathy. Bilateral hip arthropathy. IMPRESSION: 1. NO HYDRONEPHROSIS, NEPHROLITHIASIS OR SUSPICIOUS RENAL OR BLADDER MASS.
== END | disposition home or self-care (01) ==
LOC: RADCTMAIN 08:17
PROVIDERS: ATTEND Student in an Organized Health Care Education/Training Program
DX: R31.0 Gross hematuria
CPT/HCPCS: 36415; 74178; 74400; 84520

== ENCOUNTER → 2024-11-29 | Outpatient (CLI) | payer MEDICARE | END | disposition home or self-care (01) | LOC: LABWHC1 13:58 | PROVIDERS: ATTEND Dermatology MOHS-Micrographic Surgery | DX: L40.0 Psoriasis vulgaris (principal); L57.0 Actinic keratosis; L81.4 Other melanin hyperpigmentation; D22.61 Melanocytic nevi of right upper limb, including shoulder; D22.62 Melanocytic nevi of left upper limb, including shoulder; D22.5 Melanocytic nevi of trunk; D22.71 Melanocytic nevi of right lower limb, including hip; D22.72 Melanocytic nevi of left lower limb, including hip; L82.1 Other seborrheic keratosis; D23.71 Other benign neoplasm of skin of right lower limb, including hip; L91.8 Other hypertrophic disorders of the skin; Z79.899 Other long term (current) drug therapy | CPT/HCPCS: 36415; 86480 ==

== ENCOUNTER → 2025-01-19 | Outpatient (CLI) | payer MEDICARE ==
[~2025-01-19] MED LIST changes: +IODINE/POTASSIUM IODIDE 14 ML BOTTLE ONE; -LACTATED RINGERS 1,000 ML IV SCH; -LIDOCAINE 1% (10MG/ML) FOR IV START INTRADERMA PRN
--- NOTE | 2025-01-19 21:16 | NM ---
EXAMINATION TYPE: NM DatScan Brain SPECT DATE OF EXAM: 01/19/2025 COMPARISON: NONE CLINICAL INDICATION: Female, 79 years old with history of R25.1 TREMOR; TECHNIQUE: 10 drops of Lugol's solution was administered 1 hour prior to injection as a thyroid bloc lori agent. After the administration of 4.97 mCi I-123 Ioflupane DaTscan. Images obtained 3 hours p ost injection. SPECT images of the brain were acquired with axial and coronal reconstructions. FINDINGS: The DaTSCAN demonstrates normal uptake of tracer throughout the striata. Consequently there is no evidence of loss of the pre-synaptic dopaminergic terminals on this investig ation. IMPRESSION: This normal appearance is against a diagnosis of idiopathic Parkinson?s disease(PD) or a Parkinsonia n syndrome (PS) and is seen in healthy individuals and also patients with essential tremor (ET),antoine g induced parkinsonism, and vascular pseudo-parkinsonism. [facility], , 01/19/2025 9:14 PM
== END | disposition home or self-care (01) ==
LOC: RADNMMAIN 08:49
PROVIDERS: ATTEND Internal Medicine
DX: G21.19 Other drug induced secondary parkinsonism (principal); G25.0 Essential tremor; G20.A1 Parkinson's disease without dyskinesia, without mention of fluctuations
CPT/HCPCS: 78803; A9584

== ENCOUNTER → 2025-02-16 | Outpatient (CLI) | payer MEDICARE ==
--- NOTE | 2025-02-16 11:32 | MR ---
INDICATION: Patient age:Female; 80 years old; Reason for study: R29.898 OTH SX AND SIGNS MUSCULOSKELETAL SYSTEM; PHH. COMPARISON: None. TECHNIQUE: Multi planar, multi sequence imaging was performed of the cervical spine. No Gadolinium wa s given. FINDINGS: Alignment: The cervical vertebral bodies have preserved heights. Grade 1 anterolisthesis of C3 on C4. Bones: Bone signal is within normal limits. Anterior osteophytosis at C5-C6. No abnormal STIR signal. Cord: The spinal cord is unremarkable with regards to their signal intensity and morphology. Discs: Multilevel disc desiccation is present. C2-C3: No significant disc pathology. The spinal canal is patent. No neural foraminal stenosis. C3-C4: Tiny central disc protrusion with minimal effacement of the anterior thecal sac. No significan t central canal stenosis. Uncovertebral joint hypertrophy resulting in mild bilateral neural foramin al stenosis. C4-C5: Broad-based disc bulge with mild effacement of the anterior thecal sac. No significant central canal stenosis. Uncovertebral joint hypertrophy. No significant neural foraminal stenosis. C5-C6: Posterior disc osteophyte complex with mild effacement of the anterior thecal sac. Minimal nathaly tral canal stenosis. Uncovertebral joint hypertrophy. The right neural foramen is patent. Moderate t o severe left neural foraminal stenosis. C6-C7: Posterior disc osteophyte complex with minimal effacement of the anterior thecal sac. No signi ficant central canal stenosis. Uncovertebral joint hypertrophy. Mild left neural foraminal stenosis. The right neural foramen is patent. C7-T1: No significant disc pathology. The spinal canal is patent. No neural foraminal stenosis. Other: None. IMPRESSION: Mild multilevel disc degeneration with associated osteoarthritic changes as described above. [facility], , 02/16/2025 11:30 AM
== END | disposition home or self-care (01) ==
LOC: RADMRIMAIN 10:50
PROVIDERS: ATTEND Internal Medicine
DX: M50.31 Other cervical disc degeneration, high cervical region (principal); M99.71 Connective tissue and disc stenosis of intervertebral foramina of cervical region; R29.898 Other symptoms and signs involving the musculoskeletal system
CPT/HCPCS: 72141

== ENCOUNTER → 2025-03-14 | Outpatient (CLI) | payer MEDICARE ==
[2025-03-14 10:52] VITALS: BP 126/78; PULSE 66; RESP 16
--- NOTE | 2025-03-14 14:31 | P.PAINPG ---
PQRS Measure Charge Sheet Comment: HISTORY OF PRESENT ILLNESS: A 80 yr old female w at side as a referral from Dr Fiore presents today w severe and chronic neck and back pain > 1 yr secondary to C4 -C7 radiculopathy, L3-L5 spondylolisthesis and facet arthropathy without myelopathy for evaluation. Pt states pain level is provoked at 4-7 /10 in intensity, intermittent, localized in the lumbar spine, predominantly axial, achy in character w occasional shooting pain towards the buttocks, hips and LEs. Pain is provoked by sitting periods > 30 min or over activity. Pain is alleviated by PT x 6 wks which ended in Feb 2025, physician guided home stretches daily since mid Feb 2025, medications, repositioning and rest . Oswestry axial pain score at 35. PMH: OA, aFib, CVA, GERD, Hyperlipidemia, Skin Disorder, Hypothyroidism, Psoriasis/Psoriatic Arthritis, MDD PSH: EGD (2023), HH Repair, Appendectomy, Cholecystectomy, Hernia Repair, Hysterectomy, Ovarian Cystectomy, L Total Knee Replacement, R Total Knee Arthroplasty, R RCT Repair, R Foot ORIF x2, Mario Fundoplication (2017) SH: Negative x3 FH: Mo- Breast CA. Fa- Melanoma. Sis- Pancreatic CA. Sis- Colon CA All: See list Meds: See list include Neurontin, Tyl REVIEW OF ORGAN SYSTEMS: CONSTITUTIONAL: No fevers or chills. No recent weight loss. NEUROLOGICAL: + numbness and tingling along the distal extremities. No seizure disorders or headaches. MUSCULOSKELETAL: + pain PSYCHIATRIC: Denies current depression or suicidal thoughts. Physical Examinations : Constitutional : Cooperative , not in acute distress . Neurologic : Cranial nerve II to XII intact. No focal neurological deficits. Psychiatric : alert & oriented x 3. Matching mood & appropriate affect. Judgment & insight intact. Musculoskeletal : Cervical Spine Motor strength in the deltoid and biceps: Normal right side. Normal Left side Motor strength biceps and the wrist extensors: Normal right side . Normal left side Motor strength in the triceps muscle: Normal right side. Normal left side Deep tendon reflexes: Normal at the biceps. Normal at Brachioradialis. Normal at triceps Vertebral body tenderness to deep palpation over Cervical facet loading test: positive bilaterally Spurling test: positive bilaterally Neck distraction test: positive bilaterally Faviola sign: positive bilaterally Lumbar spine Motor strength lower extremities ,thigh and legs 5/5 Right side , 5/5 Left side Deep tendon reflexes : Normal Knee Jerk. Normal Ankle Jerk Vertebral body tenderness over Sanchez Test positive Lumbar facet Loading Test: positive Right / positive Left Range of motion of the lumbar spine Flexion 30 degrees, extension 10 degrees Straight Leg Raise test: Left/ Right positive at degrees Jaden test: positive right / positive left. Severe tenderness over the Sacroiliac joint on the Right / Left sides Gaenslen test: positive bilaterally Seated flexion test: positive bilaterally. Sacral spine : Severe tenderness over the Sacroiliac joint: right side / left side Range of motion: Flexion of the lumbar spine <60 degrees Range of motion: Extension of the lumbar spine <20 degrees Gaenslen's Test positive Jaden test: positive right side / left side Thigh Thrust Test Sacral Thrust Test Imaging: MRI non contrast of the cervical spine from 02/16/2025 reviewed MRI noncontrast of the lumbar spine from reviewed Assessment/ Plan : C4 -C7 radiculopathy, L3-L5 spondylolisthesis Recommendation of PT focused on traction/ decompression M54.16. Will follow up w Dr Edwards for additional treatment options. All questions answered. I have spent greater than 30 minutes on patient care today. Dr Turner was available by phone for the evaluation of this patient. The time was used to review the medical records including relevant urine studies and Prescription history (MAPs), review of the available imaging, evaluation and examination of the patient, coordination of care with the medical staff and if applicable referring physicians, as well as creation of the medical record - Pain Location Bilateral Lower Back Non-Pharmacological Interventions: Home Exercise, Inactivity, Physical Therapy, Position/Reposition, Sitting, Stretching Pharmacological Interventions: PRN Medication, Topical Medication PQRS Narrative: Smoking Status Never smoker Home Medications: Ambulatory Orders DULoxetine HCL [Cymbalta] 60 mg PO BID 10/14/17 Flecainide Acetate [Tambocor] 100 mg PO Q12HR 07/28/18 Gabapentin 600 mg PO HS PRN 02/24/23 Levothyroxine Sodium [Synthroid] 112 mcg PO DAILY 02/24/23 Atorvastatin [Lipitor] 40 mg PO DAILY 04/22/24 Lubiprostone 24 mcg PO DAILY 04/22/24 Rivaroxaban [Xarelto] 20 mg PO DAILY 04/22/24 Controlled Substance Measures - Controlled Substance Measures Is patient prescribed a controlled substance at discharge?: No
== END ==
LOC: PNWHC3 09:58
PROVIDERS: ATTEND Specialist
DX: M47.22 Other spondylosis with radiculopathy, cervical region (principal); M47.26 Other spondylosis with radiculopathy, lumbar region; Z88.2 Allergy status to sulfonamides; Z88.8 Allergy status to other drugs, medicaments and biological substances
CPT/HCPCS: 99211

== ENCOUNTER → 2025-03-25 | Outpatient (CLI) | payer MEDICARE ==
--- NOTE | 2025-03-25 21:19 | MR ---
EXAMINATION TYPE: MR brain wo/w con DATE OF EXAM: 03/25/2025 8:47 PM COMPARISON: None. CLINICAL INDICATION: Female, 80 years old with history of R27.0 ATXAXIA; PHH, Weakness and Shakiness - legs give out TECHNIQUE: Multi planar, multi sequence imaging was performed through the brain including: T1, T2, In version recovery, susceptibility weighted imaging and gradient echo imaging and Diffusion weighted im aging. The patient was then given intravenous contrast and multi planar, T1 fat-saturation images wer e obtained. IV Contrast: 8ml mL Gadobutrol FINDINGS: Mild cerebral atrophy with proportional dilation of ventricular system. Diffusion-weighted imaging s hows no evidence of restricted diffusion to suggest acute/subacute infarct. Intracranial arterial oswaldo w voids are maintained. Midline structures show no abnormality. Scattered foci of high T2 signal inte nsity are seen within the periventricular white matter. The susceptibility weighted images do not rev eal any evidence for micro-hemorrhage. After administration of gadolinium, no abnormal enhancement is seen. The bone marrow signal is within normal limits. Paranasal sinuses and mastoid air cells: No significant paranasal sinus disease. Visualized orbits: Orbital contents are intact. IMPRESSION: 1. Mild atrophy changes, No evidence of intracranial mass, acute/subacute infarct, or abnormal enhanc ement. 2. Nonspecific white matter changes, likely related to small vessel ischemic disease. [facility], , 03/25/2025 9:17 PM
== END | disposition home or self-care (01) ==
LOC: RADMRIMAIN 20:15
PROVIDERS: ATTEND Internal Medicine
DX: R27.0 Ataxia, unspecified (principal); G31.9 Degenerative disease of nervous system, unspecified
CPT/HCPCS: 70553; A9585

== ENCOUNTER → 2025-05-30 | Outpatient (CLI) | payer MEDICARE ==
--- NOTE | 2025-05-30 17:00 | NM ---
EXAMINATION TYPE: NM parathyroid w/spect DATE OF EXAM: 05/30/2025 COMPARISON: 07/08/2024 CLINICAL INDICATION: Female, 80 years old with history of E21.0 PRIMARY HYPERPARATHYROIDISM; TECHNIQUE: Following administration of 24.3 mCi Tc99m Sestamibi. Anterior projection images of the neck and ches t were obtained 10 minutes and 3 hours post injection. SPECT images of the neck and chest were obtai yulisa and reconstructed in three axes. FINDINGS: Thyroid tracer washout: Delayed images demonstrate near-complete tracer washout from the thyroid. Parathyroid uptake: None. The two-hour delayed images do not demonstrate any focal abnormal persisten t uptake in the region of the parathyroid glands to suggest parathyroid adenoma. Normal uptake: There is physiological tracer uptake in the myocardium, liver, salivary glands, and th yroid gland. IMPRESSION: Normal parathyroid imaging study. No evidence for mediastinal uptake to suggest mediastinal parathyro id adenoma [facility], , 05/30/2025 4:58 PM
== END | disposition home or self-care (01) ==
LOC: RADNMMAIN 10:57
PROVIDERS: ATTEND Internal Medicine
DX: E21.0 Primary hyperparathyroidism (principal)
CPT/HCPCS: 78071; A9500

== ENCOUNTER 2025-06-09 10:09 | Emergency (ER) | payer MEDICARE ==
[2025-06-09 10:16] VITALS: RESP 18; TEMP 98.5
--- NOTE | 2025-06-09 10:28 | ED ---
Weakness HPI - General Chief complaint: Weakness Stated complaint: Weakness Time Seen by Provider: 06/09/25 10:23 Source: patient, EMS, RN notes reviewed Mode of arrival: EMS Limitations: no limitations - History of Present Illness Initial comments: This is a 80-year-old female with history including TIA, A-fib, diverticulitis and hyperlipidemia presenting via EMS with for weakness x 7 days. Patient endorses associated decreased appetite due to nausea, even when eating bland food and clear liquid as well as diarrhea. States symptoms have worsened over the last few days with new onset shortness of breath starting today. Endorses occasional postprandial "burning" sensation in her RUQ. Endorses use of omeprazole and Zofran with minimal relief. Patient states she is currently taking Ceftin for UTI, noting only increased urinary frequency. Denies fever, chills, chest pain, current abdominal pain, vomiting, hematochezia, melena, dysu trudy, hematuria, mid back pain. MD Complaint: generalized weakness Onset/Timin -: days(s) Associated Symptoms: loss of appetite, nausea/vomiting, shortness of breath - Related Data Home Medications Medication Instructions Recorded Confirmed Flecainide Acetate [Tambocor] 100 mg PO Q12HR 07/28/18 06/10/25 Gabapentin 600 mg PO HS 02/24/23 06/11/25 Rivaroxaban [Xarelto] 20 mg PO HS 04/22/24 06/10/25 Atorvastatin [Lipitor] 80 mg PO HS 06/09/25 06/10/25 Cholecalciferol [Vitamin D3 (25 25 mcg PO DAILY 06/09/25 06/10/25 Mcg = 1000 Iu)] Evolocumab [Repatha Sureclick] 140 mg SQ Q14D 06/09/25 06/10/25 Ezetimibe [Zetia] 10 mg PO HS 06/09/25 06/10/25 Levothyroxine Sodium [Synthroid] 112 mcg PO DAILY 06/09/25 06/10/25 Metoprolol Succinate [Metoprolol 25 mg PO HS 06/09/25 06/10/25 Succinate ER] Mv-Mn/Om3/Dha/Epa/Fish/Lut/Diony 1 cap PO HS 06/09/25 06/10/25 [Ocuvite Adult 50 Plus Softgel] Previous Rx's Medication Instructions Recorded Amoxicillin/Potassium Clav 1 each PO BID 7 Days #14 tab 06/12/25 [Amox-Clav 875-125 mg Tablet] DULoxetine HCL [Cymbalta] 60 mg PO DAILY #90 cap 06/12/25 Losartan [Cozaar] 50 mg PO DAILY #90 tab 06/12/25 Allergies Allergy/AdvReac Type Severity Reaction Status Date / Time estradiol Allergy Rash/Hives Verified 06/09/25 20:48 Sulfa (Sulfonamide Allergy Rash/Hives Verified 06/09/25 20:48 Antibiotics) Review of Systems ROS Statement: Those systems with pertinent positive or pertinent negative responses have been documented in the HPI. ROS Other: All systems not noted in ROS Statement are negative. Past Medical History Past Medical History: Atrial Fibrillation, CVA/TIA, GERD/Reflux, Hyperlipidemia, Osteoarthritis (OA), Skin Disorder, Thyroid Disorder Additional Past Medical History / Comment(s): TIA (2014), Psoriatic Arthritis., gout., hypothyroid, past hx of GERD with hiatal hernia repair,. Psoriasis., Varicose veins., Shields's cyst on Lt knee, chronic constipation, Gas., chronic UTI- hx of blood in urine. History of Any Multi-Drug Resistant Organisms: ESBL Date of last positivie culture/infection: 05/30/25 MDRO Source:: urine Past Surgical History: Appendectomy, Cholecystectomy, Hernia Repair, Hysterectomy, Joint Replacement, Orthopedic Surgery Additional Past Surgical History / Comment(s): Lap Mario Fundoplication (02/2018), EGDs/colonoscopy, Total R knee arthroplasty, R shoulder rotator cuff repair, ORIF R foot fx x2 surgeries, surgery for ruptured ovarian cyst., TotaL Left Knee. Past Anesthesia/Blood Transfusion Reactions: No Reported Reaction Additional Past Anesthesia/Blood Transfusion Reaction / Comment(s): . Past Psychological History: Depression Smoking Status: Never smoker Past Alcohol Use History: None Reported Past Drug Use History: None Reported - Past Family History Mother Family Medical History: Cancer Additional Family Medical History / Comment(s): MOTHER HAD BREAST CANCER. Father Family Medical History: Cancer Additional Family Medical History / Comment(s): FATHER HAD MELANOMA Sister(s) Family Medical History: Cancer Additional Family Medical History / Comment(s): ONE SISTER HAD PANCREATIC CANCER. Another sister had bowel cancer. General Exam Limitations: no limitations General appearance: alert, in no apparent distress Head exam: Present: atraumatic, normocephalic, normal inspection Eye exam: Present: normal appearance, PERRL, EOMI. Absent: scleral icterus, conjunctival injection, periorbital swelling ENT exam: Present: normal exam, mucous membranes moist Neck exam: Present: normal inspection. Absent: tenderness, meningismus, lymphadenopathy Respiratory exam: Present: normal lung sounds bilaterally. Absent: respiratory distress, wheezes, rales, rhonchi, stridor, accessory muscle use, decreased breath sounds, prolonged expiratory Cardiovascular Exam: Present: regular rate, normal rhythm, normal heart sounds. Absent: systolic murmur, diastolic murmur, rubs, gallop, clicks GI/Abdominal exam: Present: soft, distended, tenderness (Positive LLQ TTP without guarding. Negative RUQ, epigastric TTP negative McBurney point, Rovsing sign, Jennings sign.), diminished bowel sounds, hypoactive bowel sounds. Absent: guarding, rebound, rigid Extremities exam: Present: normal inspection, full ROM, normal capillary refill. Absent: tenderness, pedal edema, joint swelling, calf tenderness Back exam: Present: normal inspection Neurological exam: Present: alert, oriented X3, CN II-XII intact Psychiatric exam: Present: normal affect, normal mood Skin exam: Present: warm, dry, intact, normal color. Absent: rash Course Vital Signs 06/09/25 06/09/25 06/09/25 10:10 13:28 15:25 Temperature 98.5 F Pulse Rate 89 91 94 Respiratory 18 18 18 Rate Blood Pressure 133/75 158/90 149/83 O2 Sat by Pulse 95 100 100 Oximetry Medical Decision Making - Medical Decision Making Was pt. sent in by a medical professional or institution (, PA, ASTROCHEMIST, urgent care, hospital, or care home...) When possible be specific @ -No Did you speak to anyone other than the patient for history (EMS, parent, family, police, friend...)? What history was obtained from this source @ -No Did you review nursing and triage notes (agree or disagree)? Why? @ -I reviewed and agree with nursing and triage notes Were old charts reviewed (outside hosp., previous admission, EMS record, old EKG, old radiological studies, urgent care reports/EKG's, care home records)? Report findings @ -No old charts were reviewed Differential Diagnosis (chest pain, altered mental status, abdominal pain women, abdominal pain men, vaginal bleeding, weakness, fever, dyspnea, syncope, headache, dizziness, GI bleed, back pain, seizure, CVA, palpatations, mental health, musculoskeletal)? @ -Differential Weakness: Hypoglycemia, shock, sepsis, hyponatremia, anemia, infection, MD, ETOH, adverse medicine reaction, overdose, stroke, this is not meant to be an all-inclusive list. Differential Abdominal Pain Women: Appendicitis, Cholecystitis, diverticulosis, ischemic bowel, pancreatitis, hepatitis, UTI, gastroenteritis, AAA, incarcerated hernia, bowel obstruction, constipation, inflammatory bowel, hepatitis, peptic ulcer disease, splenic infarction, perforated viscus, vulvitis, ovarian torsion, PID, kidney stone, placenta abruption, this is not meant to be an all-inclusive list EKG interpreted by me (3pts min.). @ -Sinus rhythm with first-degree AV block. No ST deviation or T wave inversion. Trickle rate 88 bpm, TABBY 251 ms, QRS 107 milliseconds, QTc 446 ms. X-rays interpreted by me (1pt min.). @ -CXR shows no acute cardiopulmonary process CT interpreted by me (1pt min.). @ -AP CT shows fluid-filled small bowel loops indicating nonspecific enterocolitis. Sigmoid diverticulosis with minimal fat stranding indicating mild diverticulitis and recurrent small hiatal hernia. U/S interpreted by me (1pt. min.). @ -None done What testing was considered but not performed or refused? (CT, X-rays, U/S, labs)? Why? @ -None What meds were considered but not given or refused? Why? @ -Patient initially declined pain medication and antiemetics, stating she is not having much pain or nausea at that time. Did you discuss the management of the patient with other professionals (p rofessionals i.e. , PA, ASTROCHEMIST, lab, RT, psych nurse, addiction social worker, director of curriculum and instruction, teacher, chief operating officer, hospice case manager)? Give summary @ -No Was smoking cessation discussed for >3mins.? @ -No Was critical care preformed (if so, how long)? @ -No Were there social determinants of health that impacted care today? How? (Homelessness, low income, unemployed, alcoholism, drug addiction, transportation, low edu. Level, literacy, decrease access to med. care, snf, rehab)? @ -No Was there de-escalation of care discussed even if they declined (Discuss DNR or withdrawal of care, Hospice)? DNR status @ -No What co-morbidities impacted this encounter? (DM, HTN, Smoking, COPD, CAD, Cancer, CVA, ARF, Chemo, Hep., AIDS, mental health diagnosis, sleep apnea, morbid obesity)? @ -None Was patient admitted / discharged? Hospital course, mention meds given and route, prescriptions, significant lab abnormalities, going to OR and other pertinent info. @ -Patient initially provided IV normal saline and Zofran. Lab work notable for elevated PT/INR and PTT as well as UTI. Troponin negative, WBC 7.02. CXR shows no acute cardiopulmonary process. AP CT shows fluid-filled small bowel loops indicating nonspecific enterocolitis. Sigmoid diverticulosis with minimal fat stranding indicating mild diverticulitis and recurrent small hiatal hernia. Patient provided IV Reglan for ongoing nausea and later IV normal saline and IV Rocephin. Advised follow-up with PCP in the next 24-48 hours for further ev aluation and management. Advised brat diet, ally tea/jorge for nausea and bowel rest. Discussed patient with Dr. Sanchez. Undiagnosed new problem with uncertain prognosis? @ -No Drug Therapy requiring intensive monitoring for toxicity (Heparin, Nitro, Insulin, Cardizem)? @ -No Were any procedures done? @ -No Diagnosis/symptom? @ -Enterocolitis, sigmoid diverticulitis Acute, or Chronic, or Acute on Chronic? @ -Acute Uncomplicated (without systemic symptoms) or Complicated (systemic symptoms)? @ -Complicated Side effects of treatment? @ -No Exacerbation, Progression, or Severe Exacerbation? @ -No Poses a threat to life or bodily function? How? (Chest pain, USA, MD, pneumonia, PE, COPD, DKA, ARF, appy, cholecystitis, CVA, Diverticulitis, Homicidal, Suicidal, threat to staff... and all critical care pts) @ -No - Lab Data Result diagrams: 06/09/25 10:37 06/09/25 10:37 Lab Results 06/09/25 06/09/25 06/09/25 Range/Units 10:36 10:37 10:37 WBC 7.02 (4.50-10.00) 10*3/uL RBC 4.34 (4.10-5.20) 10*6/uL Hgb 11.9 L (12.0-15.0) g/dL Hct 35.0 L (37.2-46.3) % MCV 80.6 (80.0-97.0) fL MCH 27.4 (27.0-32.0) pg MCHC 34.0 (32.0-37.0) g/dL Plt Count 239 (140-440) 10*3/uL MPV 8.7 L (9.5-12.2) fL Immature Gran % (Auto) 0.7 % Neutrophils % 64.0 % Lymphocytes % 19.9 % Monocytes % 9.0 % Eosinophils % 5.1 % Basophils % 1.3 % Immature Gran # 0.05 H (0.00-0.04) 10*3/uL Neutrophils # 4.49 (1.80-7.70) 10*3/uL Lymphocytes # 1.40 (0.90-5.00) 10*3/uL Monocytes # 0.63 (0.20-1.00) 10*3/uL Eosinophils # 0.36 H (0.04-0.35) 10*3/uL Basophils # 0.09 (0.00-0.10) 10*3/uL PT 16.6 H (10.0-12.5) sec INR 1.6 H (<1.2) APTT 33.5 H (22.0-30.0) sec Sodium (137-145) mmol/L Potassium (3.5-5.1) mmol/L Chloride (98-107) mmol/L Carbon Dioxide (22-30) mmol/L Anion Gap mmol/L BUN (7-17) mg/dL Creatinine (0.52-1.04) mg/dL Est GFR (CKD-EPI)AfAm (>60 ml/min/1.73 sqM) Est GFR (CKD-EPI)NonAf (>60 ml/min/1.73 sqM) Glucose (74-99) mg/dL Plasma Lactic Acid Rodrigo (0.7-2.0) mmol/L Calcium (8.4-10.2) mg/dL Phosphorus (2.5-4.5) mg/dL Magnesium (1.6-2.3) mg/dL Total Bilirubin (0.2-1.3) mg/dL AST (14-36) U/L ALT (4-34) U/L Alkaline Phosphatase (38-126) U/L Troponin I (0.000-0.034) ng/mL Total Protein (6.3-8.2) g/dL Albumin (3.5-5.0) g/dL Urine Color Colorless Urine Appearance Cloudy H (Clear) Urine pH 6.5 (5.0-8.0) Ur Specific [place] 1.011 (1.001-1.035) Urine Protein Negative (Negative) Urine Glucose (UA) Negative (Negative) Urine Ketones Negative (Negative) Urine Blood Negative (Negative) Urine Nitrite Positive H (Negative) Urine Bilirubin Negative (Negative) Urine Urobilinogen <2.0 (<2.0) mg/dL Ur Leukocyte Esterase Large H (Negative) Urine RBC 2 (0-5) /hpf Urine WBC 56 H (0-5) /hpf Ur Squamous Epith Cells <1 (0-4) /hpf Urine Bacteria Few H (None) /hpf Urine Mucus Rare H (None) /hpf 06/09/25 06/09/25 06/09/25 Range/Units 10:37 10:37 10:37 WBC (4.50-10.00) 10*3/uL RBC (4.10-5.20) 10*6/uL Hgb (12.0-15.0) g/dL Hct (37.2-46.3) % MCV (80.0-97.0) fL MCH (27.0-32.0) pg MCHC (32.0-37.0) g/dL Plt Count (140-440) 10*3/uL MPV (9.5-12.2) fL Immature Gran % (Auto) % Neutrophils % % Lymphocytes % % Monocytes % % Eosinophils % % Basophils % % Immature Gran # (0.00-0.04) 10*3/uL Neutrophils # (1.80-7.70) 10*3/uL Lymphocytes # (0.90-5.00) 10*3/uL Monocytes # (0.20-1.00) 10*3/uL Eosinophils # (0.04-0.35) 10*3/uL Basophils # (0.00-0.10) 10*3/uL PT (10.0-12.5) sec INR (<1.2) APTT (22.0-30.0) sec Sodium 134 L (137-145) mmol/L Potassium 4.3 (3.5-5.1) mmol/L Chloride 105 (98-107) mmol/L Carbon Dioxide 20 L (22-30) mmol/L Anion Gap 9 mmol/L BUN 14 (7-17) mg/dL Creatinine 0.93 (0.52-1.04) mg/dL Est GFR (CKD-EPI)AfAm 69 (>60 ml/min/1.73 sqM) Est GFR (CKD-EPI)NonAf 60 (>60 ml/min/1.73 sqM) Glucose 89 (74-99) mg/dL Plasma Lactic Acid Rodrigo 1.8 (0.7-2.0) mmol/L Calcium 9.0 (8.4-10.2) mg/dL Phosphorus 3.5 (2.5-4.5) mg/dL Magnesium 1.6 (1.6-2.3) mg/dL Total Bilirubin 0.5 (0.2-1.3) mg/dL AST 18 (14-36) U/L ALT 14 (4-34) U/L Alkaline Phosphatase 121 (38-126) U/L Troponin I <0.012 (0.000-0.034) ng/mL Total Protein 6.2 L (6.3-8.2) g/dL Albumin 3.7 (3.5-5.0) g/dL Urine Color Urine Appearance (Clear) Urine pH (5.0-8.0) Ur Specific [place] (1.001-1.035) Urine Protein (Negative) Urine Glucose (UA) (Negative) Urine Ketones (Negative) Urine Blood (Negative) Urine Nitrite (Negative) Urine Bilirubin (Negative) Urine Urobilinogen (<2.0) mg/dL Ur Leukocyte Esterase (Negative) Urine RBC (0-5) /hpf Urine WBC (0-5) /hpf Ur Squamous Epith Cells (0-4) /hpf Urine Bacteria (None) /hpf Urine Mucus (None) /hpf Disposition Clinical Impression: Enterocolitis, Sigmoid diverticulitis Disposition: HOME SELF-CARE Condition: Fair Instructions (If sedation given, give patient instructions): Diverticulitis (ED), Colitis (ED) Additional Instructions: Bananas, rice, applesauce, tea, toast. Small sips of water and broth throughout the day. Tylenol every 4-6 hours as needed for pain. General bowel rest recommended for the next 24-48 hours. Follow-up with PCP/gastroenterology during that time. Return to ER if experiencing worsening pain, fever, weakness despite antibiotic/medication use and supportive care. Is patient prescribed a controlled substance at d/c from ED?: No Referrals: Brook Fiore MD [Primary Care Provider] - 1-2 days Rosa Maria Salcedo MD [STAFF PHYSICIAN] - 1-2 days Time of Disposition: 13:56
[2025-06-09] MEDS: SODIUM CHLORIDE 0.9% 1,000 ML IV ONE (10:40)
[2025-06-09] MEDS: ONDANSETRON 4 MG/2 ML VIAL IVP STA (10:41)
[2025-06-09 10:50] LABS: Basophils # (A) 0.09 10*3/uL (0.00-0.10); Basophils % (A) 1.3 %; Eosinophils # (A) 0.36 10*3/uL (0.04-0.35); Eosinophils % (A) 5.1 %; HCT 35.0 % (37.2-46.3); HGB 11.9 g/dL (12.0-15.0); Lymphocytes # (A) 1.40 10*3/uL (0.90-5.00); Lymphocytes % (A) 19.9 %; MCH 27.4 pg (27.0-32.0); MCHC 34.0 g/dL (32.0-37.0); MCV 80.6 fL (80.0-97.0); Monocytes # (A) 0.63 10*3/uL (0.20-1.00); Monocytes % (A) 9.0 %; Neutrophils # (A) 4.49 10*3/uL (1.80-7.70); Neutrophils % (A) 64.0 %; Platelet Count 239 10*3/uL (140-440); RBC 4.34 10*6/uL (4.10-5.20); RDW 16.0 % (11.5-14.5); WBC 7.02 10*3/uL (4.50-10.00)
[2025-06-09 11:05] LABS: INR 1.6 (<1.2); Partial Thromboplastin Time 33.5 sec (22.0-30.0); Prothrombin Time 16.6 sec (10.0-12.5)
[2025-06-09 11:05] LABS: Bacteria,Urine Few /hpf; Bilirubin,Urine Negative (Negative); Blood,Urine Negative (Negative); Color,Urine Colorless; Glucose,Urine (UA) Negative (Negative); Ketones,Urine Negative (Negative); Leukocyte Esterase,Urine Large (Negative); Mucus,Urine Rare /hpf; Nitrite,Urine Positive (Negative); PH, Urine 6.5 (5.0-8.0); Protein,Urine Negative (Negative); RBC,Urine 2 /hpf (0-5); Specific Gravity,Urine 1.011 (1.001-1.035); Squamous Epithelial Cell,Urine <1 /hpf (0-4); Urobilinogen,Urine <2.0 mg/dL (<2.0); WBC,Urine 56 /hpf (0-5)
--- NOTE | 2025-06-09 11:06 | XR ---
EXAMINATION TYPE: XR chest 2V DATE OF EXAM: 06/09/2025 10:57 AM COMPARISON: 01/16/2018 CLINICAL INDICATION: Female, 80 years old with history of Weakness, , TECHNIQUE: PA and lateral views FINDINGS: Heart normal size. Aorta and pulmonary vasculature within normal limits. Mild interstitial prominence as a chronic appearance. No consolidation or pleural effusion. IMPRESSION: No acute cardiopulmonary process. [facility], Workstation: [email or web address], 06/09/2025 11:03 AM
[2025-06-09 11:15] LABS: ALT 14 U/L (4-34); AST 18 U/L (14-36); African American GFR (CKD) 69 (>60 ml/min/1.73 sqM); Albumin 3.7 g/dL (3.5-5.0); Alkaline Phosphatase 121 U/L (38-126); Anion Gap 9 mmol/L; Blood Urea Nitrogen 14 mg/dL (7-17); Calcium 9.0 mg/dL (8.4-10.2); Carbon Dioxide 20 mmol/L (22-30); Chloride 105 mmol/L (98-107); Glucose 89 mg/dL (74-99); Magnesium 1.6 mg/dL (1.6-2.3); Non-African American GFR(CKD) 60 (>60 ml/min/1.73 sqM); Potassium 4.3 mmol/L (3.5-5.1); Sodium 134 mmol/L (137-145); Total Protein 6.2 g/dL (6.3-8.2)
[2025-06-09] MEDS: METOCLOPRAMIDE 5 MG/ML 2 ML VIAL IVP STA (11:49)
--- NOTE | 2025-06-09 13:23 | CT ---
EXAMINATION TYPE: CT abdomen pelvis w con DATE OF EXAM: 06/09/2025 12:52 PM COMPARISON: 07/20/2024 CLINICAL INDICATION: Female, 80 years old with history of LLQ TTP, history of diverticulitis TECHNIQUE: CT of the abdomen and pelvis after IV contrast. Delayed images through the kidneys and cor onal/sagittal reconstructions performed. Contrast used:80 ml mL of Isovue 300 with IV Contrast, Oral contrast used: with Oral Contrast CT DLP: 1057.3 mGycm, Automated exposure control for dose reduction was used. FINDINGS: Heart upper limits of normal in size. Some mild strandy atelectasis lung bases. No pleural effusion. There is a small hiatal hernia but with surgical material at the GE junction. Findings suggest recurr ent hiatal hernia after prior surgery. Liver borderline enlarged 17.6 cm. Suspected tiny 8 mm hepatic dome cyst. Otherwise, no focal liver l esion. Portal venous system is patent. No biliary ductal dilatation. Gallbladder surgically absent. Adrenal glands, left kidney, spleen, and pancreas within normal limits. Tiny 1 cm cortical cyst midpole right kidney. Symmetric uptake and excretion of contrast from both ki dneys. Prominent fluid filled small bowel loops are present throughout. The duodenum is distended up to 3.4 cm with fluid and some small bowel loops are distended up to 2.8 cm. No discrete transition point tho ugh some segments such as at the distal ileum show some mucosal hyperemia. Mixed solid and liquid sto ol within the right side of the colon with mucosal hyperemia and mild fold thickening in ascending co any. There is sigmoid diverticulosis with minimal pericolonic fat stranding, axial image 66. No free fluid or free air. No mesenteric or retroperitoneal adenopathy. Bladder partially distended. Uterus surgically absent. Multiple pelvic phleboliths. No abnormal fluid collection in the pelvis or pelvic lymphadenopathy. Bones: Advanced hypertrophic facet arthropathy mid to lower lumbar spine. Degenerative grade 1 dewayne listhesis L4-L5. The central mid lumbar lordosis. No mild superior deformity at T10 likely chronic gi tonie the lack of any paravertebral soft tissue swelling though new from 07/20/2024. IMPRESSION: 1. Prominent fluid-filled small bowel loops with segmental areas of mucosal hyperemia. The colon als o shows segments of mild fold thickening and mucosal hyperemia suggested along the descending colon a nd sigmoid colon. Correlate for a nonspecific enterocolitis. 2. In addition, there is sigmoid diverticulosis and minimal fat stranding along the mid sigmoid colon . Findings could reflect the above-mentioned colitis or could represent a concurrent mild acute diver ticulitis. No masses or free air. 3. Failed surgery with a recurrent small hiatal hernia. If symptomatic, refer the patient back to the ir surgeon. [facility], , 06/09/2025 1:20 PM
[2025-06-09] MEDS: SODIUM CHLORIDE 0.9% 500 ML 500 ML IV STA (14:28)
[2025-06-09 15:49] VITALS: BP 149/83; PULSE 94
== END 2025-06-09 15:25 | disposition home or self-care (01) ==
LOC: EC 10:09
DX: K52.9 Noninfective gastroenteritis and colitis, unspecified (principal); K57.32 Diverticulitis of large intestine without perforation or abscess without bleeding; I48.91 Unspecified atrial fibrillation; E78.5 Hyperlipidemia, unspecified; Z79.899 Other long term (current) drug therapy; Z86.73 Personal history of transient ischemic attack (TIA), and cerebral infarction without residual deficits; Z88.2 Allergy status to sulfonamides; Z88.8 Allergy status to other drugs, medicaments and biological substances
CPT/HCPCS: 36415; 93005; 80053; 83605; 83735; 84100; 84484; 85025; 85610; 85730; 81001; 87040; 87086; 87077; 87186; 71046; 74177; 99285; 96365; 96375; 96361; J2765; J2405; J0696; Q9967

== ENCOUNTER 2025-06-09 20:45 | Inpatient (IN) | payer MEDICARE ==
--- NOTE | 2025-06-09 21:20 | ED ---
General Adult HPI - General Chief complaint: Abdominal Pain Stated complaint: abdominal pain, nausea Time Seen by Provider: 06/09/25 20:50 Source: patient Mode of arrival: ambulatory Limitations: no limitations - History of Present Illness Initial comments: Patient is a 80-year-old female past medical history of atrial fibrillation on Eliquis, prior CVA, hyperlipidemia, prior appendectomy, prior cholecystectomy, prior hernia repaired prior hysterectomy presenting for left lower quadrant abdominal pain. Patient states she has felt weak and nauseous all week. Abdominal pain started this morning. She was seen in the emergency department and ultimately discharged home with Augmentin and Reglan. 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 States throughout the evening her symptoms remain similar however the pain in her left lower quadrant worsened. She has been unable to control with home Tylenol and feels nauseous was not been able to keep medications down. She was recently treated for UTI as well, on sparfloxacin finished 2 days ago. She denies fevers, chest pain, shortness of breath, last bowel movement was 2 days ago. Currently rates pain as 8 out of 10 and sharp. - Related Data Home Medications Medication Instructions Recorded Confirmed DULoxetine HCL [Cymbalta] 120 mg PO DAILY 10/14/17 06/09/25 Flecainide Acetate [Tambocor] 100 mg PO Q12HR 07/28/18 06/09/25 Gabapentin 1,200 mg PO HS 02/24/23 06/09/25 Lubiprostone 24 mcg PO BID PRN 04/22/24 06/09/25 Rivaroxaban [Xarelto] 20 mg PO HS 04/22/24 06/09/25 Atorvastatin [Lipitor] 80 mg PO HS 06/09/25 06/09/25 Cholecalciferol [Vitamin D3 (25 25 mcg PO DAILY 06/09/25 06/09/25 Mcg = 1000 Iu)] Docusate [Colace] 100 mg PO HS 06/09/25 06/09/25 Evolocumab [Repatha Sureclick] 140 mg SQ Q14D 06/09/25 06/09/25 Ezetimibe [Zetia] 10 mg PO HS 06/09/25 06/09/25 Levothyroxine Sodium [Synthroid] 112 mcg PO DAILY 06/09/25 06/09/25 Metoprolol Succinate [Metoprolol 25 mg PO HS 06/09/25 06/09/25 Succinate ER] Mv-Mn/Om3/Dha/Epa/Fish/Lut/Diony 1 cap PO HS 06/09/25 06/09/25 [Ocuvite Adult 50 Plus Softgel] Ondansetron Odt [Zofran Odt] 4 mg PO BID PRN 06/09/25 06/09/25 Phentermine HCl [Adipex-P] 37.5 mg PO DAILY 06/09/25 06/09/25 Tirzepatide [Mounjaro] 15 mg SQ MO 06/09/25 06/09/25 Previous Rx's Medication Instructions Recorded Amoxic-Pot Clav 875-125Mg 1 tab PO Q12HR #20 tab 06/09/25 [Augmentin 875-125] Metoclopramide [Reglan] 10 mg PO TID PRN #15 tab 06/09/25 Allergies Allergy/AdvReac Type Severity Reaction Status Date / Time estradiol Allergy Rash/Hives Verified 06/09/25 20:48 Sulfa (Sulfonamide Allergy Rash/Hives Verified 06/09/25 20:48 Antibiotics) Review of Systems ROS Statement: Those systems with pertinent positive or pertinent negative responses have been documented in the HPI. ROS Other: All systems not noted in ROS Statement are negative. Past Medical History Past Medical History: Atrial Fibrillation, CVA/TIA, GERD/Reflux, Hyperlipidemia, Osteoarthritis (OA), Skin Disorder, Thyroid Disorder Additional Past Medical History / Comment(s): TIA (2014), Psoriatic Arthritis., gout., hypothyroid, past hx of GERD with hiatal hernia repair,. Psoriasis., Varicose veins., Shields's cyst on Lt knee, chronic constipation, Gas., chronic UTI- hx of blood in urine. History of Any Multi-Drug Resistant Organisms: ESBL Date of last positivie culture/infection: 05/30/25 MDRO Source:: urine Past Surgical History: Appendectomy, Cholecystectomy, Hernia Repair, Hysterectomy, Joint Replacement, Orthopedic Surgery Additional Past Surgical History / Comment(s): Lap Mario Fundoplication (02/2018), EGDs/colonoscopy, Total R knee arthroplasty, R shoulder rotator cuff repair, ORIF R foot fx x2 surgeries, surgery for ruptured ovarian cyst., TotaL Left Knee. Past Anesthesia/Blood Transfusion Reactions: No Reported Reaction Additional Past Anesthesia/Blood Transfusion Reaction / Comment(s): . Past Psychological History: Depression Smoking Status: Never smoker Past Alcohol Use History: None Reported Past Drug Use History: None Reported - Past Family History Mother Family Medical History: Cancer Additional Family Medical History / Comment(s): MOTHER HAD BREAST CANCER. Father Family Medical History: Cancer Additional Family Medical History / Comment(s): FATHER HAD MELANOMA Sister(s) Family Medical History: Cancer Additional Family Medical History / Comment(s): ONE SISTER HAD PANCREATIC CANCER. Another sister had bowel cancer. General Exam - General Exam Comments Initial Comments: PE: CONSTITUTIONAL: No apparent distress, well appearing SKIN: Warm, dry, no jaundice, hives or petechiae. Contusion to the lateral left forearm EYES: Pupils are equally round, extraocular movements intact without nystagmus, clear conjunctiva, non-icteric sclera HENT: Normocephalic, atraumatic, moist mucus membranes, oropharynx clear without exudates NECK: , Full range of motion, normal appearance PULMONARY: Clear to auscultation without wheezes, rhonchi, or rales, normal excursion, no accessory muscle use and no stridor CARDIOVASCULAR: Regular rate, rhythm, normal S1 and S2. No appreciated murmurs, rubs or gallops. Strong radial pulses with intact distal perfusion. No lower extremity edema GASTROINTESTINAL: Soft, active bowel sounds throughout, tenderness palpation left lower quadrant, mildly distended, , no palpable masses, guarding with palpation left lower quadrant, no CVA tenderness no hepatosplenomegaly GENITOURINARY: MUSCULOSKELETAL: Extremities have no gross deformity, no edema, redness, or s welling. NEUROLOGIC:_a/o x 3, GCS 15, normal mentation and speech. Moves all extremities x 4 without motor or sensory deficit PSYCHIATRIC:_normal mood and affect, thought process is clear and linear Limitations: no limitations Course Vital Signs 06/09/25 06/09/25 06/09/25 20:47 21:46 23:16 Temperature 97.9 F Pulse Rate 104 H 92 95 Respiratory 18 18 17 Rate Blood Pressure 162/81 165/97 168/84 O2 Sat by Pulse 99 100 99 Oximetry 06/09/25 23:52 Temperature 97.5 F L Pulse Rate Respiratory Rate Blood Pressure O2 Sat by Pulse Oximetry Medical Decision Making - Medical Decision Making Was pt. sent in by a medical professional or institution (, FLO, BESSEMER CONVERTER OPERATOR, urgent care, hospital, or alf...) When possible be specific @ -No Did you speak to anyone other than the patient for history (EMS, parent, family, police, friend...)? What history was obtained from this source @ -No Did you review nursing and triage notes (agree or disagree)? Why? @ -I reviewed nursing and triage notes-agree with triage note Were old charts reviewed (outside hosp., previous admission, EMS record, old EKG, old radiological studies, urgent care reports/EKG's, alf records)? Report findings @ -Medical records reviewed- Reviewed CT abdomen pelvis performed this afternoon at 1252, was significant for prominent fluid-filled bowel loops, suggestive of nonspecific enterocolitis, additionally did show findings that could reflect "above-mentioned colitis or could represent a concurrent mild acute diverticulitis" Differential Diagnosis (chest pain, altered mental status, abdominal pain women, abdominal pain men, vaginal bleeding, weakness, fever, dyspnea, syncope, headache, dizziness, GI bleed, back pain, seizure, CVA, palpatations, mental health, musculoskeletal)? @Differential Abdominal Pain Women: Appendicitis, Cholecystitis, diverticulosis, ischemic bowel, pancreatitis, hepatitis, UTI, gastroenteritis, AAA, incarcerated hernia, bowel obstruction, constipation, inflammatory bowel, hepatitis, peptic ulcer disease, splenic infarction, perforated viscus, ovarian torsion, PID, kidney stone this is not meant to be an all-inclusive list EKG interpreted by me (3pts min.). @ -As above X-rays interpreted by me (1pt min.). @ -None done CT interpreted by me (1pt min.). @Personally reviewed CT scan I see no evidence of free air or free fluid indicate perforation, I see no evidence of obstruction agree with radiologist interpretation U/S interpreted by me (1pt. min.). @ -None done What testing was considered but not performed or refused? (CT, X-rays, U/S, labs)? Why? @ -None What meds were considered but not given or refused? Why? @ -None Did you discuss the management of the patient with other professionals (prof essionals i.e. , FLO, BESSEMER CONVERTER OPERATOR, lab, RT, psych nurse, medical social consultant, report programmer, teacher, transit authority police officer, family preservation caseworker)? Give summary @ -No Was smoking cessation discussed for >3mins.? @ -No Was critical care preformed (if so, how long)? @ -No Were there social determinants of health that impacted care today? How? (Homelessness, low income, unemployed, alcoholism, drug addiction, transportation, low edu. Level, literacy, decrease access to med. care, fdc, rehab)? @ -No Was there de-escalation of care discussed even if they declined (Discuss DNR or withdrawal of care, Hospice)? @ -No What co-morbidities impacted this encounter? (DM, HTN, Smoking, COPD, CAD, Cancer, CVA, ARF, Chemo, Hep., AIDS, mental health diagnosis, sleep apnea, morbid obesity)? @ -None Was patient admitted / discharged? Hospital course, mention meds given and route, prescriptions, significant lab abnormalities, going to OR and other pertinent info. @ -Moiiljdib-63-st[age]-old female presenting today for 1 day of abdominal pain, seen earlier this morning diagnosed with enterocolitis and discharged home on Augmentin and Reglan. 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 Now worsening left lower quadrant pain. Patient is mildly tachycardic on arrival hypertensive with blood pressure 162/81. Remaining vital signs in acceptable limits. Exam significant for mildly distended abdomen with significant tenderness in the lower quadrant of the abdomen without palpable masses. I did review earlier CT scan, though due to migration and worsening of pain concern for potential new acute intra- abdominal process so obtain CT abdomen pelvis without contrast to avoid excessive contrast load. Additionally will obtain labs, administer IV fluids, Rocephin, Flagyl and pain control. Due to recurrent and worsening symptoms, unable to tolerate p.o. intake and thus unable to tolerate antibiotics anticipate admission. Additionally patient was noted to have a UTI this morning with positive nitrites though failed outpatient antibiotic therapy. Labs reviewed. Grossly within normal limits. Abnormal values not concerning for acute pathology related to presenting complaint. Repeat UA was not obtained due to UA earlier showing UTI. Reassessment patient states pain is not "tolerable". Discussed with her reassuring labs, patient would prefer to be admitted at this time due to the amount of pain she has had in the amount of nausea. Given she was discharged on oral antibiotics and has recurrent UTI despite outpatient treatment we will admit for observation. Case was discussed with Dr. Fiore who kindly accepted patient for admission. Undiagnosed new problem with uncertain prognosis? @ -No Drug Therapy requiring intensive monitoring for toxicity (Heparin, Nitro, Insulin, Cardizem)? @ -No Were any procedures done? @ -No Diagnosis/symptom? @ acute diverticulitis, UTI Acute, or Chronic, or Acute on Chronic? acute Uncomplicated (without systemic symptoms) or Complicated (systemic symptoms)? complicated Side effects of treatment? @ -No Exacerbation, Progression, or Severe Exacerbation? @ -No Poses a threat to life or bodily function? How? (Chest pain, USA, NC, pneumonia, PE, COPD, DKA, ARF, appy, cholecystitis, CVA, Diverticulitis, Homicidal, Suicidal, threat to staff... and all critical care pts) @ -No - Lab Data Result diagrams: 06/09/25 21:35 06/09/25 21:35 Lab Results 06/09/25 06/09/25 06/09/25 Range/Units 21:35 21:35 21:35 WBC 8.65 (4.50-10.00) 10*3/uL RBC 4.32 (4.10-5.20) 10*6/uL Hgb 11.9 L (12.0-15.0) g/dL Hct 34.6 L (37.2-46.3) % MCV 80.1 (80.0-97.0) fL MCH 27.5 (27.0-32.0) pg MCHC 34.4 (32.0-37.0) g/dL Plt Count 229 (140-440) 10*3/uL MPV 8.5 L (9.5-12.2) fL Immature Gran % (Auto) 0.6 % Neutrophils % 72.6 % Lymphocytes % 14.1 % Monocytes % 8.6 % Eosinophils % 3.4 % Basophils % 0.7 % Immature Gran # 0.05 H (0.00-0.04) 10*3/uL Neutrophils # 6.29 (1.80-7.70) 10*3/uL Lymphocytes # 1.22 (0.90-5.00) 10*3/uL Monocytes # 0.74 (0.20-1.00) 10*3/uL Eosinophils # 0.29 (0.04-0.35) 10*3/uL Basophils # 0.06 (0.00-0.10) 10*3/uL PT 12.5 (10.0-12.5) sec INR 1.2 H (<1.2) APTT 27.6 (22.0-30.0) sec Sodium 133 L (137-145) mmol/L Potassium 3.9 (3.5-5.1) mmol/L Chloride 105 (98-107) mmol/L Carbon Dioxide 16 L (22-30) mmol/L Anion Gap 12 mmol/L BUN 11 (7-17) mg/dL Creatinine 0.86 (0.52-1.04) mg/dL Est GFR (CKD-EPI)AfAm 75 (>60 ml/min/1.73 sqM) Est GFR (CKD-EPI)NonAf 65 (>60 ml/min/1.73 sqM) Glucose 93 (74-99) mg/dL Plasma Lactic Acid Rodrigo (0.7-2.0) mmol/L Calcium 9.7 (8.4-10.2) mg/dL Total Bilirubin 0.5 (0.2-1.3) mg/dL AST 18 (14-36) U/L ALT 14 (4-34) U/L Alkaline Phosphatase 136 H (38-126) U/L Total Protein 6.3 (6.3-8.2) g/dL Albumin 3.9 (3.5-5.0) g/dL Lipase 94 (23-300) U/L 06/09/25 Range/Units 21:35 WBC (4.50-10.00) 10*3/uL RBC (4.10-5.20) 10*6/uL Hgb (12.0-15.0) g/dL Hct (37.2-46.3) % MCV (80.0-97.0) fL MCH (27.0-32.0) pg MCHC (32.0-37.0) g/dL Plt Count (140-440) 10*3/uL MPV (9.5-12.2) fL Immature Gran % (Auto) % Neutrophils % % Lymphocytes % % Monocytes % % Eosinophils % % Basophils % % Immature Gran # (0.00-0.04) 10*3/uL Neutrophils # (1.80-7.70) 10*3/uL Lymphocytes # (0.90-5.00) 10*3/uL Monocytes # (0.20-1.00) 10*3/uL Eosinophils # (0.04-0.35) 10*3/uL Basophils # (0.00-0.10) 10*3/uL PT (10.0-12.5) sec INR (<1.2) APTT (22.0-30.0) sec Sodium (137-145) mmol/L Potassium (3.5-5.1) mmol/L Chloride (98-107) mmol/L Carbon Dioxide (22-30) mmol/L Anion Gap mmol/L BUN (7-17) mg/dL Creatinine (0.52-1.04) mg/dL Est GFR (CKD-EPI)AfAm (>60 ml/min/1.73 sqM) Est GFR (CKD-EPI)NonAf (>60 ml/min/1.73 sqM) Glucose (74-99) mg/dL Plasma Lactic Acid Rodrigo 1.3 (0.7-2.0) mmol/L Calcium (8.4-10.2) mg/dL Total Bilirubin (0.2-1.3) mg/dL AST (14-36) U/L ALT (4-34) U/L Alkaline Phosphatase (38-126) U/L Total Protein (6.3-8.2) g/dL Albumin (3.5-5.0) g/dL Lipase (23-300) U/L Disposition Clinical Impression: Diverticulitis, Recurrent UTI Disposition: ADMITTED IP TO THIS [facility] Condition: Stable
[2025-06-09] MEDS: LACTATED RINGERS 1,000 ML IV ONE (21:38)
[2025-06-09] MEDS: ONDANSETRON 4 MG/2 ML VIAL IVP STA (21:39)
[2025-06-09] MEDS: MORPHINE SULFATE 4 MG/ML SYRINGE IVP STA (21:41)
[2025-06-09 21:47] LABS: Basophils # (A) 0.06 10*3/uL (0.00-0.10); Basophils % (A) 0.7 %; Eosinophils # (A) 0.29 10*3/uL (0.04-0.35); Eosinophils % (A) 3.4 %; HCT 34.6 % (37.2-46.3); HGB 11.9 g/dL (12.0-15.0); Lymphocytes # (A) 1.22 10*3/uL (0.90-5.00); Lymphocytes % (A) 14.1 %; MCH 27.5 pg (27.0-32.0); MCHC 34.4 g/dL (32.0-37.0); MCV 80.1 fL (80.0-97.0); Monocytes # (A) 0.74 10*3/uL (0.20-1.00); Monocytes % (A) 8.6 %; Neutrophils # (A) 6.29 10*3/uL (1.80-7.70); Neutrophils % (A) 72.6 %; Platelet Count 229 10*3/uL (140-440); RBC 4.32 10*6/uL (4.10-5.20); RDW 16.2 % (11.5-14.5); WBC 8.65 10*3/uL (4.50-10.00)
[2025-06-09 22:00] LABS: INR 1.2 (<1.2); Partial Thromboplastin Time 27.6 sec (22.0-30.0); Prothrombin Time 12.5 sec (10.0-12.5)
[2025-06-09 22:02] LABS: ALT 14 U/L (4-34); AST 18 U/L (14-36); African American GFR (CKD) 75 (>60 ml/min/1.73 sqM); Albumin 3.9 g/dL (3.5-5.0); Alkaline Phosphatase 136 U/L (38-126); Anion Gap 12 mmol/L; Blood Urea Nitrogen 11 mg/dL (7-17); Calcium 9.7 mg/dL (8.4-10.2); Carbon Dioxide 16 mmol/L (22-30); Chloride 105 mmol/L (98-107); Glucose 93 mg/dL (74-99); Lipase 94 U/L (23-300); Non-African American GFR(CKD) 65 (>60 ml/min/1.73 sqM); Potassium 3.9 mmol/L (3.5-5.1); Sodium 133 mmol/L (137-145); Total Protein 6.3 g/dL (6.3-8.2)
--- NOTE | 2025-06-09 22:30 | CT ---
EXAMINATION TYPE: CT abdomen pelvis wo con Automated exposure control for dose reduction was used. DATE OF EXAM: 06/09/2025 10:25 PM COMPARISON: CT abdomen pelvis from earlier today CLINICAL INDICATION:Female, 80 years old with history of CT earlier w/diverticulitis, now worse LLQ p ain; TECHNIQUE: Standard CT of the abdomen and pelvis without IV or oral contrast. Lack of IV or oral co ntrast limits evaluation of solid and hollow organ viscera. Coronal reformats were performed. FINDINGS: LOWER CHEST: Mild strandy atelectasis within the lung bases redemonstrated. Elevation of the right he midiaphragm. ABDOMEN LIVER: Right hepatic dome subcentimeter probable cyst. GALLBLADDER AND BILE DUCTS: The gallbladder is surgically absent. No biliary ductal dilatation. PANCREAS: Unremarkable noncontrast appearance. SPLEEN: Unremarkable noncontrast appearance. ADRENAL GLANDS: Unremarkable noncontrast appearance.. KIDNEYS AND URETERS: No evidence of hydronephrosis. Right renal upper pole cortical 1 cm simple appea ring cyst. No follow up recommended. Contrast is demonstrated within both collecting systems and prox imal ureters from earlier CT exam. No other definitive renal calculi. PELVIS BLADDER: Contrast filled urinary bladder from prior CT. No filling defects identified. REPRODUCTIVE: The uterus is surgically absent. ABDOMEN & PELVIS STOMACH AND BOWEL: Small hiatal hernia with postsurgical changes at the GE junction.Circumferential w all thickening of the sigmoid colon with some scattered diverticula of the distal colon. Minimal surr ounding fat stranding involving the sigmoid colon. No surrounding organized fluid collection. No pneu matosis. Redemonstration of fluid-filled nondilated bowel loops. No evidence of bowel obstruction. Th e appendix is not identified. PERITONEUM: No evidence of pneumoperitoneum or free fluid. VASCULATURE: No evidence of aortic aneurysm. Pelvic phleboliths MUSCULOSKELETAL: No acute osseous abnormalities. Advanced hypertrophic facet arthropathy of the mid t o lower lumbar spine. Degenerative grade 1 anterolisthesis L4 on L5. Mid lumbar lordosis. Chronic T10 superior endplate compression deformity. Sclerotic focus within the left ilium favored to represent a benign bone island. LYMPH NODES: No gross evidence for lymphadenopathy. SOFT TISSUE/ABDOMINAL WALL: Unremarkable IMPRESSION: 1. Findings suggesting uncomplicated colitis/diverticulitis again involving the descending and sigmo id colon. Likely from an infectious/inflammatory process. 2. Fluid-filled nondilated small bowel loops redemonstrated which could be seen with an enteritis. [facility], , 06/09/2025 10:28 PM
[2025-06-09] MEDS ORDERED: NALOXONE 0.4 MG/ML 1 ML VIAL IV PRN (22:37)
[2025-06-09] MEDS ORDERED: ACETAMINOPHEN TAB 325 MG TAB PO PRN (22:37)
[2025-06-09] MEDS ORDERED: HYDROmorphone 0.5 MG/0.5 ML SYRINGE IVP PRN (22:37)
[2025-06-09] MEDS ORDERED: MORPHINE SULFATE 4 MG/ML SYRINGE IV PRN (22:37)
[2025-06-09] MEDS: EZETIMIBE 10 MG TAB PO SCH (23:24)
[2025-06-09] MEDS: FLECAINIDE 50 MG TAB PO SCH (23:24)
[2025-06-09] MEDS: RIVAROXABAN 20 MG TAB PO SCH (23:24)
[2025-06-09] MEDS: ATORVASTATIN 80 MG TAB PO SCH (23:25)
[2025-06-09] MEDS: SODIUM CHLORIDE 0.9% 1,000 ML IV SCH (23:26)
[2025-06-09] MEDS: ACETAMINOPHEN IV (For NPO) 1,000 MG in EMPTY BAG 1 BAG IVPB STA (23:28)
[2025-06-09] MEDS: GABAPENTIN 400 MG CAP PO SCH (23:31)
[2025-06-09] MEDS: metroNIDAZOLE-NS PMX 500 MG in SALINE 1 100ML.BAG IVPB STA (23:50)
[2025-06-10] MEDS ORDERED: ONDANSETRON ODT 4 MG TAB PO PRN (01:12)
[2025-06-10] MEDS: ACETAMINOPHEN TAB 325 MG TAB PO PRN (02:59)
[2025-06-10] MEDS: METOCLOPRAMIDE 10 MG TAB PO PRN (03:21)
[2025-06-10] MEDS: ONDANSETRON 4 MG/2 ML VIAL IVP PRN (06:20)
[2025-06-10 06:44] LABS: Glucose,Whole Blood 81 mg/dL (70-110)
--- NOTE | 2025-06-10 06:52 | P.EN ---
Rapid Response Note Date & Time: 06/10/2025 0640 Reason for Call: Left facial tremor and right upper extremity tremoring. Clinical Summary: Patient admitted for acute diverticulitis. Rapid response activated due to tremors; symptoms resolved upon GLASS CUT OFF SUPERVISOR arrival. Hypertension noted: SBP 180 mmHg (patient denies prior HTN history). PMH/Relevant Meds: Atrial fibrillation on anticoagulation (Xarelto). Neurologic Exam: NIHSS 0 (no focal deficits). Diagnostics Pending: Stat CTA head/neck and non-contrast CT brain ordered. Assessment: Resolved tremors Acute hypertension: New-onset, no prior HTN. Stroke risk: Low suspicion based on NIHSS 0 and resolved symptoms, but CTA/CT brain pending to rule out acute pathology. Anticoagulation status: On Eliquis -> would defer to stroke team but would be unlikely for a TNK candidate given anticoagulation use. Immediate Plan: Neuroimaging: Await stat CTA head/neck and CT brain results. Stroke Team Consult: Request input for further evaluation despite low stroke likelihood; emphasize anticoagulation status. Hypertension Management: Monitor BP. Anticoagulation: Continue Eliquis (AFib indication) unless imaging reveals contraindication (e.g., hemorrhage). Myles Holbrook MD Next Update: After imaging results/stroke team recs.
[2025-06-10] MEDS: LOSARTAN 50 MG TAB PO SCH (07:16)
[2025-06-10 07:19] LABS: Basophils # (A) 0.07 10*3/uL (0.00-0.10); Basophils % (A) 1.0 %; Eosinophils # (A) 0.40 10*3/uL (0.04-0.35); Eosinophils % (A) 5.7 %; HCT 38.0 % (37.2-46.3); HGB 12.7 g/dL (12.0-15.0); Lymphocytes # (A) 1.26 10*3/uL (0.90-5.00); Lymphocytes % (A) 17.9 %; MCH 27.2 pg (27.0-32.0); MCHC 33.4 g/dL (32.0-37.0); MCV 81.4 fL (80.0-97.0); Monocytes # (A) 0.68 10*3/uL (0.20-1.00); Monocytes % (A) 9.7 %; Neutrophils # (A) 4.57 10*3/uL (1.80-7.70); Neutrophils % (A) 65.0 %; Platelet Count 239 10*3/uL (140-440); RBC 4.67 10*6/uL (4.10-5.20); RDW 16.4 % (11.5-14.5); WBC 7.03 10*3/uL (4.50-10.00)
[2025-06-10 07:48] LABS: INR 1.6 (<1.2); Prothrombin Time 16.3 sec (10.0-12.5)
[2025-06-10 07:49] LABS: ALT 15 U/L (4-34); AST 21 U/L (14-36); African American GFR (CKD) 73 (>60 ml/min/1.73 sqM); Albumin 4.0 g/dL (3.5-5.0); Alkaline Phosphatase 145 U/L (38-126); Anion Gap 13 mmol/L; Blood Urea Nitrogen 8 mg/dL (7-17); Calcium 9.6 mg/dL (8.4-10.2); Carbon Dioxide 18 mmol/L (22-30); Chloride 106 mmol/L (98-107); Glucose 90 mg/dL (74-99); Non-African American GFR(CKD) 64 (>60 ml/min/1.73 sqM); Potassium 4.4 mmol/L (3.5-5.1); Sodium 137 mmol/L (137-145); Total Protein 6.5 g/dL (6.3-8.2)
--- NOTE | 2025-06-10 08:06 | CT ---
EXAM: CT Angiography Head With Intravenous Contrast CLINICAL HISTORY: ITS.REASON CT Reason: stroke like symptoms TECHNIQUE: Axial computed tomographic angiography images of the head with intravenous contrast. CTDI is 48.8 mGy and DLP is 1615.9 mGy-cm. This CT exam was performed using one or more of the following dose reduction techniques: automated exposure control, adjustment of the mA and/or kV according to patient size, and/or use of iterative reconstruction technique. MIP reconstructed images were created and reviewed. COMPARISON: No relevant prior studies available. FINDINGS: Right internal carotid artery: No acute findings. Intracranial segment is patent with no significant stenosis. No aneurysm. Right anterior cerebral artery: No occlusion or significant stenosis. No aneurysm. Right middle cerebral artery: No occlusion or significant stenosis. No aneurysm. Right posterior cerebral artery: origin of the posterior cerebral arteries. Right vertebral artery: Unremarkable as visualized. Left internal carotid artery: No acute findings. Intracranial segment is patent with no significant stenosis. No aneurysm. Left anterior cerebral artery: No occlusion or significant stenosis. No aneurysm. Left middle cerebral artery: No occlusion or significant stenosis. No aneurysm. Left posterior cerebral artery: See above. Left vertebral artery: Unremarkable as visualized. Basilar artery: No occlusion or significant stenosis. No aneurysm. IMPRESSION: No acute findings in the arteries of the head/brain. EXAM: CT Angiography Neck With Intravenous Contrast CLINICAL HISTORY: ITS.REASON CT Reason: stroke like symptoms TECHNIQUE: Routine carotid CT angiography protocol was performed with intravenous contrast. NASCET criteria using the distal ICAs for comparison were used for evaluation of stenoses. This CT exam was performed using one or more of the following dose reduction techniques: automated exposure control, adjustment of the mA and/or kV according to patient size, and/or use of iterative reconstruction technique. MIP reconstructed images were created and reviewed. COMPARISON: None. FINDINGS: VASCULATURE: Right common carotid artery: No significant stenosis. No dissection or occlusion. Right internal carotid artery: Extracranial segment is patent with no significant stenosis. No dissection or occlusion. Right external carotid artery: No occlusion. Right vertebral artery: No significant stenosis. No dissection or occlusion. Left common carotid artery: No significant stenosis. No dissection or occlusion. Left internal carotid artery: Extracranial segment is patent with no significant stenosis. No dissection or occlusion. Left external carotid artery: No occlusion. Left vertebral artery: No significant stenosis. No dissection or occlusion. Aorta: Bovine aortic arch. NECK: Bones/joints: No acute findings. Soft tissues: Unremarkable. Lung apices: No acute disease. CAROTID STENOSIS REFERENCE USING NASCET CRITERIA: % ICA stenosis = (1 - narrowest ICA diameter/diameter of distal cervical ICA) x 100. Mild - <50% stenosis. Moderate - 50-69% stenosis. Severe - 70-94% stenosis. Near occlusion - 95-99% stenosis. Occluded - 100% stenosis. IMPRESSION: No acute findings in the arteries of the neck.
[2025-06-10] MEDS: DULoxetine HCL 60 MG CAPSULE.DR PO SCH (08:26)
[2025-06-10] MEDS: LEVOTHYROXINE 112 MCG TAB PO SCH (08:27)
[2025-06-10] MEDS: metroNIDAZOLE-NS PMX 500 MG in SALINE 1 100ML.BAG IVPB SCH (08:28)
[2025-06-10] MEDS: CHOLECALCIFEROL 25 MCG (1000 IU) TABLET PO SCH (08:34)
[2025-06-10] MEDS ORDERED: cefTRIAXone IN SWFI 1,000 MG/10 ML SYRINGE IVP SCH (09:00)
[2025-06-10] MEDS ORDERED: NON FORMULARY DRUG (Lubiprostone [Lubiprostone] 24 MCG Capsule) PO PRN (09:00)
[2025-06-10] MEDS: NON FORMULARY DRUG (Phentermine Hcl [Adipex-P] 37.5 MG Tablet) PO SCH (09:00)
[2025-06-10] MEDS ORDERED: AMOXIC-POT CLAV 875-125MG 1 EACH TAB PO SCH (09:00)
[2025-06-10] MEDS: PANTOPRAZOLE 40 MG/10 ML VIAL IV SCH (10:56)
[2025-06-10] MEDS: PIPERACILLIN-TAZOBACTAM 3.375 GM in SODIUM CHLORIDE 0.9% 100 ML IVPB SCH (10:56)
--- NOTE | 2025-06-10 15:44 | P.HPIM ---
History of Present Illness H&P Date: 06/10/25 Chief Complaint: Acute sigmoid diverticulitis HISTORY OF PRESENT ILLNESS: This is a 80-year-old female with a previous medical history significant for hypertension and hypertensive cardiovascular disease, mixed hyperlipidemia, paroxysmal atrial fibrillation, TIA, GERD, depression, constipation, psoriasis, osteopenia, recurrent urinary tract infection due to incomplete bladder emptying, has been under the care of urology, patient was having some lower abdominal pain initially she had a urine specimen that was checked in the office few days ago and she was positive for E. coli ESBL and she was supposed to be started on ciprofloxacin 500 mg orally twice every day for 7 days, they could not get a hold of her, apparently the patient was in the emergency department yesterday because of increased lower abdominal pain, associated with nausea but no vomiting, she was diagnosed of having limited none significant diverticulitis, and the decision was made to send the patient home on oral Augmentin she never picked up her Augmentin, she ended up coming back to the emergency department yesterday with increased abdominal pain, associated with nausea not able to keep anything down, show she had a repeated CT scan of the abdomen pelvis that did show evidence of an uncomplicated diverticulitis of the sigmoid region, and she was started initially on Rocephin and metronidazole, but because of her an underlying ESBL E. coli UTI that is sensitive to Zosyn as well as ciprofloxacin she was switched to Zosyn 3.375 g IV piggyback every 6 hours, and she was taken off Flagyl for anaerobes coverage, since she is switched to Zosyn, patient was seen in consultation by general surgery for further recommendation, patient also did not receive her gabapentin yesterday, rapid response was called as the patient did have some tremors in the right upper extremity and right face, her symptoms resolved by the time the rapid response team came to see the patient, for some reason CT angiography of the neck and the brain was obtained to rule out any acute ischemic stroke at this point in time came back negative at this time, and the patient was appeared a bit hypertensive, she was started on losartan 50 mg orally once every day, I came and saw the patient early in the morning today, and her blood pressure was 112/62, we will continue with losartan 50 mg once every day, monitor the patient very closely, patient was advised to take her gabapentin since she has not taken it in the last 24 hours. REVIEW OF SYSTEMS: Constitutional: No documented fever, no chills, no night sweats. No weight change. positive for weakness, fatigue or lethargy. No daytime sleepiness. EENT: No headache. No blurred vision or double vision, no loss of vision. No loss of Hearing, no ringing in the ears, no dizziness. No nasal drainage or congestion. No epistaxis. No sore throat. Lungs: No shortness of breath, no cough, no sputum production. No wheezing. Reports dyspnea with activity. Cardiovascular: No chest pain, no lower extremity edema. No palpitations. No paroxysmal nocturnal dyspnea. No orthopnea. No lightheadedness or dizziness. No syncopal episodes. Abdominal: Reports abdominal pain. positive for nausea, vomiting. No diarrhea. positive for constipation. No bloody or tarry stools reports loss of appetite. Genitourinary: No dysuria, increased frequency, urgency. No urinary retention. Musculoskeletal: No myalgias. No muscle weakness, no gait dysfunction, no frequent falls. No back pain. No neck pain. Integumentary: No wounds, no lesions. No rash or pruritus. No unusual bruising. No change in hair or nails. Neurologic: No aphasia. No facial droop. No change in mentation. No head injury. positive for headache. No paralysis. No paresthesia. Psychiatric: positive for depression. No anxiety. No mood swings. Endocrine: No abnormal blood sugars. No weight change. PAST MEDICAL HISTORY: Hypertension and hypertensive cardiovascular disease. Mixed hyperlipidemia. Paroxysmal atrial fibrillation. GERD with esophagitis. Chronic constipation. Recurrent UTI. Incomplete bladder emptying. TIA. Osteopenia. Psoriasis. Hypothyroidism. Depression. Obesity. PAST SURGICAL HISTORY: Appendectomy. Laparoscopic cholecystectomy. Complete hysterectomy. Bilateral knee replacement. Right foot crush injury surgery x 2. EGD/colonoscopy 04/23/2024. Bilateral cataract surgery. SOCIAL HISTORY: Patient is a lifelong non-smoker, she denies any alcohol ingestion, she lives with her , she denies any drug use or abuse, she denies any marijuana use. FAMILY HISTORY: Father at the age of 67 from melanoma, mother at age of 68 from breast cancer, patient has 1 brother 69-year-old with history of COPD, patient had 3 sisters 1 at the age of 66 from pancreatic cancer 1 sister at the age of 78 from COPD and the other 1 is okay. Patient has 1 son 52-year-old alive and well, patient has 1 daughter 49-year-old alive and well. PHYSICAL EXAMINATION: General: 80-year-old female laying down in bed in no distress. HEENT: Head is atraumatic, normocephalic, pupils were equal round reactive to light and recommendation, extraocular muscle movement were intact, sclera nonicteric, conjunctivae were pale, mucous membranes of the mouth are somewhat dry. Neck: Supple, no JVP, normal carotid upstroke bilaterally, no lymphadenopathy. Chest: Decreased breath sounds at the bases, few rhonchi, no expiratory wheezes, no chest wall tenderness, no intercostal retractions. Heart: First heart sound is normal, second heart sounds normal there is systolic ejection murmur 2/6 located in the left sternal border. Abdomen: Soft, mild tenderness to the left lower quadrant, no rebound or guarding positive bowel sounds. There is no hepatosplenomegaly. Extremities: There is no edema no calf tenderness DP +2 bilaterally. Neurologic examination: Patient is awake alert and oriented x3, cranial nerves II-12 appear grossly intact, muscle power were 5 out of 5 in upper extremities and 5 out of 5 in bilateral lower extremities, deep tendon reflexes normal bilaterally. ASSESSMENT AND PLAN: 1. Acute uncomplicated sigmoid diverticulitis without perforation or abscess formation associated with SIRS. Continue patient on IV antibiotic in the form of Zosyn 3.375 g IV piggyback every 8 hours, discontinue Flagyl, discontinue c eftriaxone, keep the patient on clear liquid diet, continue current pain management, general surgery consultation from Dr. Acuna, follow-up with the patient very closely. 2. Short episode of tremor in the right upper extremity that triggered rapid response team with negative CT angiography of the neck and the brain as well, she was a bit hypertensive she was started on losartan 50 mg once every day, her blood pressure was evaluated by myself today it was 112/62, we will continue to follow-up with the patient very closely, patient did not have any TIA or any CVA at this point in time. 3. Recent ESBL E.coli UTI with SIRS that was not treated continue patient on Zosyn as it is sensitive. 4. Hypertension and hypertensive cardiovascular disease. Continue patient on losartan 50 mg orally once every day, metoprolol ER 25 mg orally at bedtime monitor the patient blood pressure very closely. 5. Mixed hyperlipidemia. The patient was taken off atorvastatin 80 mg and she was kept on Zetia 10 mg once every day as well as Repatha 140 mg subcutaneously every 2 weeks, follow-up with the patient very closely. 6. Hypothyroidism. Continue patient on Synthroid 112 mcg orally once every d ay. 7. Paroxysmal atrial fibrillation. Continue patient on flecainide 100 mg orally twice every day, Xarelto 20 mg once every day, patient follows with cardiology on a regular basis. 8. GERD. Continue patient on pantoprazole 40 mg once every day. 9. Severe idiopathic constipation. Continue patient on lubiprostone 24 mcg orally twice every day. Discontinue Mounjaro. Discontinue Adipex. 10. Major depressive disorder. Continue patient on duloxetine 60 mg orally once every day. 11. Peripheral neuropathy. Continue gabapentin 600 mg at bedtime. We will try to wean the patient off gabapentin down the line. 12. TIA. Patient did have a CT angiography of the neck and the brain did not show evidence of acute abnormalities. Continue patient on Repatha 140 mg subcutaneously every 2 weeks. Keep LDL cholesterol 55-70. 13. DVT prophylaxis. Continue patient on Xarelto 20 mg orally once every day. 14. GI prophylaxis. Continue Protonix 40 mg orally once every day. 15. Admit to inpatient. Estimated length of stay 2 midnights. 16. Full code. Past Medical History Past Medical History: Atrial Fibrillation, CVA/TIA, GERD/Reflux, Hyperlipidemia, Osteoarthritis (OA), Skin Disorder, Thyroid Disorder Additional Past Medical History / Comment(s): TIA (2014), Psoriatic Arthritis., gout., hypothyroid, past hx of GERD with hiatal hernia repair,. Psoriasis., Varicose veins., Shields's cyst on Lt knee, chronic constipation, Gas., chronic UTI- hx of blood in urine. History of Any Multi-Drug Resistant Organisms: ESBL Date of last positivie culture/infection: 05/30/25 MDRO Source:: urine Past Surgical History: Appendectomy, Cholecystectomy, Hernia Repair, Hysterectomy, Joint Replacement, Orthopedic Surgery Additional Past Surgical History / Comment(s): Lap Mario Fundoplication (02/2018), EGDs/colonoscopy, Total R knee arthroplasty, R shoulder rotator cuff repair, ORIF R foot fx x2 surgeries, surgery for ruptured ovarian cyst., TotaL Left Knee. Past Anesthesia/Blood Transfusion Reactions: No Reported Reaction Additional Past Anesthesia/Blood Transfusion Reaction / Comment(s): . Past Psychological History: Depression Smoking Status: Never smoker Past Alcohol Use History: None Reported Past Drug Use History: None Reported - Past Family History Mother Family Medical History: Cancer Additional Family Medical History / Comment(s): MOTHER HAD BREAST CANCER. Father Family Medical History: Cancer Additional Family Medical History / Comment(s): FATHER HAD MELANOMA Sister(s) Family Medical History: Cancer Additional Family Medical History / Comment(s): ONE SISTER HAD PANCREATIC CANCER. Another sister had bowel cancer. Medications and Allergies Home Medications Medication Instructions Recorded Confirmed Type DULoxetine HCL [Cymbalta] 120 mg PO DAILY 10/14/17 06/10/25 History Flecainide Acetate [Tambocor] 100 mg PO Q12HR 07/28/18 06/10/25 History Gabapentin 1,200 mg PO HS 02/24/23 06/10/25 History Lubiprostone 24 mcg PO BID PRN 04/22/24 06/10/25 History Rivaroxaban [Xarelto] 20 mg PO HS 04/22/24 06/10/25 History Amoxic-Pot Clav 875-125Mg 1 tab PO Q12HR #20 tab 06/09/25 06/10/25 Rx [Augmentin 875-125] Atorvastatin [Lipitor] 80 mg PO HS 06/09/25 06/10/25 History Cholecalciferol [Vitamin D3 (25 25 mcg PO DAILY 06/09/25 06/10/25 History Mcg = 1000 Iu)] Docusate [Colace] 100 mg PO HS 06/09/25 06/10/25 History Evolocumab [Repatha Sureclick] 140 mg SQ Q14D 06/09/25 06/10/25 History Ezetimibe [Zetia] 10 mg PO HS 06/09/25 06/10/25 History Levothyroxine Sodium [Synthroid] 112 mcg PO DAILY 06/09/25 06/10/25 History Metoclopramide [Reglan] 10 mg PO TID PRN #15 tab 06/09/25 06/10/25 Rx Metoprolol Succinate [Metoprolol 25 mg PO HS 06/09/25 06/10/25 History Succinate ER] Mv-Mn/Om3/Dha/Epa/Fish/Lut/Diony 1 cap PO HS 06/09/25 06/10/25 History [Ocuvite Adult 50 Plus Softgel] Ondansetron Odt [Zofran Odt] 4 mg PO BID PRN 06/09/25 06/10/25 History Phentermine HCl [Adipex-P] 37.5 mg PO DAILY 06/09/25 06/10/25 History Tirzepatide [Mounjaro] 15 mg SQ MO 06/09/25 06/10/25 History Allergies Allergy/AdvReac Type Severity Reaction Status Date / Time estradiol Allergy Rash/Hives Verified 06/09/25 20:48 Sulfa (Sulfonamide Allergy Rash/Hives Verified 06/09/25 20:48 Antibiotics) Physical Exam Vitals: Vital Signs Temp Pulse Pulse Resp BP BP Pulse Ox 06/10/25 08:38 98.1 F 99 16 172/82 100 06/10/25 06:43 98.5 F 99 18 184/96 100 06/10/25 00:56 175/85 06/10/25 00:32 91 162/76 06/10/25 00:05 98.1 F 95 17 187/82 100 06/09/25 23:52 97.5 F L 06/09/25 23:16 95 17 168/84 99 06/09/25 21:46 92 18 165/97 100 06/09/25 20:47 97.9 F 104 H 18 162/81 99 Intake and Output 06/09/25 06/10/25 06/10/25 22:59 06:59 14:59 Other: # Voids 1 Weight 77.564 kg 77.564 kg Results CBC & Chem 7: 06/10/25 07:04 06/10/25 07:04 Labs: Abnormal Lab Results - Last 24 Hours (Table) 06/09/25 06/09/25 06/09/25 Range/Units 21:35 21:35 21:35 Hgb 11.9 L (12.0-15.0) g/dL Hct 34.6 L (37.2-46.3) % MPV 8.5 L (9.5-12.2) fL Immature Gran # 0.05 H (0.00-0.04) 10*3/uL Eosinophils # (0.04-0.35) 10*3/uL PT (10.0-12.5) sec INR 1.2 H (<1.2) Sodium 133 L (137-145) mmol/L Carbon Dioxide 16 L (22-30) mmol/L Alkaline Phosphatase 136 H (38-126) U/L 06/10/25 06/10/25 06/10/25 Range/Units 07:04 07:04 07:04 Hgb (12.0-15.0) g/dL Hct (37.2-46.3) % MPV 8.4 L (9.5-12.2) fL Immature Gran # 0.05 H (0.00-0.04) 10*3/uL Eosinophils # 0.40 H (0.04-0.35) 10*3/uL PT 16.3 H (10.0-12.5) sec INR 1.6 H (<1.2) Sodium (137-145) mmol/L Carbon Dioxide 18 L (22-30) mmol/L Alkaline Phosphatase 145 H (38-126) U/L Thrombosis Risk Factor Assmnt - Choose All That Apply Any of the Below Risk Factors Present?: Yes Each Risk Factor Represents 3 Points: Age 75 years or older Other congenital or acquired thrombophilia - If yes, enter type in comment: No Thrombosis Risk Factor Assessment Total Risk Factor Score: 3 Thrombosis Risk Factor Assessment Level: Moderate Risk
--- NOTE | 2025-06-10 21:23 | P.GSCN ---
History of Present Illness History of present illness: Patient is a 80-year-old female presenting to [facility] with complaints of left lower quadrant and periumbilical pain for the last several days the patient was seen in the hospital was eventually discharged home and now is coming back with similar complaints recent CT of the abdomen pelvis demonstrated diverticulitis uncomplicated with no fluid collection. She currently is afeb rile denies nausea vomiting fevers chills shortness of breath or chest pain the last episode was 2 years ago last colonoscopy was within 1 year Review of Systems - Constitutional Reports as per HPI Past Medical History Past Medical History: Atrial Fibrillation, CVA/TIA, GERD/Reflux, Hyperlipidemia, Osteoarthritis (OA), Skin Disorder, Thyroid Disorder Additional Past Medical History / Comment(s): TIA (2014), Psoriatic Arthritis., gout., hypothyroid, past hx of GERD with hiatal hernia repair,. Psoriasis., Varicose veins., Shields's cyst on Lt knee, chronic constipation, Gas., chronic UTI- hx of blood in urine. History of Any Multi-Drug Resistant Organisms: ESBL Year Discovered:: 05/30/25 MDRO Source:: urine Past Surgical History: Appendectomy, Cholecystectomy, Hernia Repair, Hy sterectomy, Joint Replacement, Orthopedic Surgery Additional Past Surgical History / Comment(s): Lap Mario Fundoplication (02/2018), EGDs/colonoscopy, Total R knee arthroplasty, R shoulder rotator cuff repair, ORIF R foot fx x2 surgeries, surgery for ruptured ovarian cyst., TotaL Left Knee. Past Anesthesia/Blood Transfusion Reactions: No Reported Reaction Additional Past Anesthesia/Blood Transfusion Reaction / Comm: . Past Psychological History: Depression Smoking Status: Never smoker Past Alcohol Use History: None Reported Past Drug Use History: None Reported - Past Family History Mother Family Medical History: Cancer Additional Family Medical History / Comment(s): MOTHER HAD BREAST CANCER. Father Family Medical History: Cancer Additional Family Medical History / Comment(s): FATHER HAD MELANOMA Sister(s) Family Medical History: Cancer Additional Family Medical History / Comment(s): ONE SISTER HAD PANCREATIC CANCER. Another sister had bowel cancer. Medications and Allergies Home Medications Medication Instructions Recorded Confirmed Type DULoxetine HCL [Cymbalta] 120 mg PO DAILY 10/14/17 06/10/25 History Flecainide Acetate [Tambocor] 100 mg PO Q12HR 07/28/18 06/10/25 History Gabapentin 1,200 mg PO HS 02/24/23 06/10/25 History Lubiprostone 24 mcg PO BID PRN 04/22/24 06/10/25 History Rivaroxaban [Xarelto] 20 mg PO HS 04/22/24 06/10/25 History Amoxic-Pot Clav 875-125Mg 1 tab PO Q12HR #20 tab 06/09/25 06/10/25 Rx [Augmentin 875-125] Atorvastatin [Lipitor] 80 mg PO HS 06/09/25 06/10/25 History Cholecalciferol [Vitamin D3 (25 25 mcg PO DAILY 06/09/25 06/10/25 History Mcg = 1000 Iu)] Docusate [Colace] 100 mg PO HS 06/09/25 06/10/25 History Evolocumab [Repatha Sureclick] 140 mg SQ Q14D 06/09/25 06/10/25 History Ezetimibe [Zetia] 10 mg PO HS 06/09/25 06/10/25 History Levothyroxine Sodium [Synthroid] 112 mcg PO DAILY 06/09/25 06/10/25 History Metoclopramide [Reglan] 10 mg PO TID PRN #15 tab 06/09/25 06/10/25 Rx Metoprolol Succinate [Metoprolol 25 mg PO HS 06/09/25 06/10/25 History Succinate ER] Mv-Mn/Om3/Dha/Epa/Fish/Lut/Diony 1 cap PO HS 06/09/25 06/10/25 History [Ocuvite Adult 50 Plus Softgel] Ondansetron Odt [Zofran Odt] 4 mg PO BID PRN 06/09/25 06/10/25 History Phentermine HCl [Adipex-P] 37.5 mg PO DAILY 06/09/25 06/10/25 History Tirzepatide [Mounjaro] 15 mg SQ MO 06/09/25 06/10/25 History Allergies Allergy/AdvReac Type Severity Reaction Status Date / Time estradiol Allergy Rash/Hives Verified 06/09/25 20:48 Sulfa (Sulfonamide Allergy Rash/Hives Verified 06/09/25 20:48 Antibiotics) Surgical - Exam Osteopathic Statement: *. No significant issues noted on an osteopathic structural exam other than those noted in the History and Physical/Consult. Vital Signs Temp Pulse Resp BP Pulse Ox 97.9 F 104 H 18 162/81 99 06/09/25 20:47 06/09/25 20:47 06/09/25 20:47 06/09/25 20:47 06/09/25 20:47 - General General No acute distress Cardiovascular regular rate and rhythm Pulmonary nonlabored breathing Abdomen soft tender to palpation minimally in the left lower quadrant no guarding or rebound tenderness multiple surgical scars Results - Labs 06/10/25 07:04 06/10/25 07:04 Abnormal Lab Results - Last 24 Hours (Table) 06/09/25 06/09/25 06/09/25 Range/Units 21:35 21:35 21:35 Hgb 11.9 L (12.0-15.0) g/dL Hct 34.6 L (37.2-46.3) % MPV 8.5 L (9.5-12.2) fL Immature Gran # 0.05 H (0.00-0.04) 10*3/uL Eosinophils # (0.04-0.35) 10*3/uL PT (10.0-12.5) sec INR 1.2 H (<1.2) Sodium 133 L (137-145) mmol/L Carbon Dioxide 16 L (22-30) mmol/L Alkaline Phosphatase 136 H (38-126) U/L 06/10/25 06/10/25 06/10/25 Range/Units 07:04 07:04 07:04 Hgb (12.0-15.0) g/dL Hct (37.2-46.3) % MPV 8.4 L (9.5-12.2) fL Immature Gran # 0.05 H (0.00-0.04) 10*3/uL Eosinophils # 0.40 H (0.04-0.35) 10*3/uL PT 16.3 H (10.0-12.5) sec INR 1.6 H (<1.2) Sodium (137-145) mmol/L Carbon Dioxide 18 L (22-30) mmol/L Alkaline Phosphatase 145 H (38-126) U/L Diabetes panel 06/09/25 06/10/25 Range/Units 21:35 07:04 Sodium 133 L 137 (137-145) mmol/L Potassium 3.9 4.4 (3.5-5.1) mmol/L Chloride 105 106 (98-107) mmol/L Carbon Dioxide 16 L 18 L (22-30) mmol/L BUN 11 8 (7-17) mg/dL Creatinine 0.86 0.88 (0.52-1.04) mg/dL Glucose 93 90 (74-99) mg/dL Calcium 9.7 9.6 (8.4-10.2) mg/dL AST 18 21 (14-36) U/L ALT 14 15 (4-34) U/L Alkaline Phosphatase 136 H 145 H (38-126) U/L Total Protein 6.3 6.5 (6.3-8.2) g/dL Albumin 3.9 4.0 (3.5-5.0) g/dL Calcium panel 06/09/25 06/10/25 Range/Units 21:35 07:04 Calcium 9.7 9.6 (8.4-10.2) mg/dL Albumin 3.9 4.0 (3.5-5.0) g/dL Pituitary panel 06/09/25 06/10/25 Range/Units 21:35 07:04 Sodium 133 L 137 (137-145) mmol/L Potassium 3.9 4.4 (3.5-5.1) mmol/L Chloride 105 106 (98-107) mmol/L Carbon Dioxide 16 L 18 L (22-30) mmol/L BUN 11 8 (7-17) mg/dL Creatinine 0.86 0.88 (0.52-1.04) mg/dL Glucose 93 90 (74-99) mg/dL Calcium 9.7 9.6 (8.4-10.2) mg/dL Adrenal panel 06/09/25 06/10/25 Range/Units 21:35 07:04 Sodium 133 L 137 (137-145) mmol/L Potassium 3.9 4.4 (3.5-5.1) mmol/L Chloride 105 106 (98-107) mmol/L Carbon Dioxide 16 L 18 L (22-30) mmol/L BUN 11 8 (7-17) mg/dL Creatinine 0.86 0.88 (0.52-1.04) mg/dL Glucose 93 90 (74-99) mg/dL Calcium 9.7 9.6 (8.4-10.2) mg/dL Total Bilirubin 0.5 0.6 (0.2-1.3) mg/dL AST 18 21 (14-36) U/L ALT 14 15 (4-34) U/L Alkaline Phosphatase 136 H 145 H (38-126) U/L Total Protein 6.3 6.5 (6.3-8.2) g/dL Albumin 3.9 4.0 (3.5-5.0) g/dL Assessment and Plan Assessment: 80-year-old female with diverticulitis, uncomplicated IV antibiotics IV fluids N.p.o. Patient is doing well wanted to give her another day of bowel rest will likely attempt clear liquid diet in the a.m. Time with Patient: Greater than 30
[2025-06-10] MEDS: METOPROLOL SUCCINATE (ER) 25 MG TAB.ER.24H PO SCH (21:24)
[2025-06-10] MEDS: DOCUSATE 100 MG CAP PO SCH (21:24)
[2025-06-10] MEDS: MELATONIN 3 MG TABLET PO PRN (22:10)
[2025-06-11] MEDS: DULoxetine HCL 60 MG CAPSULE.DR PO SCH (08:39)
[2025-06-11 08:57] LABS: Basophils # (A) 0.08 X 10*3/uL (0.00-0.10); Basophils % (A) 1.1 %; Eosinophils # (A) 0.49 X 10*3/uL (0.04-0.35); Eosinophils % (A) 6.5 %; HCT 37.0 % (37.2-46.3); HGB 12.1 g/dL (12.0-15.0); Immature Grans, Automated 0.70 %; Lymphocytes # (A) 1.51 X 10*3/uL (0.90-5.00); Lymphocytes % (A) 19.9 %; MCH 26.8 pg (27.0-32.0); MCHC 32.7 g/dL (32.0-37.0); MCV 81.9 FL (80.0-97.0); Monocytes # (A) 0.69 X 10*3/uL (0.20-1.00); Monocytes % (A) 9.1 %; NRBC Per 100 WBC 0 X 10*3/uL (0.00-0.01); Neutrophils # (A) 4.75 X 10*3/uL (1.80-7.70); Neutrophils % (A) 62.7 %; Platelet Count 263 X 10*3/uL (140-440); RBC 4.52 X 10*6/uL (4.10-5.20); RDW 17.0 % (11.5-14.5); WBC 7.57 X 10*3/uL (4.50-10.00)
[2025-06-11 09:02] LABS: ALT 14 U/L (8-44); AST 18 U/L (13-35); Albumin 4.0 g/dL (3.8-4.9); Albumin/Globulin Ratio 2.00 Ratio (1.60-3.17); Alkaline Phosphatase 132 U/L (41-126); Anion Gap 13.40 mmol/L (4.00-12.00); BUN/Creat Ratio 7.90 Ratio (12.00-20.00); Blood Urea Nitrogen 7.9 mg/dL (9.0-27.0); Calcium 8.6 mg/dL (8.7-10.3); Carbon Dioxide 17.6 mmol/L (21.6-31.8); Chloride 105 mmol/L (96-109); Globulin 2.0 g/dL (1.6-3.3); Glucose 101 mg/dL (70-110); Magnesium 1.7 mg/dL (1.5-2.4); Potassium 3.6 mmol/L (3.5-5.5); Sodium 136 mmol/L (135-145); Total Protein 6.0 g/dL (6.2-8.2)
--- NOTE | 2025-06-11 15:04 | P.PN ---
Subjective Patient seen and evaluated at bedside. Patient doing well, denies nausea or vomiting, pain has improved. Objective - Vital Signs Vital signs: Vital Signs Temp 98 F 06/11/25 13:41 Pulse 77 06/11/25 13:41 Resp 18 06/11/25 13:41 BP 151/91 06/11/25 13:41 Pulse Ox 99 06/11/25 13:41 FiO2 Intake & Output 06/10/25 06/11/25 06/11/25 18:59 06:59 18:59 Intake Total 0 480 Balance 0 480 Intake: Oral 0 480 Other: Voiding Method Toilet Toilet # Voids 2 2 1 - Exam gen: nad cv: rrr pul: non labored breathing abd: soft,, non tender to palpation, no guarding or rebound tenderness - Labs CBC & Chem 7: 06/11/25 04:51 06/11/25 04:51 Labs: Abnormal Lab Results - Last 24 Hours (Table) 06/11/25 06/11/25 Range/Units 04:51 04:51 Hct 37.0 L (37.2-46.3) % MCH 26.8 L (27.0-32.0) pg RDW 17.0 H (11.5-14.5) % MPV 8.7 L (9.5-12.2) FL Immature Gran # 0.05 H (0.00-0.04) X 10*3/uL Eosinophils # 0.49 H (0.04-0.35) X 10*3/uL Carbon Dioxide 17.6 L (21.6-31.8) mmol/L Anion Gap 13.40 H (4.00-12.00) mmol/L BUN 7.9 L (9.0-27.0) mg/dL Est GFR (CKD-EPI) 58 L (>=60) BUN/Creatinine Ratio 7.90 L (12.00-20.00) Ratio Calcium 8.6 L (8.7-10.3) mg/dL Alkaline Phosphatase 132 H (41-126) U/L Total Protein 6.0 L (6.2-8.2) g/dL Assessment and Plan Assessment: 80 yo female w/ diverticulitis, improving no abdominal pain this am advance to clear liquid diet anticipate discharge tomorrow 06/12 Time with Patient: Less than 30
--- NOTE | 2025-06-11 15:54 | P.PN ---
Subjective Progress Note Date: 06/11/25 HISTORY OF PRESENT ILLNESS: This is a 80-year-old female with a previous medical history signif icant for hypertension and hypertensive cardiovascular disease, mixed hyperlipidemia, paroxysmal atrial fibrillation, TIA, GERD, depression, constipation, psoriasis, osteopenia, recurrent urinary tract infection due to incomplete bladder emptying, has been under the care of urology, patient was having some lower abdominal pain initially she had a urine specimen that was checked in the office few days ago and she was positive for E. coli ESBL and she was supposed to be started on ciprofloxacin 500 mg orally twice every day for 7 days, they could not get a hold of her, apparently the patient was in the emergency department yesterday because of increased lower abdominal pain, associated with nausea but no vomiting, she was diagnosed of having limited none significant diverticulitis, and the decision was made to send the patient home on oral Augmentin she never picked up her Augmentin, she ended up coming back to the emergency department yesterday with increased abdominal pain, associated with nausea not able to keep anything down, show she had a repeated CT scan of the abdomen pelvis that did show evidence of an uncomplicated diverticulitis of the sigmoid region, and she was started initially on Rocephin and metronidazole, but because of her an underlying ESBL E. coli UTI that is sensitive to Zosyn as well as ciprofloxacin she was switched to Zosyn 3.375 g IV piggyback every 6 justen rs, and she was taken off Flagyl for anaerobes coverage, since she is switched to Zosyn, patient was seen in consultation by general surgery for further recommendation, patient also did not receive her gabapentin yesterday, rapid response was called as the patient did have some tremors in the right upper extremity and right face, her symptoms resolved by the time the rapid response team came to see the patient, for some reason CT angiography of the neck and the brain was obtained to rule out any acute ischemic stroke at this point in time came back negative at this time, and the patient was appeared a bit hypertensive, she was started on losartan 50 mg orally once every day, I came and saw the patient early in the morning today, and her blood pressure was 112/62, we will continue with losartan 50 mg once every day, monitor the patient very closely, patient was advised to take her gabapentin since she has not taken it in the last 24 hours. 7/19: Patient sitting at the edge of the bed, she is feeling a lot better today, she denies any chest pain, shortness of breath, she has no abdominal pain, she did have a bowel movement, she has no diarrhea, no hematemesis or hematochezia, she was seen earlier by surgery, she has been maintained on Zosyn 3.375 g IV piggyback every 8 hours, continue with that for another 24 hours, then switch the patient to Augmentin 875 mg orally twice every day for 7 days tomorrow morning and continue with soft diet at that time, follow-up with me as an ou tpatient in a week or so. REVIEW OF SYSTEMS: Constitutional: No documented fever, no chills, no night sweats. No weight change. positive for weakness, fatigue or lethargy. No daytime sleepiness. EENT: No headache. No blurred vision or double vision, no loss of vision. No loss of Hearing, no ringing in the ears, no dizziness. No nasal drainage or congestion. No epistaxis. No sore throat. Lungs: No shortness of breath, no cough, no sputum production. No wheezing. Reports dyspnea with activity. Cardiovascular: No chest pain, no lower extremity edema. No palpitations. No paroxysmal nocturnal dyspnea. No orthopnea. No lightheadedness or dizziness. No syncopal episodes. Abdominal: Reports no abdominal pain. no nausea, vomiting. No diarrhea. positive for constipation. No bloody or tarry stools reports loss of appetite. Genitourinary: No dysuria, increased frequency, urgency. No urinary retention. Musculoskeletal: No myalgias. No muscle weakness, no gait dysfunction, no frequent falls. No back pain. No neck pain. Integumentary: No wounds, no lesions. No rash or pruritus. No unusual bruising. No change in hair or nails. Neurologic: No aphasia. No facial droop. No change in mentation. No head injury. positive for headache. No paralysis. No paresthesia. Psychiatric: positive for depression. No anxiety. No mood swings. Endocrine: No abnormal blood sugars. No weight change. PHYSICAL EXAMINATION: General: 80-year-old female laying down in bed in no distress. HEENT: Head is atraumatic, normocephalic, pupils were equal round reactive to light and recommendation, extraocular muscle movement were intact, sclera nonicteric, conjunctivae were pale, mucous membranes of the mouth are somewhat dry. Neck: Supple, no JVP, normal carotid upstroke bilaterally, no lymphadenopathy. Chest: Decreased breath sounds at the bases, few rhonchi, no expiratory wheezes, no chest wall tenderness, no intercostal retractions. Heart: First heart sound is normal, second heart sounds normal there is systolic ejection murmur 2/6 located in the left sternal border. Abdomen: Soft, mild tenderness to the left lower quadrant, no rebound or guarding positive bowel sounds. There is no hepatosplenomegaly. Extremities: There is no edema no calf tenderness DP +2 bilaterally. Neurologic examination: Patient is awake alert and oriented x3, cranial nerves II-12 appear grossly intact, muscle power were 5 out of 5 in upper extremities and 5 out of 5 in bilateral lower extremities, deep tendon reflexes normal bilaterally. ASSESSMENT AND PLAN: 1. Acute uncomplicated sigmoid diverticulitis without perforation or abscess formation associated with SIRS. Continue patient on IV antibiotic in the form of Zosyn 3.375 g IV piggyback every 8 hours, continue to follow-up with the patient very closely advance diet to full liquid diet. Probably soft diet tomorrow morning. 2. Short episode of tremor in the right upper extremity that triggered rapid response team with negative CT angiography of the neck and the brain as well, she was a bit hypertensive she was started on losartan 50 mg once every day, her blood pressure was evaluated by myself today it was 112/62, we will continue to follow-up with the patient very closely, patient did not have any TIA or any CVA at this point in time. 3. Recent ESBL E.coli UTI with SIRS that was not treated continue patient on Zosyn as it is sensitive. 4. Hypertension and hypertensive cardiovascular disease. Continue patient on losartan 50 mg orally once every day, metoprolol ER 25 mg orally at bedtime monitor the patient blood pressure very closely. 5. Mixed hyperlipidemia. The patient was taken off atorvastatin 80 mg and she was kept on Zetia 10 mg once every day as well as Repatha 140 mg subcutaneously every 2 weeks, follow-up with the patient very closely. 6. Hypothyroidism. Continue patient on Synthroid 112 mcg orally once every day. 7. Paroxysmal atrial fibrillation. Continue patient on flecainide 100 mg orally twice every day, Xarelto 20 mg once every day, patient follows with cardiology on a regular basis. 8. GERD. Continue patient on pantoprazole 40 mg once every day. 9. Severe idiopathic constipation. Continue patient on lubiprostone 24 mcg orally twice every day. Discontinue Mounjaro. Discontinue Adipex. 10. Major depressive disorder. Continue patient on duloxetine 60 mg orally once every day. 11. Peripheral neuropathy. Continue gabapentin 600 mg at bedtime. We will try to wean the patient off gabapentin down the line. 12. TIA. Patient did have a CT angiography of the neck and the brain did not show evidence of acute abnormalities. Continue patient on Repatha 140 mg subcutaneously every 2 weeks. Keep LDL cholesterol 55-70. 13. DVT prophylaxis. Continue patient on Xarelto 20 mg orally once every day. 14. GI prophylaxis. Continue Protonix 40 mg orally once every day. 15. Home tomorrow morning. Objective - Vital Signs Vital signs: Vital Signs Temp 98 F 06/11/25 13:41 Pulse 77 06/11/25 13:41 Resp 18 06/11/25 13:41 BP 151/91 06/11/25 13:41 Pulse Ox 99 06/11/25 13:41 FiO2 Intake & Output 06/10/25 06/11/25 06/11/25 18:59 06:59 18:59 Intake Total 0 480 Balance 0 480 Intake: Oral 0 480 Other: Voiding Method Toilet Toilet # Voids 2 2 1 - Labs CBC & Chem 7: 06/11/25 04:51 06/11/25 04:51 Labs: Abnormal Lab Results - Last 24 Hours (Table) 06/11/25 06/11/25 Range/Units 04:51 04:51 Hct 37.0 L (37.2-46.3) % MCH 26.8 L (27.0-32.0) pg RDW 17.0 H (11.5-14.5) % MPV 8.7 L (9.5-12.2) FL Immature Gran # 0.05 H (0.00-0.04) X 10*3/uL Eosinophils # 0.49 H (0.04-0.35) X 10*3/uL Carbon Dioxide 17.6 L (21.6-31.8) mmol/L Anion Gap 13.40 H (4.00-12.00) mmol/L BUN 7.9 L (9.0-27.0) mg/dL Est GFR (CKD-EPI) 58 L (>=60) BUN/Creatinine Ratio 7.90 L (12.00-20.00) Ratio Calcium 8.6 L (8.7-10.3) mg/dL Alkaline Phosphatase 132 H (41-126) U/L Total Protein 6.0 L (6.2-8.2) g/dL
[2025-06-11] MEDS: GABAPENTIN 300 MG CAP PO SCH (20:33)
[2025-06-12 00:53] VITALS: RESP 18
[2025-06-12 08:00] VITALS: BP 173/88; PULSE 86; TEMP 97.5
--- NOTE | 2025-06-12 08:39 | P.DS ---
Providers Date of admission: 06/10/25 09:09 Expected date of discharge: 06/12/25 Attending physician: Brook Fiore Consults: 06/10/25 11:00 Consult Physician Stat Consulting Provider: Campbell Siu Reason/Comments: diverticulitis Do you want consulting provider notified?: Yes Primary care physician: Brook Fiore Hospital Course: HISTORY OF PRESENT ILLNESS: This is a 80-year-old female with a previous medical history significant for hypertension and hypertensive cardiovascular disease, mixed hyperlipidemia, paroxysmal atrial fibrillation, TIA, GERD, depression, constipation, psoriasis, osteopenia, recurrent urinary tract infection due to incomplete bladder emptying, has been under the care of urology, patient was having some lower abdominal pain initially she had a urine specimen that was checked in the office few days ago and she was positive for E. coli ESBL and she was supposed to be started on ciprofloxacin 500 mg orally twice every day for 7 days, they could not get a hold of her, apparently the patient was in the emergency department yesterday because of increased lower abdominal pain, associated with nausea but no vomiting, she was diagnosed of having limited none significant diverticulitis, and the decision was made to send the patient home on oral Augmentin she never picked up her Augmentin, she ended up coming back to the emergency department yesterday with increased abdominal pain, associated with nausea not able to keep anything down, show she had a repeated CT scan of the abdomen pelvis that did show evidence of an uncomplicated diverticulitis of the sigmoid region, and she was started initially on Rocephin and metronidazole, but because of her an underlying ESBL E. coli UTI that is sensitive to Zosyn as well as ciprofloxacin she was switched to Zosyn 3.375 g IV piggyback every 6 hours, and she was taken off Flagyl for anaerobes coverage, since she is switched to Zosyn, patient was seen in consultation by general surgery for further recommendation, patient also did not receive her gabapentin yesterday, rapid response was called as the patient did have some tremors in the right upper extremity and right face, her symptoms resolved by the time the rapid response team came to see the patient, for some reason CT angiography of the neck and the brain was obtained to rule out any acute ischemic stroke at this point in time came back negative at this time, and the patient was appeared a bit hypertensive, she was started on losartan 50 mg orally once every day, I came and saw the patient early in the morning today, and her blood pressure was 112/62, we will continue with losartan 50 mg once every day, monitor the patient very closely, patient was advised to take her gabapentin since she has not taken it in the last 24 hours. 06/11: Patient sitting at the edge of the bed, she is feeling a lot better today, she denies any chest pain, shortness of breath, she has no abdominal pain, she did have a bowel movement, she has no diarrhea, no hematemesis or hematochezia, she was seen earlier by surgery, she has been maintained on Zosyn 3.375 g IV piggyback every 8 hours, continue with that for another 24 hours, then switch the patient to Augmentin 875 mg orally twice every day for 7 days tomorrow morning and continue with soft diet at that time, follow-up with me as an outpatient in a week or so. 06/12: Patient is sitting up in bed in no apparent distress, she did have multiple episode of diarrhea today, she denies any fever or chills at this time, just likely related to the antibiotic, I will discontinue patient Zosyn at this point in time, start the patient on amoxicillinclavulanate 875 mg orally twice every day for 7 days, follow-up with me as an outpatient next week. Discharge diagnoses: 1. Acute uncomplicated sigmoid diverticulitis without perforation or abscess formation associated with SIRS. 2. Short episode of tremor in the right upper extremity that triggered rapid response team with negative CT angiography of the neck and the brain as well, 3. Recent ESBL E.coli UTI with SIRS 4. Hypertension and hypertensive cardiovascular disease. 5. Mixed hyperlipidemia. 6. Hypothyroidism. 7. Paroxysmal atrial fibrillation. 8. GERD. 9. Severe idiopathic constipation. 10. Major depressive disorder. 11. Peripheral neuropathy. 12. TIA. Patient Condition at Discharge: Stable Plan - Discharge Summary Discharge Rx Participant: Yes New Discharge Prescriptions: No Action DULoxetine HCL [Cymbalta] 120 mg PO DAILY Flecainide Acetate [Tambocor] 100 mg PO Q12HR Gabapentin 600 mg PO HS Rivaroxaban [Xarelto] 20 mg PO HS Levothyroxine Sodium [Synthroid] 112 mcg PO DAILY Docusate [Colace] 100 mg PO HS Atorvastatin [Lipitor] 80 mg PO HS Mv-Mn/Om3/Dha/Epa/Fish/Lut/Diony [Ocuvite Adult 50 Plus Softgel] 1 cap PO HS Lubiprostone 24 mcg PO BID PRN PRN Reason: Constipation Metoprolol Succinate [Metoprolol Succinate ER] 25 mg PO HS Ezetimibe [Zetia] 10 mg PO HS Evolocumab [Repatha Sureclick] 140 mg SQ Q14D Cholecalciferol [Vitamin D3 (25 Mcg = 1000 Iu)] 25 mcg PO DAILY Tirzepatide [Mounjaro] 15 mg SQ MO Phentermine HCl [Adipex-P] 37.5 mg PO DAILY Ondansetron Odt [Zofran Odt] 4 mg PO BID PRN PRN Reason: Nausea Discharge Medication List DULoxetine HCL [Cymbalta] 120 mg PO DAILY 10/14/17 [History] Flecainide Acetate [Tambocor] 100 mg PO Q12HR 07/28/18 [History] Gabapentin 600 mg PO HS 02/24/23 [History] Lubiprostone 24 mcg PO BID PRN 04/22/24 [History] Rivaroxaban [Xarelto] 20 mg PO HS 04/22/24 [History] Atorvastatin [Lipitor] 80 mg PO HS 06/09/25 [History] Cholecalciferol [Vitamin D3 (25 Mcg = 1000 Iu)] 25 mcg PO DAILY 06/09/25 [History] Docusate [Colace] 100 mg PO HS 06/09/25 [History] Evolocumab [Repatha Sureclick] 140 mg SQ Q14D 06/09/25 [History] Ezetimibe [Zetia] 10 mg PO HS 06/09/25 [History] Levothyroxine Sodium [Synthroid] 112 mcg PO DAILY 06/09/25 [History] Metoprolol Succinate [Metoprolol Succinate ER] 25 mg PO HS 06/09/25 [History] Mv-Mn/Om3/Dha/Epa/Fish/Lut/Diony [Ocuvite Adult 50 Plus Softgel] 1 cap PO HS 06/09/25 [History] Ondansetron Odt [Zofran Odt] 4 mg PO BID PRN 06/09/25 [History] Phentermine HCl [Adipex-P] 37.5 mg PO DAILY 06/09/25 [History] Tirzepatide [Mounjaro] 15 mg SQ MO 06/09/25 [History] Follow up Appointment(s)/Referral(s): Brook Fiore MD [Primary Care Provider] - 1-2 days
[2025-06-13] MEDS ORDERED: NON FORMULARY DRUG (Evolocumab [Repatha Sureclick] 140 MG/ML Each) SQ SCH (09:00)
[2025-06-13] MEDS ORDERED: NON FORMULARY DRUG (Tirzepatide [Mounjaro] 15 MG/0.5 ML Pen.Injctr) SQ SCH (09:00)
--- NOTE | 2025-06-14 16:33 | CT ---
EXAMINATION TYPE: CT brain wo con DATE OF EXAM: 06/10/2025 6:59 AM COMPARISON: MRI brain 03/25/2025 CLINICAL INDICATION: Female, 80 years old with history of stroke like symptoms, TECHNIQUE: CT of the brain is performed utilizing 3 mm thick sections through the posterior fossa and 3 mm thick sections through the remaining calvarium. Study is performed within 24 hours of arrival to the hospital. Images are presented today this time for final interpretation, previous dictation ca nnot be located. The axial brain windows are unavailable and cannot be recovered which may limit eval uation. Brain is reviewed on the coronal and sagittal planes. There is limitation in interpretation. Contrast used: mL of , (none if empty) CT DLP: 1615.9 mGycm, Automated exposure control for dose reduction was used. FINDINGS: No abnormal hyperdensity is present to suggest an acute intracranial hemorrhage. No mass lesion is evident. No acute infarcts are evident. Mild periventricular white matter hypodensity may be present, likely o n the basis of chronic white matter ischemic changes. Ventricles and sulci are prominent for the patient age. Paranasal sinuses and mastoid air cells within the [id number] are clear. There is some hyperostosis frontalis internus, a normal variant. IMPRESSION: 1. No acute intracranial process. Follow up MRI can be performed as clinically indicated. 2. Chronic appearing periventricular white matter ischemic changes with atrophy. 3. Limitations discussed above. [facility], Workstation: [email or web address], 06/14/2025 4:31 PM
== END 2025-06-12 10:35 | disposition home or self-care (01) | DRG 392 ==
LOC: EC 20:45 → 1SOBS 22:37 → OBSVTOIN 06-10 09:09 → 6NMEDSUR 06-10 11:26
PROVIDERS: ADMIT Internal Medicine; ATTEND Internal Medicine
DX: K57.32 Diverticulitis of large intestine without perforation or abscess without bleeding (principal); B96.20 Unspecified Escherichia coli [E. coli] as the cause of diseases classified elsewhere; E03.9 Hypothyroidism, unspecified; I48.0 Paroxysmal atrial fibrillation; G62.9 Polyneuropathy, unspecified; E66.9 Obesity, unspecified; I11.9 Hypertensive heart disease without heart failure; F32.9 Major depressive disorder, single episode, unspecified; N39.0 Urinary tract infection, site not specified; Z16.12 Extended spectrum beta lactamase (ESBL) resistance; R25.1 Tremor, unspecified; K21.9 Gastro-esophageal reflux disease without esophagitis; K59.09 Other constipation; K21.00 Gastro-esophageal reflux disease with esophagitis, without bleeding; R33.9 Retention of urine, unspecified; M85.80 Other specified disorders of bone density and structure, unspecified site; L40.9 Psoriasis, unspecified; E78.2 Mixed hyperlipidemia; Z68.30 Body mass index [BMI] 30.0-30.9, adult; Z79.01 Long term (current) use of anticoagulants; Z79.890 Hormone replacement therapy; Z86.73 Personal history of transient ischemic attack (TIA), and cerebral infarction without residual deficits; Z79.899 Other long term (current) drug therapy; Z90.710 Acquired absence of both cervix and uterus; Z87.440 Personal history of urinary (tract) infections; Z96.653 Presence of artificial knee joint, bilateral
CPT/HCPCS: 36415; 70450; 70496; 70498; 74176; 80053; 83605; 83690; 83735; 85025; 85610; 85730; 96365; 96368; 96375; 99285

== ENCOUNTER → 2025-06-14 | Outpatient (CLI) | payer MEDICARE ==
--- NOTE | 2025-06-14 13:37 | MM ---
Reason for Exam: Screening (asymptomatic). Last mammogram was performed 1 year(s) and 5 month(s) ago. Patient History: Menarche at age 14. First Full-Term at age 26. Left ovary removed at age 39. Right ovary removed at age 39. Hysterectomy at age 39. Postmenopausal. 1982, Excisional Biopsy on the Right side. Paternal grandmother had breast cancer, age 80. Maternal aunt had breast cancer, age 60. Mother had breast cancer, age 68. Risk Values: Maria Teresa 5 year model risk: 3.9%. NCI Lifetime model risk: 6.9%. Prior Study Comparison: 12/31/2021 Right Diagnostic Mammogram, [facility]. 12/31/2022 Bilateral MG 3D screening mammo w/cad, [facility]. 01/02/2024 Bilateral MG 3D screening mammo w/cad, [facility]. Tissue Density: There are scattered areas of fibroglandular density. Findings: Analyzed By CAD. Right breast: There is no suspicious group of microcalcifications or new suspicious mass. Left breast: There is no suspicious group of microcalcifications or new suspicious mass. Overall Assessment: Negative, BI-RAD 1 Management: Screening Mammogram of both breasts in [address] [facility] will attempt to contact patient to return for supplemental views and ultrasound if indicated. Patient should continue monthly self-breast exams. A clinical breast exam by your physician is recommended on an annual basis. This exam should not preclude additional follow-up of suspicious palpable abnormalities. Note on Maria Teresa scores and lifetime risk: 1. A Maria Teresa score greater than 3% is considered moderate risk. If this is the case, consider specialist referral to assess eligibility for a risk reducing agent. 2. If overall lifetime risk for the development of breast cancer is 20% or higher, the patient may qualify for future screening with alternating mammogram and breast MRI. [facility], , 06/14/2025 1:34 PM. Electronically signed and approved by: Beka Loyd DO
== END | disposition home or self-care (01) ==
LOC: RADMAMWWP 12:43
PROVIDERS: ATTEND Internal Medicine
DX: Z12.31 Encounter for screening mammogram for malignant neoplasm of breast (principal); R92.323 Mammographic fibroglandular density, bilateral breasts; Z78.0 Asymptomatic menopausal state; Z80.3 Family history of malignant neoplasm of breast
CPT/HCPCS: 77063; 77067